=== PATIENT | male | born 1975 | race Caucasian/White ===

== ENCOUNTER 2020-05-31 07:41 | Outpatient (REF) | payer MEDICAID, SELFPAY | END 2020-05-31 07:42 | disposition home or self-care (01) | LOC: HO.LAB 07:41 | PROVIDERS: Visit Provider Internal Medicine | DX: Z20.828 Contact with and (suspected) exposure to other viral communicable diseases (principal) | CPT/HCPCS: C9803; U0003 ==

== ENCOUNTER 2020-06-10 17:44 | Outpatient (REF) | payer MEDICAID, SELFPAY | END 2020-06-10 17:45 | disposition home or self-care (01) | LOC: HO.LAB 17:44 | PROVIDERS: Visit Provider Internal Medicine | DX: Z20.828 Contact with and (suspected) exposure to other viral communicable diseases (principal) | CPT/HCPCS: C9803; U0003 ==

== ENCOUNTER 2020-07-05 08:21 | Outpatient (REF) | payer MEDICAID, SELFPAY | END 2020-07-05 08:22 | disposition home or self-care (01) | LOC: HO.LAB 08:21 | PROVIDERS: Visit Provider Internal Medicine | DX: Z20.828 Contact with and (suspected) exposure to other viral communicable diseases (principal) | CPT/HCPCS: C9803; U0003 ==

== ENCOUNTER 2020-08-22 17:07 | Outpatient (REF) | payer MEDICAID, SELFPAY | END 2020-08-22 17:08 | disposition home or self-care (01) | LOC: HO.LAB 17:07 | PROVIDERS: Visit Provider Internal Medicine | DX: Z20.822 Contact with and (suspected) exposure to COVID-19 (principal) | CPT/HCPCS: 36415; C9803; U0003; U0005 ==

== ENCOUNTER 2020-11-11 14:29 | Outpatient (REF) | payer MEDICAID, SELFPAY ==
[2020-11-11 14:55] LABS: COVID-19 Test Negative (Negative)
== END 2020-11-11 14:30 | disposition home or self-care (01) ==
LOC: HO.LAB 14:29
PROVIDERS: Visit Provider Internal Medicine
DX: Z20.822 Contact with and (suspected) exposure to COVID-19 (principal)
CPT/HCPCS: 36415; 87635; C9803

== ENCOUNTER 2020-11-14 07:46 | Outpatient (REF) | payer MEDICAID, SELFPAY | END 2020-11-14 07:47 | disposition home or self-care (01) | LOC: HO.LAB 07:46 | PROVIDERS: Visit Provider Internal Medicine | DX: Z20.822 Contact with and (suspected) exposure to COVID-19 (principal) | CPT/HCPCS: C9803; U0003; U0005 ==

== ENCOUNTER → 2021-08-12 14:38 | Outpatient (BNVA) | payer MEDICAID, SELFPAY | PROVIDERS: PCP Family Medicine; Visit Provider Urology | DX: N52.9 Male erectile dysfunction, unspecified (principal) | CPT/HCPCS: 99212 ==

== ENCOUNTER 2021-08-29 10:36 | Outpatient (REF) | payer MEDICAID, SELFPAY ==
[2021-08-29 11:26] LABS: Hematocrit 45.6 % (42.0-52.0); Hemoglobin 13.2 g/dl (14.0-18.0); Mean Corpuscular HGB Conc 28.9 g/dl (31.0-36.0); Mean Corpuscular Hemoglobin 21.3 pg (27.0-33.0); Mean Corpuscular Volume 73.4 fL (80.0-98.0); Platelet Count 246 X10*3/uL (160-400); Red Blood Count 6.21 X10*6/uL (4.60-5.80); Red Cell Distribution Width 15.7 % (11.0-16.0); White Blood Count 4.8 X10*3/uL (4.8-10.8)
[2021-08-29 11:38] LABS: Estimated Average Glucose 120 mg/dL; Hemoglobin A1c % 5.8 %
[2021-08-29 11:58] LABS: Alanine Aminotransferase 16 U/L (0-40); Albumin Level 4.3 g/dL (3.5-5.0); Alkaline Phosphatase 67 U/L (39-117); Anion Gap 9 (12-20); Aspartate Amino Transferase 21 U/L (5-37); Bilirubin Direct 0.4 mg/dL (0.0-0.5); Blood Urea Nitrogen 11 mg/dL (9-16); Calcium 9.6 mg/dL (8.4-10.2); Carbon Dioxide 29 mmol/L (22-29); Chloride 106 mmol/L (96-108); Cholesterol 145 mg/dL; Estimated Glomerular Filt Rate > 60; Glucose Fasting 102 mg/dL (60-99); HDL Cholesterol 31 mg/dL; LDL Cholesterol Calculated 101 mg/dl; Potassium 4.4 mmol/L (3.3-5.1); Sodium 140 mmol/L (135-145); Total Protein 7.5 g/dL (6.5-8.0); Triglycerides 66 mg/dL
[2021-09-03 12:51] LABS: Testosterone, Total 578 ng/dL (250-1100)
== END 2021-08-29 10:37 | disposition home or self-care (01) ==
LOC: HO.LAB 10:36
PROVIDERS: PCP Family Medicine; Visit Provider Urology
DX: E11.9 Type 2 diabetes mellitus without complications (principal); N52.9 Male erectile dysfunction, unspecified; E29.1 Testicular hypofunction
CPT/HCPCS: 36415; 80048; 80061; 80076; 83036; 84403; 85027

== ENCOUNTER → 2021-09-09 11:55 | Outpatient (BNVA) | payer MEDICAID, SELFPAY | PROVIDERS: PCP Family Medicine; Visit Provider Urology ==

== ENCOUNTER 2022-01-15 22:32 | Emergency (ER) | payer MEDICAID, SELFPAY ==
[2022-01-15 23:18] VITALS: BP 133/86; PULSE 67; RESP 20; TEMP 36.4; O2SAT 98; BMI 27.4
[2022-01-15 23:53] LABS: Strep A Nucleic Acid Negative (Negative)
[2022-01-16 00:06] LABS: COVID-19 Test Negative (Negative); IDNOW Serial# 16C4AD1C; Influenza A Negative (Negative); Influenza B2 Negative (Negative)
--- NOTE | 2022-01-16 00:25 | ED.URI ---
HPI - URI/Sore Throat General Chief Complaint: General Medical Stated Complaint: throat pain Time Seen by Provider: 01/16/22 00:24 Source: patient Mode of arrival: ambulatory Limitations: no limitations History of Present Illness HPI Narrative: Patient with slight sore throat with swelling of the right side of the neck for last 2 weeks no cough no fever no chills no shortness of breath no earaches Related Data Previous Rx's Medication Instructions Recorded tadalafil 5 mg tablet 5 mg PO DAILY 90 days #90 tabs 09/09/21 cephalexin 500 mg capsule 500 mg PO QID 10 days #40 caps 01/16/22 Allergies Allergy/AdvReac Type Severity Reaction Status Date / Time No Known Allergies Allergy Verified 09/09/21 11:56 Review of Systems Review of Systems: Yes all other systems are reviewed and are negative [facility] Past Medical History Medical History Abdominal distension, gaseous Abnormal CT of the abdomen Asthma Dyspepsia GERD (gastroesophageal reflux disease) History of diverticulitis Thalassemia Umbilical hernia Surgical History History of surgery Social History Social History Advance Directives: No Advance Directives Information Provided: Yes Physical Exam Vital Signs: Vital Signs: Last Vital Signs Temp 97.5 F 01/15/22 23:18 Pulse 74 01/16/22 00:41 Resp 16 01/16/22 00:41 BP 136/86 01/16/22 00:41 Pulse Ox 95 01/16/22 00:41 O2 Del Method 01/16/22 00:41 BMI result Body Mass Index 27.4 HEENT: Ears: hearing grossly normal bilaterally, external ears normal, TM's normal bilaterally and EAC's normal Mouth: Normal oral and palatal mucosa present Throat: Yes posterior oropharynx normal Neck: Neck: Yes lymphadenopathy (Anterior cervical submandibular lymph node) MDM - URI/Sore Throat Lab Data Labs: Lab Results 01/15/22 01/15/22 01/15/22 Range/Units 23:32 23:32 23:32 COVID-19 ([facility]) Negative (Negative) COVID-19 Clin Com See Note Influenza Type A ([facility]) Negative (Negative) Influenza Type B ([facility]) Negative (Negative) Influenza A & B Note See Note S. pyogenes GrpA [facility] Negative (Negative) Discharge Plan Discharge Clinical Impression: Folliculitis Patient Disposition: Home, Self-Care Instructions: Folliculitis (ED) Additional Instructions: Care as advised take antibiotic as prescribed Prescriptions: New cephalexin 500 mg capsule 500 mg PO QID 10 Days Qty: 40 0RF No Action tadalafil 5 mg tablet 5 mg PO DAILY 90 Days Qty: 90 1RF Interventions: ED Discharge Assessment Last Done: 01/16/22 00:45 Discharge Date/Time: 01/16/22 00:46
[2022-01-16] MEDS: cephALEXin 500 MG CAPSULE PO (00:40)
[2022-01-16 00:41] VITALS: BP 136/86; PULSE 74; RESP 16; O2SAT 95
== END 2022-01-16 00:46 | disposition home or self-care (01) ==
PROVIDERS: Emergency Provider Internal Medicine
DX: L73.9 Follicular disorder, unspecified (principal); J02.9 Acute pharyngitis, unspecified; Z20.822 Contact with and (suspected) exposure to COVID-19; R59.1 Generalized enlarged lymph nodes
CPT/HCPCS: 36415; 87502; 87635; 87651; 99282; 99283

== ENCOUNTER → 2022-02-23 16:01 | Outpatient (BNVA) | payer MEDICAID, SELFPAY | PROVIDERS: Referring Provider Family Medicine; Visit Provider Nurse Practitioner | DX: Z01.818 Encounter for other preprocedural examination (principal); K21.9 Gastro-esophageal reflux disease without esophagitis; R11.0 Nausea; Z79.899 Other long term (current) drug therapy | CPT/HCPCS: 99202; 99212 ==

== ENCOUNTER 2022-05-17 06:18 | Day surgery (SDC) | payer MEDICAID, SELFPAY ==
[2022-05-12 09:48] VITALS: BMI 27.4
--- NOTE | 2022-05-14 13:08 | MHC.SHP ---
Pre-Procedural Eval Section A Date of Service: 05/14/22 The patient is an INPATIENT: No Changes since office visit: No Cold of Flu in the past 2 weeks, No New Medical Problems, No Changes in Medication and No Patient answered all questions The History & Physical has been completed within 30 days and I have reviewed it.: Yes Section B Chief Complaint: Age-related nuclear cataract, right eye Allergies: Allergies Allergy/AdvReac Type Severity Reaction Status Date / Time No Known Allergies Allergy Verified 03/17/22 14:01 Plan Diagnosis/Plan: Unchanged I have reviewed the history and physical and performed a pertinent physical examination on my patient. No changes have occurred unless specified.
[2022-05-17 06:50] VITALS: BMI 28.3
[2022-05-17 06:58] VITALS: BP 123/73; PULSE 66; RESP 16; TEMP 36.1; O2SAT 95
[2022-05-17] MEDS: Tetracaine HCl/PF 0.5% Oph Sol 4 ML DROPS 1 DROP EYE-RIGHT (07:04)
[2022-05-17] MEDS: Cyclopentolate 1 % Ophth Sol 2 ML DRPBTL 1 DROP EYE-RIGHT ×3 (07:07→07:19)
[2022-05-17] MEDS: Tropicamide 1 % Ophth Sol 3 ML BTL 1 DROP EYE-RIGHT ×3 (07:08→07:21)
[2022-05-17] MEDS: Lactated Ringers 500 ML 50 ML IV (07:09)
[2022-05-17] MEDS: Ketorolac Tromethamine 0.5% Op 5 ML DROPS 1 DROP EYE-RIGHT ×3 (07:10→07:22)
[2022-05-17] MEDS: Phenylephrine HCL 2.5% Oph SoL 2 ML BOTTLE 1 DROP EYE-RIGHT ×3 (07:12→07:23)
--- NOTE | 2022-05-17 07:18 | P.CONAN_ITS ---
[facility] Active Problems Active Problems: All Active Problems (Updated 05/12/22 @ 09:44 by Sandee Yeager RN) Erectile dysfunction (Acute) Pre-op examination (Acute) Past Medical History Medical History (Updated 05/12/22 @ 09:44 by Sandee Yeager RN) Abdominal distension, gaseous Abnormal CT of the abdomen Acute renal failure Asthma Depression Dyspepsia GERD (gastroesophageal reflux disease) History of diverticulitis Thalassemia Umbilical hernia Family History Family history of problems with anesthesia: No Surgical History Surgical History (Updated 05/12/22 @ 09:49 by Sandee Yeager RN) H/O esophagogastroduodenoscopy H/O inguinal hernia repair S/P ORIF (open reduction internal fixation) fracture History of Problems with Anesthesia: No Social History Social History Patient Tobacco Use Status: Never used Tobacco Use of substances other than those prescribed or required for medical reasons: No Are you DNR?: No Advance Directives: No Advance Directives Information Provided: Yes Meds Allergies Allergy/AdvReac Type Severity Reaction Status Date / Time No Known Allergies Allergy Verified 03/17/22 14:01 Active Medications: Current Medications Povidone Iodine (Povidone Iodine 5 % Ophth Soln 30 Ml Bottle) 1 appl EYE-RIGHT PREOP PRN PRN Reason: Pre-Op Surgical Implant Prophy Home Medications Medication Instructions Recorded Confirmed Last Taken Type albuterol sulfate 90 mcg/actuation 2 puff PO Q4-6H PRN dyspnea 02/23/22 05/17/22 Unknown History aerosol inhaler (ProAir HFA) omeprazole 20 mg capsule,delayed 20 mg PO BID 02/23/22 05/17/22 Unknown History release Exam Exam Date and Time: May 17, 2022 0718 Height,Weight and Vital Signs: Height 5 ft 5 in Weight 77.111 kg Last Vital Signs Temp 97.0 F 05/17/22 06:58 Pulse 66 05/17/22 06:58 Resp 16 05/17/22 06:58 BP 123/73 05/17/22 06:58 Pulse Ox 95 05/17/22 06:58 O2 Del Method 05/17/22 06:58 Airway Mallampati Class: II TM Dist: >3cm Neck ROM: Full Heart: rrr Lungs: cta Assessment and Plan Assessment Anesthesia Assessment: Anesthesia Plan Discussed and Chart Reviewed Final Anesthetic Review Family History of Problems with Anesthesia: No History of Problems with Anesthesia: No NPO: Yes ASA Class: II Final Preanesthetic Review: No Changes in Pt Med Stat, Meds/Allgs Chart Reviewed and Consent Obtained/Reviewed Patient Risk: Intermediate Procedure Risk: Intermediate Anesthetic Plan Anesthetic Plan: MAC: Disposition: Standard PACU
--- NOTE | 2022-05-17 08:03 | HO.PNOPHT ---
Ophthalmology Procedure Procedure Date of Service: 05/17/22 Ophthalmology Viscoelastic: Jimi Juarezt Dual Pack Pro Ophthalmology Lenses: TECGIA [id number] (19) Procedure Notes: PREOPERATIVE DIAGNOSIS: Decreased visual acuity right eye secondary to cataract POSTOPERATIVE DIAGNOSIS: Same PROCEDURE: Right cataract extraction with intraocular lens insertion SURGEON: Altaf Santillan M.D. ANESTHESIA: Topical/MAC ESTIMATED BLOOD LOSS: None COMPLICATIONS: None After obtaining informed consent, the patient was brought to the operating room suite and placed in the supine position. After adequate sedation per anesthesia, topical drops of Tetracaine were given to the right eye. The eye was then prepped and draped in the usual sterile fashion. The operating room microscope was then positioned over the operative eye and a lid speculum placed. A paracentesis was created. Viscoelastic was then instilled into the anterior chamber. A three plane incision was then created temporally, utilizing a 2.85 mm keratome. Capsulotomy forceps were then utilized to create a circular tear capsulotomy. Hydrodissection and hydrodelineation were carried out until adequate mobilization of the nucleus occurred. Phacoemulsification was then utilized to remove the dense central nucleus followed by removal of the cortical material utilizing the automated aspiration irrigation unit. Viscoelastic was instilled into the posterior capsular bag followed by placement of a posterior chamber intraocular lens without difficulty. The residual Viscoelastic was then removed utilizing the automated IA machine. The wound was checked and found to be watertight. The patient tolerated the procedure well and the lid speculum was removed. Intracameral injection of Vigamox 0.1 mL followed by a subtenon injection of Kenalog-40 0.2 mL were administered. The patient will be seen in the a.m.
[2022-05-17 08:34] VITALS: BP 111/74; PULSE 62; RESP 16; TEMP 36.1; O2SAT 94
== END 2022-05-17 08:42 | disposition home or self-care (01) ==
PROVIDERS: PCP Family Medicine; Visit Provider Ophthalmology
PROC: (CPT 66985; principal; 2022-05-17 08:20)
DX: H25.041 Posterior subcapsular polar age-related cataract, right eye (principal); H54.7 Unspecified visual loss; H35.09 Other intraretinal microvascular abnormalities; H17.89 Other corneal scars and opacities; R03.0 Elevated blood-pressure reading, without diagnosis of hypertension; J45.20 Mild intermittent asthma, uncomplicated; D56.9 Thalassemia, unspecified; K21.9 Gastro-esophageal reflux disease without esophagitis; Z79.899 Other long term (current) drug therapy
CPT/HCPCS: 66984; J2250; J3010; J3300; V2632

== ENCOUNTER 2022-08-10 06:07 | Day surgery (SDC) | payer MEDICAID, SELFPAY ==
[2022-08-04 15:31] VITALS: BMI 28.3
[2022-08-10 06:42] VITALS: BP 127/77; PULSE 56; RESP 16; TEMP 36; O2SAT 96; BMI 28.3
--- NOTE | 2022-08-10 06:46 | HO.ANESPROP2 ---
HPI - Anesthesia Eval Consult details Narrative: 46 M for colonoscopy [facility] Active Problems Active Problems: All Active Problems (Updated 05/12/22 @ 09:44 by Sandee Yeager RN) Erectile dysfunction (Acute) Pre-op examination (Acute) Past Medical History Medical History (Updated 05/12/22 @ 09:44 by Sandee Yeager RN) Abdominal distension, gaseous Abnormal CT of the abdomen Acute renal failure Asthma Depression Dyspepsia GERD (gastroesophageal reflux disease) History of diverticulitis Thalassemia Umbilical hernia Functional capacity: independent ambulation Family History Family history of problems with anesthesia: No Surgical History Surgical History (Updated 05/12/22 @ 09:49 by Sandee Yeager RN) H/O esophagogastroduodenoscopy H/O inguinal hernia repair S/P ORIF (open reduction internal fixation) fracture History of Problems with Anesthesia: No Social History Social History Are you a primary care professionals to a significant other at home: No Do you presently have visiting nurse or other home services: No Patient Tobacco Use Status: Never used Tobacco Meds Allergies Allergy/AdvReac Type Severity Reaction Status Date / Time No Known Allergies Allergy Verified 08/04/22 15:30 Home Medications Medication Instructions Recorded Confirmed Last Taken Type albuterol sulfate 90 mcg/actuation 2 puff PO Q4-6H PRN dyspnea 02/23/22 08/04/22 Unknown History aerosol inhaler (ProAir HFA) omeprazole 20 mg capsule,delayed 20 mg PO BID 02/23/22 08/04/22 Unknown History release Exam Exam Date and Time: August 10, 2022 0646 Height,Weight and Vital Signs: Height 5 ft 5 in Weight 77.111 kg Last Vital Signs Temp 96.8 F 08/10/22 06:42 Pulse 56 08/10/22 06:42 Resp 16 08/10/22 06:42 BP 127/77 08/10/22 06:42 Pulse Ox 96 08/10/22 06:42 O2 Del Method 08/10/22 06:42 Airway Mallampati Class: III TM Dist: >3cm Neck ROM: Full Loose/Missing/Broken Teeth: Yes (Crowns ) Heart: S1,S2 Lungs: b/l breath sounds Assessment and Plan Assessment Anesthesia Assessment: Anesthesia Plan Discussed and Chart Reviewed Final Anesthetic Review Family History of Problems with Anesthesia: No History of Problems with Anesthesia: No NPO: Yes ASA Class: II Final Preanesthetic Review: Meds/Allgs Chart Reviewed, Consent Obtained/Reviewed and Anes Risks/Benef Reviewed Patient Risk: Intermediate Procedure Risk: Intermediate Anesthetic Plan Anesthetic Plan: MAC: Disposition: Standard PACU
--- NOTE | 2022-08-10 07:30 | MHC.SHP ---
Pre-Procedural Eval Section A Date of Service: 08/10/22 The patient is an INPATIENT: No The History & Physical has been completed within 30 days and I have reviewed it.: No Section B Chief Complaint: Colon cancer screening Details of Present Illness: COLON CANCER SCREENING Relevant Family History (Specify if Yes): No Relevant Social History: None Present Medications: see Short Stay Collaborative assessment Medical History: Significant History (Abdominal distension, gaseous Abnormal CT of the abdomen Acute renal failure Asthma Depression Dyspepsia GERD (gastroesophageal reflux disease) History of diverticulitis Thalassemia Umbilical hernia) History of Previous Operations: Relevant previous surgery/procedure and date(s) (H/O esophagogastroduodenoscopy H/O inguinal hernia repair S/P ORIF (open reduction internal fixation) fracture) Allergies: Allergies Allergy/AdvReac Type Severity Reaction Status Date / Time No Known Allergies Allergy Verified 08/04/22 15:30 Review of Systems Sugical H&P ROS: Negative: Constitution, Cardiovascular, Respiratory and Gastrointestinal Exam Surgical H&P Exam: Normal: Heart, Normal: Lungs, Normal: Extremities and Normal: Abdomen Plan Diagnosis/Plan: Unchanged I have reviewed the history and physical and performed a pertinent physical examination on my patient. No changes have occurred unless specified. Time Spent With Patient Time: Total time managing care of this patient today ____ minutes.
--- NOTE | 2022-08-10 08:06 | P.BOP_ITS ---
Brief Operative Note Date of Service: 08/10/22 Pre-op diagnosis: Colon cancer screening Post-op diagnosis: other (Diverticulosis, hemorrhoids) Procedure: COLONOSCOPY TILL CECUM Surgeon: Jules Arias MD Anesthesia: MAC Was an Health Science Specialist used for this Procedure?: Yes Health Science Specialist: Yue Wilks Estimated blood loss (mL): 0 Pathology: none sent Condition: stable Disposition: PACU
--- NOTE | 2022-08-10 08:07 | W.PM.OPN ---
Operative Note Operative Note Date of Service: 08/10/22 Narrative: Pre-op diagnosis: Colon cancer screening Post-op diagnosis:?other (Diverticulosis, hemorrhoids) Surgeon: Jules Arias MD Anesthesia:?MAC COLONOSCOPY TILL CECUM Consent: Indications for the procedure and potential complications of bleeding, perforation, reaction to medications and missed diagnosis were discussed with the patient and informed consent was obtained. Instrument: Olympus PCF H 190 L variable stiffness pediatric colonoscope Monitoring: Vital signs and clinical assessment, intermittent blood pressure monitoring, continuous EKG monitoring, Pulse oximetry and Carbon Dioxide monitoring were done throughout the procedure. Colon withdrawl time was 10 minutes. Procedure: The patient was placed in the left lateral decubitis position and pre-procedure medications were administered. After a digital rectal examination of the ano-rectum, the video colonoscope was inserted into the rectum and advanced through the colon to the cecum. The colonoscope was slowly withdrawn in a retrograde panoramic fashion and the colon mucosa was carefully examined including a retroflexed view of the rectum. Findings and interventions are described below. Procedure Difficulty: Without difficulty Findings: Terminal Ileum: Not evaluated Cecum: Normal Ascending Colon: Normal Transverse Colon: Normal Descending Colon: Normal Sigmoid Colon: Mild diverticulosis Rectum: Normal Ano-rectum: Small internal hemorrhoids Colon preparation: Good Impression and Post Procedure Diagnosis: Colonoscopy Findings: No polyps were detected Mild diverticulosis seen in the sigmoid colon Small hemorrhoids on retroflexed exam. Plan: Patient has an appointment on 08/24/22 in the GI Clinic with Silvia Overton NP . Repeat Colonoscopy in 10 years. Above findings were reviewed with the patient and diverticulosis handout was given in the discharge area
[2022-08-10 08:08] VITALS: BP 103/50; PULSE 59; RESP 16; TEMP 37.2; O2SAT 98
[2022-08-10 08:23] VITALS: BP 104/56; PULSE 53; RESP 16; O2SAT 98
[2022-08-10 08:38] VITALS: BP 118/74; PULSE 74; RESP 16; TEMP 37.2; O2SAT 98
== END 2022-08-10 09:59 | disposition home or self-care (01) ==
PROVIDERS: PCP Family Medicine; Visit Provider Internal Medicine Gastroenterology
PROC: 0DJD8ZZ Inspection of Lower Intestinal Tract, Via Natural or Artificial Opening Endoscopic (ICD-10-PCS; CPT 45378; principal; 2022-08-10 07:40)
DX: Z12.11 Encounter for screening for malignant neoplasm of colon (principal); K57.30 Diverticulosis of large intestine without perforation or abscess without bleeding; K64.8 Other hemorrhoids; K21.9 Gastro-esophageal reflux disease without esophagitis; J45.909 Unspecified asthma, uncomplicated; D56.9 Thalassemia, unspecified; R73.03 Prediabetes; F32.A Depression, unspecified; Z86.19 Personal history of other infectious and parasitic diseases; Z79.899 Other long term (current) drug therapy
CPT/HCPCS: 45378

== ENCOUNTER → 2022-08-24 15:28 | Outpatient (BNVA) | payer MEDICAID, SELFPAY | PROVIDERS: PCP Family Medicine; Visit Provider Nurse Practitioner | DX: K57.30 Diverticulosis of large intestine without perforation or abscess without bleeding (principal); K64.8 Other hemorrhoids; Z98.890 Other specified postprocedural states | CPT/HCPCS: 99212 ==

== ENCOUNTER 2022-10-13 10:00 | Outpatient (REF) | payer MEDICAID, SELFPAY | END 2022-10-13 10:01 | disposition home or self-care (01) | LOC: HO.LNP 10:00 | PROVIDERS: PCP Family Medicine; Visit Provider Surgery | DX: D23.5 Other benign neoplasm of skin of trunk (principal) | CPT/HCPCS: 11403; 88305; 99202 ==

== ENCOUNTER → 2022-10-20 10:25 | Outpatient (BNVA) | payer MEDICAID, SELFPAY | PROVIDERS: PCP Family Medicine; Visit Provider Surgery ==

== ENCOUNTER 2022-12-07 09:53 | Emergency (ER) | payer MEDICAID, SELFPAY ==
--- NOTE | ~2022-12-07 | XR_ITS ---
EXAMINATION: XR ELBOW, RIGHT CLINICAL INFORMATION: Pain COMPARISON: None available. TECHNIQUE: AP, lateral, and oblique views of the right elbow. FINDINGS: The bones and soft tissues are normal. No fracture or joint effusion. Alignment is anatomic. Joint spaces are maintained. XR/XR elbow RT 2V IMPRESSION: Normal right elbow.
[2022-12-07 10:05] VITALS: BP 143/77; PULSE 84; RESP 14; TEMP 36.6; O2SAT 96; BMI 22.5
--- NOTE | 2022-12-07 10:56 | ED.EXTPRO ---
HPI - Extremity Problem General Chief complaint: Extremity Injury, Upper Stated complaint: R arm pain Time Seen by Provider: 12/07/22 10:55 History of Present Illness HPI Narrative: patient complains of right elbow pain which began 5 days ago without injury, he has no repetitive activities, there is no overuse from work or sports There is no numbness weakness or tingling he denies any redness or swelling to the joint, there are no other joint swollen or painful Related Data Home Medications Medication Instructions Recorded Confirmed albuterol sulfate 90 mcg/actuation 2 puff PO Q4-6H PRN dyspnea 02/23/22 08/04/22 aerosol inhaler (ProAir HFA) omeprazole 20 mg capsule,delayed 20 mg PO BID 02/23/22 08/04/22 release Previous Rx's Medication Instructions Recorded naproxen 500 mg tablet (Naprosyn) 500 mg PO BID PRN pain #20 tabs 12/07/22 Allergies Allergy/AdvReac Type Severity Reaction Status Date / Time No Known Allergies Allergy Verified 10/20/22 10:31 [facility] Past Medical History Source: nursing notes reviewed Medical History Abdominal distension, gaseous Abnormal CT of the abdomen Acute renal failure Asthma Depression Dyspepsia GERD (gastroesophageal reflux disease) History of diverticulitis Thalassemia Umbilical hernia Surgical History H/O esophagogastroduodenoscopy H/O inguinal hernia repair S/P ORIF (open reduction internal fixation) fracture Social History Social History Are you a primary long term care administrator to a significant other at home: No Do you presently have visiting nurse or other home services: No Patient Tobacco Use Status: Never used Tobacco Advance Directives: No Advance Directives Information Provided: Yes Physical Exam Vital Signs: Vital Signs: Last Vital Signs Temp 97.8 F 12/07/22 10:05 Pulse 84 12/07/22 10:05 Resp 14 12/07/22 10:05 BP 143/77 H 12/07/22 10:05 Pulse Ox 96 12/07/22 10:05 BMI result Body Mass Index 22.5 general appearance comfortable no distress Head is normocephalic atraumatic Neck is supple Respiratory no distress Extremities full range of motion x4 including right elbow, the right elbow had some lateral tenderness but was otherwise completely normal in appearance there is no redness no swelling, there is full range of motion but there is some discomfort when he extends it fully but is easily able to extend it fully, neurovascular intact distal, no rashes no wounds rash Other extremities normal Course Course Course Narrative: x-ray of right elbow was normal Exam of the right elbow was normal except for lateral tenderness with no redness or swelling, patient likely has a tendinitis and is treated with anti-inflammatory Discharge Plan Discharge Clinical Impression: Right elbow tendinitis Patient Disposition: Home, Self-Care Additional Instructions: you likely have tendinitis which is an inflammation of tendons in the elbow We are treating with anti-inflammatory, if does not get better follow with orthopedist for further evaluation and possible cortisone injection Return any time any concerns Prescriptions: New naproxen [Naprosyn] 500 mg tablet 500 mg PO BID PRN (Reason: pain) Qty: 20 0RF No Action albuterol sulfate [ProAir HFA] 90 mcg/actuation HFA aerosol inhaler 2 puff PO Q4-6H PRN (Reason: dyspnea) omeprazole 20 mg capsule,delayed release(DR/EC) 20 mg PO BID Referrals: Antoine Pulido MD [Physician] - ( right elbow tendinitis)
== END 2022-12-07 11:20 | disposition home or self-care (01) ==
PROVIDERS: Emergency Provider Emergency Medicine Emergency Medical Services; PCP Family Medicine
DX: M79.601 Pain in right arm (principal); M77.8 Other enthesopathies, not elsewhere classified
CPT/HCPCS: 73070; 99283

== ENCOUNTER → 2022-12-16 10:31 | Outpatient (BNVA) | payer MEDICAID, SELFPAY | PROVIDERS: PCP Family Medicine; Visit Provider Nurse Practitioner | DX: Z01.818 Encounter for other preprocedural examination (principal); K22.10 Ulcer of esophagus without bleeding; R13.10 Dysphagia, unspecified | CPT/HCPCS: 99212 ==

== ENCOUNTER 2022-12-17 09:36 | Outpatient (REF) | payer MEDICAID, SELFPAY ==
[2022-12-17 09:54] LABS: MANUAL DIFF FLAG NO
[2022-12-17 10:58] LABS: Basophils Absolute Auto 0.1 X10*3/uL (0.0-0.2); Basophils Percent Auto 1.2 % (0-2); Eosinophils Absolute Auto 0.1 X10*3/uL (0.0-0.4); Eosinophils Percent Auto 1.6 % (0-4); Hematocrit 47.7 % (42.0-52.0); Lymphocytes Percent Auto 40.3 % (20-40); Mean Corpuscular HGB Conc 29.4 g/dl (31.0-36.0); Mean Corpuscular Hemoglobin 21.9 pg (27.0-33.0); Mean Corpuscular Volume 74.5 fL (80.0-98.0); Mean Platelet Volume 10.5 fL (9.4-12.4); Monocytes Absolute Auto 0.5 X10*3/uL (0.1-1.2); Monocytes Percent Auto 10.4 % (2-11); Neutrophils Absolute Auto 2.3 x10*3/uL (2.0-8.3); Neutrophils Percent Auto 46.5 % (45-73); Platelet Count 241 X10*3/uL (160-400); Red Cell Distribution Width 15.3 % (11.0-16.0); White Blood Count 4.9 X10*3/uL (4.8-10.8)
[2022-12-17 11:49] LABS: Alanine Aminotransferase 34 U/L (0-40); Albumin Level 4.4 g/dL (3.5-5.0); Alkaline Phosphatase 59 U/L (39-117); Anion Gap 12 (12-20); Aspartate Amino Transferase 30 U/L (5-37); Bilirubin Total 1.3 mg/dL (0.0-1.0); Blood Urea Nitrogen 12 mg/dL (9-16); Calcium 9.5 mg/dL (8.4-10.2); Carbon Dioxide 27 mmol/L (22-29); Chloride 105 mmol/L (96-108); Estimated Glomerular Filt Rate > 60; Glucose Random 101 mg/dL (60-115); Potassium 4.1 mmol/L (3.3-5.1); Sodium 140 mmol/L (135-145); Total Protein 7.7 g/dL (6.5-8.0)
== END 2022-12-17 09:37 | disposition home or self-care (01) ==
LOC: HO.LAB 09:36
PROVIDERS: PCP Family Medicine; Visit Provider Nurse Practitioner
DX: Z01.818 Encounter for other preprocedural examination (principal); K22.10 Ulcer of esophagus without bleeding; R13.10 Dysphagia, unspecified
CPT/HCPCS: 36415; 80053; 85025; 87338

== ENCOUNTER 2023-01-03 08:28 | Outpatient (REF) | payer MEDICAID, SELFPAY ==
--- NOTE | ~2023-01-03 | US_ITS ---
EXAMINATION: US ABDOMEN COMPLETE CLINICAL INFORMATION: Ulcer of esophagus without bleeding. COMPARISON: X-ray abdomen [facility] 04/18/2019. CT abdomen and pelvis 10/20/2017. TECHNIQUE: Real-time imaging of the abdominal viscera. FINDINGS: PANCREAS: Normal. ABDOMINAL AORTA: The proximal, mid, and distal segments are normal in caliber. INFERIOR VENA CAVA: Visualized portions are normal. LIVER: The liver is normal in size. The liver contour is normal. There is diffuse increased liver parenchymal echogenicity, consistent with hepatic steatosis. Multiple areas of focal fatty sparing are present. No focal hepatic lesion. There is no intrahepatic biliary duct dilatation seen. GALLBLADDER: Normal. The gallbladder is physiologically distended without evidence of stones, sludge, polyps, wall thickening or pericholecystic fluid. COMMON BILE DUCT: Normal in caliber measuring 0.2 cm in diameter. RIGHT KIDNEY: Normal. No hydronephrosis. No renal calculi or focal parenchymal lesions. The kidney measures 10.8 cm in maximum dimension. LEFT KIDNEY: Normal. No hydronephrosis. No renal calculi or focal parenchymal lesions. The kidney measures 9.9 cm in maximum dimension. SPLEEN: Normal. The spleen measures 9.5 cm in maximum dimension. FREE FLUID: None. US/US abdomen complete IMPRESSION: Hepatic steatosis.
== END 2023-01-03 08:29 | disposition home or self-care (01) ==
LOC: HO.US 08:28
PROVIDERS: PCP Family Medicine; Visit Provider Nurse Practitioner
DX: Z01.818 Encounter for other preprocedural examination (principal); R13.10 Dysphagia, unspecified; K22.10 Ulcer of esophagus without bleeding
CPT/HCPCS: 76700

== ENCOUNTER → 2023-01-06 10:43 | Outpatient (BNVA) | payer MEDICAID, SELFPAY | PROVIDERS: PCP Family Medicine; Visit Provider Nurse Practitioner | DX: K22.10 Ulcer of esophagus without bleeding (principal); R13.10 Dysphagia, unspecified; K59.00 Constipation, unspecified | CPT/HCPCS: 99212 ==

== ENCOUNTER 2023-02-01 12:14 | Day surgery (SDC) | payer MEDICAID, SELFPAY ==
--- NOTE | 2023-01-31 12:12 | HO.ANESPROP2 ---
Documented by User: Shira Burgos NP 01/31/23 12:18 HPI - Anesthesia Eval Consult details Narrative: 47yo M for Upper Endoscopy [facility] Active Problems Active Problems: All Active Problems (Updated 01/06/23 @ 11:15 by DELORES Lewis) Constipation (Acute) Dysphagia (Acute) Erosive esophagitis (Acute) Dermatofibroma of back (Acute) H/O colonoscopy (Acute) Erectile dysfunction (Acute) Pre-op examination (Acute) Past Medical History Medical History Abdominal distension, gaseous Abnormal CT of the abdomen Acute renal failure Asthma Depression Dyspepsia GERD (gastroesophageal reflux disease) History of diverticulitis Thalassemia Umbilical hernia Family History Family history of problems with anesthesia: No Surgical History Surgical History H/O esophagogastroduodenoscopy H/O inguinal hernia repair S/P ORIF (open reduction internal fixation) fracture History of Problems with Anesthesia: No Social History Social History Are you a primary daycare worker to a significant other at home: No Do you presently have visiting nurse or other home services: No Alcohol intake: never Patient Tobacco Use Status: Never used Tobacco Second Hand Smoke Exposure: No Meds Allergies Allergy/AdvReac Type Severity Reaction Status Date / Time No Known Allergies Allergy Verified 10/20/22 10:31 Home Medications Medication Instructions Recorded Confirmed Last Taken Type albuterol sulfate 90 mcg/actuation 2 puff PO Q4-6H PRN dyspnea 02/23/22 02/01/23 Unknown History aerosol inhaler (ProAir HFA) Exam Exam Date and Time: January 31, 2023 1212 Pertinent Lab Results Pertinent Lab Results: Laboratory Tests 12/17/22 12/17/22 09:52 09:52 WBC 4.9 Hgb 14.0 Hct 47.7 Plt Count 241 Sodium 140 Potassium 4.1 Chloride 105 Carbon Dioxide 27 BUN 12 Creatinine 1.05 Assessment and Plan Assessment Anesthesia Assessment: Chart Reviewed Final Anesthetic Review Family History of Problems with Anesthesia: No History of Problems with Anesthesia: No Documented by User: Sarah Dsouza MD 02/01/23 16:11 [facility] Past Medical History Medical History Abdominal distension, gaseous Abnormal CT of the abdomen Acute renal failure Asthma Depression Dyspepsia GERD (gastroesophageal reflux disease) History of diverticulitis Thalassemia Umbilical hernia Surgical History Surgical History H/O esophagogastroduodenoscopy H/O inguinal hernia repair S/P ORIF (open reduction internal fixation) fracture Social History Social History Are you a primary daycare worker to a significant other at home: No Do you presently have visiting nurse or other home services: No Alcohol intake: never Patient Tobacco Use Status: Never used Tobacco Second Hand Smoke Exposure: No Meds Allergies Allergy/AdvReac Type Severity Reaction Status Date / Time No Known Allergies Allergy Verified 10/20/22 10:31 Home Medications Medication Instructions Recorded Confirmed Last Taken Type albuterol sulfate 90 mcg/actuation 2 puff PO Q4-6H PRN dyspnea 02/23/22 02/01/23 Unknown History aerosol inhaler (ProAir HFA) Exam Height,Weight and Vital Signs: Height 5 ft 5 in Weight 80.739 kg Vital Signs Temp Pulse Resp BP Pulse Ox O2 Del Method 02/01/23 13:32 98.5 F 65 16 118/73 96 Room Air Airway Mallampati Class: II TM Dist: >3cm Neck ROM: Full Loose/Missing/Broken Teeth: No Heart: RRR Lungs: CTAB Assessment and Plan Assessment Anesthesia Assessment: Anesthesia Plan Discussed Final Anesthetic Review NPO: Yes ASA Class: III Final Preanesthetic Review: No Changes in Pt Med Stat, Meds/Allgs Chart Reviewed, Consent Obtained/Reviewed and Anes Risks/Benef Reviewed Patient Risk: Intermediate Procedure Risk: Low Assessment/Block/Sedation in SS: Assess/Block/Sedation-SS Anesthetic Plan Anesthetic Plan: MAC: Disposition: Standard PACU
[2023-02-01 13:15] VITALS: BMI 29.6
[2023-02-01 13:32] VITALS: BP 118/73; PULSE 65; RESP 16; TEMP 36.9; O2SAT 96
[2023-02-01] MEDS: Lactated Ringers 1,000 ML 100 ML IVCONT (13:33)
--- NOTE | 2023-02-01 15:36 | MHC.SHP ---
Pre-Procedural Eval Section A Date of Service: 02/01/23 The patient is an INPATIENT: No Changes since office visit: Yes Patient answered all questions; No Cold of Flu in the past 2 weeks, No New Medical Problems and No Changes in Medication The History & Physical has been completed within 30 days and I have reviewed it.: Yes Section B Chief Complaint: Ulcer of esophagus without bleeding,dysphagia, Allergies: Allergies Allergy/AdvReac Type Severity Reaction Status Date / Time No Known Allergies Allergy Verified 10/20/22 10:31 Plan I have reviewed the history and physical and performed a pertinent physical examination on my patient. No changes have occurred unless specified. Time Spent With Patient Time: Total time managing care of this patient today ____ minutes.
--- NOTE | 2023-02-01 15:36 | W.PM.OPN ---
Operative Note Operative Note Date of Service: 02/01/23 Narrative: FLEXIBLE TRANSORAL UPPER GASTROINTESTINAL ENDOSCOPY WITH BIOPSIES Pre-op diagnosis: GERD, nausea, epigastric pain Post-op diagnosis: GERD, hiatal hernia, gastritis Endoscopist:? Jules Arias MD Anesthesia:?MAC Consent: Indications for the procedure and potential complications of bleeding, perforation, reaction to medications and missed diagnosis were discussed with the patient and informed consent was obtained. Instrument: Olympus GIF H 190 mid size upper endoscope Monitoring: Vital signs and clinical assessment, continuous EKG monitoring, Pulse oximetry, Carbon Dioxide monitoring and blood pressure monitoring were done throughout the procedure. Procedure: The patient was placed in the left lateral decubitis position and pre-procedure medications were administered and a bite block was placed. The endoscope was inserted into the mouth and advanced under direct vision to the third part of duodenum. A careful inspection was made as the upper endoscope was withdrawn including a retroflexed examination of the proximal stomach; Findings and interventions are described below. Findings: Larynx: Normal Esophagus: GE junction at 36 cms, small hiatal hernia 36 to 38 cms. Grade 4 esophagitis 32 to 36 cms with edema, erythema and ulcers covered with whote exudate with circunferential involvement of the esophagus. Stomach: Prominent gastric folds in the gastric body - biopsied. Mild gastric erythema. Biopsies were obtained. Grade 3 flap valve on retroflexed examination of the cardia. Duodenum: Normal bulb and descending duodenum. Biopsies were obtained from 3rd part of the duodenum to check for celiac sprue Intervention: Biopsies as noted above Impression and Post Procedure Diagnosis: Endoscopy Findings: ESOPHAGUS: Small hiatal hernia with erosive esophagitis (LA grade D) STOMACH: Gastritis, prominent gastric folds DUODENUM: Normal - biopsied to check for celiac sprue and for fu of past duodenal biopsies Plan: Await pathology results Repeat EGD in 3-4 months to confirm esophagitis has healed (after ensuring pt is compliant with pantoprazole BID) Patient has an appointment on 02/17/23 in the GI Clinic with Silvia Overton NP. Above findings were reviewed with the patient and GERD and Hiatal hernia handouts were given in the discharge area
[2023-02-01 16:07] VITALS: BP 102/54; PULSE 63; RESP 15; TEMP 36.4; O2SAT 98
[2023-02-01 16:23] VITALS: BP 118/67; PULSE 61; RESP 18; TEMP 36.6; O2SAT 96
== END 2023-02-01 16:49 | disposition home or self-care (01) ==
PROVIDERS: PCP Family Medicine; Visit Provider Internal Medicine Gastroenterology
PROC: 0DJ08ZZ Inspection of Upper Intestinal Tract, Via Natural or Artificial Opening Endoscopic (ICD-10-PCS; CPT 43235; principal; 2023-02-01 14:30)
DX: K21.9 Gastro-esophageal reflux disease without esophagitis (principal); K29.70 Gastritis, unspecified, without bleeding; K44.9 Diaphragmatic hernia without obstruction or gangrene; K22.10 Ulcer of esophagus without bleeding; R13.10 Dysphagia, unspecified; K59.00 Constipation, unspecified; Z79.899 Other long term (current) drug therapy
CPT/HCPCS: 43239; 88305; 88342

== ENCOUNTER → 2023-02-01 12:14 | Outpatient (BNV) | payer MEDICAID, SELFPAY | PROVIDERS: PCP Family Medicine; Visit Provider Internal Medicine Gastroenterology | DX: K21.9 Gastro-esophageal reflux disease without esophagitis (principal) | CPT/HCPCS: 43239 ==

== ENCOUNTER 2023-02-17 10:16 | Outpatient (AMB) | payer MEDICAID, SELFPAY ==
--- NOTE | 2023-02-17 10:21 | MHC.OFFVIS ---
Intake Vital Signs 02/17/23 10:28 Height 5 ft 5 in Weight 175 lb 0.752 oz BMI 29.1 BP 120/58 L Blood Pressure Location Lt brachial Position Sitting Pulse 69 Intake Visit Reasons: Follow up EGD Intake Note: Patient presents to in office visit today in EGD follow up. Patient underwent EGD on 02/01/[address] Arias. CC: Patient reports he continues to have abdominal pain. Denies having any GI symptoms today. Tie In Hand Required: No Accompanied by: Daughter Allergies No Known Allergies Allergy (Verified 02/17/23 10:34) HPI Follow up EGD HPI Details Assessment & Plan (1) Erosive esophagitis: ?Code(s): K22.10 - Ulcer of esophagus without bleeding ?Plan: Faroese # andrea, LIve He is doing better with with the pantoprazole bid, but the problem is not completely resolved. However, the nausea is better and the nocturnal acid brash is also improved.? At this point I think we just need more time and will also await the endoscopy results.? He is happy that release making some progress. The prune juice is not working for [facility], has used MOM in past, will start senna as he prefers pill.? Likely restoring better bowel motility will also help improve the acid reflux. ROV 6 week.s (2) Dysphagia: ?Code(s): R13.10 - Dysphagia, unspecified (3) Constipation: ?Code(s): K59.00 - Constipation, unspecified ? ? ? Medications: New sennosides (Senna Laxative) 17.2 mg (2 x 8.6 m g) PO BEDTIME 60? EGD 02/02/23 Findings: Larynx:? Normal Esophagus: GE junction at 36 cms, small hiatal hernia 36 to 38 cms. Grade 4 esophagitis 32 to 36 cms with edema, erythema and ulcers covered with whote exudate with circunferential involvement of the esophagus. Stomach: Prominent gastric folds in the gastric body - biopsied. Mild gastric erythema. Biopsies were obtained. Grade 3 flap valve on retroflexed examination of the cardia. Duodenum: Normal bulb and descending duodenum. Biopsies were obtained from 3rd part of the duodenum to check for celiac sprue Intervention: Biopsies as noted above Impression and Post Procedure Diagnosis: Endoscopy Findings: ESOPHAGUS: Small hiatal hernia with erosive esophagitis (LA grade D) STOMACH: Gastritis, prominent gastric folds DUODENUM: Normal - biopsied to check for celiac sprue and for fu of past duodenal biopsies Plan: Await pathology results Repeat EGD in 3-4 months to confirm esophagitis has healed (after ensuring pt is compliant with pantoprazole BID) Patient has an appointment on 02/17/23 in the GI Clinic with? Silvia Overton NP. BIOPSY Received: 02/02/23 Diagnosis A.? Small bowel, biopsy:? Duodenal/small bowel mucosa with preserved villi and no specific change; no evidence of celiac disease. B.? Gastric antrum, biopsy:? Gastric antral mucosa with congestion, mild reactive changes, and minimal chronic inactive gastritis; negative for H pylori, intestinal metaplasia and dysplasia. C.? Gastric folds, biopsy:? Gastric body mucosa with congestion and minimal chronic inactive gastritis; negative for H pylori, intestinal metaplasia and dysplasia.? TODAY'S VISIT Faroese #declines He is here today with a young female child assume to be his daughter. She shows me all of the lips stick in the contents of her little pocket book! His nausea has continued to improved since he started the pantoprazole but has not yet completely resolved. Since he still had quite a bit of erosive gastritis but biopsies seem to be negative for active inflammation I think he is in a process of healing adult take little more time. He is agreeable to waiting this out and continuing on the medication. The endoscopy this wants to evaluate him again in 3 or 4 months so I sent a note to the schedulers to get this done. He is aware and agreeable to the repeat EGD. He received the senna any feels like this is working well to control his constipation. I will see him at this point after the endoscopy. FORMERLY [facility], [facility] Medical History Abdominal distension, gaseous Abnormal CT of the abdomen Acute renal failure Asthma Depression Dyspepsia GERD (gastroesophageal reflux disease) History of diverticulitis Thalassemia Umbilical hernia Surgical History H/O esophagogastroduodenoscopy H/O inguinal hernia repair S/P ORIF (open reduction internal fixation) fracture Social History Are you a primary personal care assistant to a significant other at home: No Do you presently have visiting nurse or other home services: No Alcohol intake: never Patient Tobacco Use Status: Never used Tobacco Second Hand Smoke Exposure: No Review of Systems Const Denies fatigue, Denies fever(s), Denies night sweats, Denies poor appetite and Denies weight loss ENT Reports Normal hearing present, Denies dental pain, Denies dysphagia, Denies hearing loss, Denies mouth pain, Denies odynophagia, Denies throat swelling, Denies tongue swelling and Reports other (Dentition adequate) Card Reports no additional complaints Resp Reports no additional complaints GI Reports abdominal pain, Denies melena, Denies bloating, Denies hematochezia, Reports constipation, Denies GI cramping, Denies dysphagia, Denies excessive flatus, Denies early satiety, Denies heartburn, Denies diarrhea, Reports nausea, Denies odynophagia, Denies vomiting and Denies hematemesis Skin/Breast Denies pruritus, Denies lesions, Denies rash and Denies jaundice Neuro Reports Normal hearing present and Denies Abnormal speech present Endo Denies fatigue Aller/Immun Denies throat swelling and Denies tongue swelling Physical Exam Vital Signs: Last Vital Signs Pulse 69 02/17/23 10:28 BP 120/58 L 02/17/23 10:28 BMI result Body Mass Index 29.1 Const General: cooperative, no acute distress, well developed and well groomed Nutritional Appearance: average body habitus and well nourished Orientation/consciousness: oriented to person, oriented to place and oriented to time Limitations: language barrier HEENT Head: Yes normocephalic and Yes atraumatic Eyes General: appearance normal, both eyes and all related structures Pupils: Equal, round and reactive pupils present Neck Neck: Yes normal visual inspection and Yes no lymphadenopathy Thyroid: Thyroid normal Resp Effort & Inspection: normal respiratory effort and able to speak in complete sentences Auscultation: clear to auscultation bilaterally Cardio Rate: regular rate Rhythm: regular rhythm Heart sounds: Normal, physiologic split S2 sound present Peripheral pulses: radial pulses present and posterior tibial pulses present GI Inspection: No distended and No Abdominal panniculus present Palpation (GI): Soft to palpation, nontender, no guarding, not rigid and No hepatosplenomegaly present Percussion: Yes normal to percussion Auscultation: normal bowel sounds Rectal Exam - Male: Yes deferred Skin General skin exam: no rashes or lesions noted, turgor normal, skin not dry, no jaundice, No spider nevi and no striae Rashes: no rashes Nails: normal Neuro General: oriented to person, oriented to place and oriented to time Cranial nerves: Yes Equal, round and reactive pupils present and Yes Normal hearing present Speech: No Abnormal speech present Extrem General: Yes normal to inspection, No clubbing, No cyanosis and No edema Psych Appearance: grossly normal and well kempt Mental Status: mental status grossly normal Speech and movement: Normal speech and movement present Affect: normal affect Attitude: cooperative Thought process: Normal thought process present and not confabulating Thought content: Normal thought content present Insight: Limited insight present (Psych) Judgement: Limited judgement present (Psych) Results Reviewed Results Reviewed: EGD 02/02/23 Findings: Larynx:? Normal Esophagus: GE junction at 36 cms, small hiatal hernia 36 to 38 cms. Grade 4 esophagitis 32 to 36 cms with edema, erythema and ulcers covered with whote exudate with circunferential involvement of the esophagus. Stomach: Prominent gastric folds in the gastric body - biopsied. Mild gastric erythema. Biopsies were obtained. Grade 3 flap valve on retroflexed examination of the cardia. Duodenum: Normal bulb and descending duodenum. Biopsies were obtained from 3rd part of the duodenum to check for celiac sprue Intervention: Biopsies as noted above Impression and Post Procedure Diagnosis: Endoscopy Findings: ESOPHAGUS: Small hiatal hernia with erosive esophagitis (LA grade D) STOMACH: Gastritis, prominent gastric folds DUODENUM: Normal - biopsied to check for celiac sprue and for fu of past duodenal biopsies Plan: Await pathology results Repeat EGD in 3-4 months to confirm esophagitis has healed (after ensuring pt is compliant with pantoprazole BID) Patient has an appointment on 02/17/23 in the GI Clinic with? Silvia Overton NP. BIOPSY Received: 02/02/23 Diagnosis A.? Small bowel, biopsy:? Duodenal/small bowel mucosa with preserved villi and no specific change; no evidence of celiac disease. B.? Gastric antrum, biopsy:? Gastric antral mucosa with congestion, mild reactive changes, and minimal chronic inactive gastritis; negative for H pylori, intestinal metaplasia and dysplasia. C.? Gastric folds, biopsy:? Gastric body mucosa with congestion and minimal chronic inactive gastritis; negative for H pylori, intestinal metaplasia and dysplasia. Assessment & Plan Assessment & Plan (1) Erosive esophagitis: Code(s): K22.10 - Ulcer of esophagus without bleeding Plan: Faroese #declines He is here today with a young female child assume to be his daughter. She shows me all of the lips stick in the contents of her little pocket book! His nausea has continued to improved since he started the pantoprazole but has not yet completely resolved. Since he still had quite a bit of erosive gastritis but biopsies seem to be negative for active inflammation I think he is in a process of healing adult take little more time. He is agreeable to waiting this out and continuing on the medication. The endoscopy this wants to evaluate him again in 3 or 4 months so I sent a note to the schedulers to get this done. He is aware and agreeable to the repeat EGD. He received the senna any feels like this is working well to control his constipation. I will see him at this point after the endoscopy. (2) Constipation: Code(s): K59.00 - Constipation, unspecified (3) Dysphagia: Code(s): R13.10 - Dysphagia, unspecified Coding Level of Care Code Est Pt Level 4 (15976) Diagnoses Erosive esophagitis K22.10 Constipation K59.00 Dysphagia R13.10
[2023-02-17 10:28] VITALS: BP 120/58; PULSE 69; BMI 29.1
== END 2023-02-17 11:50 | disposition home or self-care (01) ==
PROVIDERS: PCP Family Medicine; Visit Provider Nurse Practitioner
DX: K22.10 Ulcer of esophagus without bleeding (principal); K59.00 Constipation, unspecified; R13.10 Dysphagia, unspecified
CPT/HCPCS: 99214

== ENCOUNTER → 2023-02-17 10:16 | Outpatient (BNVA) | payer MEDICAID, SELFPAY | PROVIDERS: PCP Family Medicine; Visit Provider Nurse Practitioner | DX: K22.10 Ulcer of esophagus without bleeding (principal); K59.00 Constipation, unspecified; R13.10 Dysphagia, unspecified | CPT/HCPCS: 99214 ==

== ENCOUNTER 2023-05-06 11:24 | Outpatient (REF) | payer MEDICAID, SELFPAY ==
[2023-05-06 12:46] LABS: Alanine Aminotransferase 27 U/L (0-40); Albumin Level 4.1 g/dL (3.5-5.0); Alkaline Phosphatase 63 U/L (39-117); Anion Gap 12 (12-20); Aspartate Amino Transferase 23 U/L (5-37); Bilirubin Total 0.9 mg/dL (0.0-1.0); Blood Urea Nitrogen 12 mg/dL (9-16); Calcium 9.8 mg/dL (8.4-10.2); Carbon Dioxide 27 mmol/L (22-29); Chloride 104 mmol/L (96-108); Estimated Glomerular Filt Rate > 60; Glucose Random 95 mg/dL (60-115); Potassium 3.8 mmol/L (3.3-5.1); Sodium 139 mmol/L (135-145); Total Protein 7.4 g/dL (6.5-8.0)
[2023-05-06 12:48] LABS: Cholesterol 150 mg/dL (<200); HDL Cholesterol 30 mg/dL (>40); LDL Cholesterol Calculated 99 mg/dL (<100); Triglycerides 108 mg/dL (<150)
[2023-05-06 13:48] LABS: Reflex LDLD? No
== END 2023-05-06 11:25 | disposition home or self-care (01) ==
LOC: HO.LAB 11:24
PROVIDERS: PCP Family Medicine; Visit Provider Family Medicine
DX: R73.03 Prediabetes (principal); R03.0 Elevated blood-pressure reading, without diagnosis of hypertension
CPT/HCPCS: 36415; 80053; 80061

== ENCOUNTER 2023-05-20 09:24 | Day surgery (SDC) | payer MEDICAID, SELFPAY ==
[2023-05-18 14:16] VITALS: BMI 29.1
--- NOTE | 2023-05-19 11:56 | HO.ANESPROP2 ---
Documented by User: Shira Burgos NP 05/19/23 11:58 HPI - Anesthesia Eval Consult details Narrative: 47yo M for Upper Endoscopy s/p same 01/2023 with T[facility]A PMFSH Active Problems Active Problems: All Active Problems (Updated 01/06/23 @ 11:15 by DELORES Lewis) Constipation (Acute) Dysphagia (Acute) Erosive esophagitis (Acute) Dermatofibroma of back (Acute) H/O colonoscopy (Acute) Pre-op examination (Acute) Erectile dysfunction (Acute) Past Medical History Medical History Acute renal failure Depression Thalassemia Asthma Umbilical hernia History of diverticulitis Dyspepsia Abdominal distension, gaseous GERD (gastroesophageal reflux disease) Abnormal CT of the abdomen Family History Family history of problems with anesthesia: No Surgical History Surgical History Hx of colonoscopy H/O inguinal hernia repair S/P ORIF (open reduction internal fixation) fracture H/O esophagogastroduodenoscopy History of Problems with Anesthesia: No Social History Social History Are you a primary transition of care specialist to a significant other at home: No Do you presently have visiting nurse or other home services: No Alcohol intake: never Patient Tobacco Use Status: Never used Tobacco Second Hand Smoke Exposure: No Use of substances other than those prescribed or required for medical reasons: No Are you DNR?: No Advance Directives: No Advance Directives Information Provided: Yes Meds Allergies Allergy/AdvReac Type Severity Reaction Status Date / Time No Known Allergies Allergy Verified 02/17/23 10:34 Home Medications Medication Instructions Recorded Confirmed Last Taken Type albuterol sulfate 90 mcg/actuation 2 puff PO Q4-6H PRN dyspnea 02/23/22 02/01/23 Unknown History aerosol inhaler (ProAir HFA) Exam Exam Date and Time: May 19, 2023 1156 Height,Weight and Vital Signs: Height 5 ft 5 in Weight 79.379 kg Pertinent Lab Results Pertinent Lab Results: Laboratory Tests 12/17/22 05/06/23 09:52 11:37 WBC 4.9 Hgb 14.0 Hct 47.7 Plt Count 241 Sodium 139 Potassium 3.8 Chloride 104 Carbon Dioxide 27 BUN 12 Creatinine 0.94 Assessment and Plan Assessment Anesthesia Assessment: Chart Reviewed Final Anesthetic Review Family History of Problems with Anesthesia: No History of Problems with Anesthesia: No Documented by User: Vicki Kim MD 05/20/23 11:41 PMF Past Medical History Medical History Acute renal failure Depression Thalassemia Asthma Umbilical hernia History of diverticulitis Dyspepsia Abdominal distension, gaseous GERD (gastroesophageal reflux disease) Abnormal CT of the abdomen Surgical History Surgical History Hx of colonoscopy H/O inguinal hernia repair S/P ORIF (open reduction internal fixation) fracture H/O esophagogastroduodenoscopy Social History Social History Are you a primary transition of care specialist to a significant other at home: No Do you presently have visiting nurse or other home services: No Alcohol intake: never Patient Tobacco Use Status: Never used Tobacco Second Hand Smoke Exposure: No Use of substances other than those prescribed or required for medical reasons: No Are you DNR?: No Advance Directives: No Advance Directives Information Provided: Yes Meds Allergies Allergy/AdvReac Type Severity Reaction Status Date / Time No Known Allergies Allergy Verified 02/17/23 10:34 Home Medications Medication Instructions Recorded Confirmed Last Taken Type albuterol sulfate 90 mcg/actuation 2 puff PO Q4-6H PRN dyspnea 02/23/22 02/01/23 Unknown History aerosol inhaler (ProAir HFA) Exam Airway Mallampati Class: II TM Dist: >3cm Neck ROM: Full Loose/Missing/Broken Teeth: No Heart: RRR Lungs: CTA Assessment and Plan Assessment Anesthesia Assessment: Anesthesia Plan Discussed Final Anesthetic Review NPO: Yes ASA Class: II Final Preanesthetic Review: Meds/Allgs Chart Reviewed, Consent Obtained/Reviewed and Anes Risks/Benef Reviewed Patient Risk: Low Procedure Risk: Intermediate Anesthetic Plan Anesthetic Plan: MAC: Disposition: Standard PACU
[2023-05-20 11:16] VITALS: BP 127/87; PULSE 71; RESP 16; TEMP 36.4; O2SAT 99
[2023-05-20] MEDS: Lactated Ringers 1,000 ML 100 ML IVCONT (11:26)
--- NOTE | 2023-05-20 12:10 | MHC.SHP ---
Pre-Procedural Eval Section A Date of Service: 05/20/23 The patient is an INPATIENT: No The History & Physical has been completed within 30 days and I have reviewed it.: No Section B Chief Complaint: fu of erosive esophagitis Relevant Family History (Specify if Yes): No Relevant Social History: None Present Medications: see Short Stay Collaborative assessment Medical History: Significant History (Abnormal CT of the abdomen Acute renal failure Asthma Depression Dyspepsia GERD (gastroesophageal reflux disease) History of diverticulitis Thalassemia Umbilical hernia) History of Previous Operations: Relevant previous surgery/procedure and date(s) (H/O esophagogastroduodenoscopy H/O inguinal hernia repair S/P ORIF (open reduction internal fixation) fracture) Allergies: Allergies Allergy/AdvReac Type Severity Reaction Status Date / Time No Known Allergies Allergy Verified 02/17/23 10:34 Review of Systems Sugical H&P ROS: Negative: Constitution, Cardiovascular, Respiratory and Gastrointestinal Exam Surgical H&P Exam: Normal: Heart, Normal: Lungs, Normal: Extremities and Normal: Abdomen Plan Diagnosis/Plan: Unchanged I have reviewed the history and physical and performed a pertinent physical examination on my patient. No changes have occurred unless specified. Time Spent With Patient Time: Total time managing care of this patient today ____ minutes.
--- NOTE | 2023-05-20 13:14 | W.PM.OPN ---
Operative Note Operative Note Date of Service: 05/20/23 Narrative: FLEXIBLE TRANSORAL UPPER GASTROINTESTINAL ENDOSCOPY WITH BIOPSIES Pre-op diagnosis: FU of erosive esophagitis Post-op diagnosis: erosive esophagitis, hiatal hernia, gastritis, small duodenal ulcer Endoscopist:? Jules Arias MD Anesthesia:?MAC Consent: Indications for the procedure and potential complications of bleeding, perforation, reaction to medications and missed diagnosis were discussed with the patient and informed consent was obtained. Instrument: Olympus GIF H 190 mid size upper endoscope Monitoring: Vital signs and clinical assessment, continuous EKG monitoring, Pulse oximetry, Carbon Dioxide monitoring and blood pressure monitoring were done throughout the procedure. Procedure: The patient was placed in the left lateral decubitis position and pre-procedure medications were administered and a bite block was placed. The endoscope was inserted into the mouth and advanced under direct vision to the third part of duodenum. A careful inspection was made as the upper endoscope was withdrawn including a retroflexed examination of the proximal stomach; Findings and interventions are described below. Findings: Larynx: Normal Esophagus: GE junction at 36 cms, small hiatal hernia 36 to 38 cms. LA Grade C esophagitis 32 to 36 cms with edema, erythema and ulcers covered with circumferential involvement of the esophagus (improved from LA Grade D on last EGD). Edematous folds at GE junction - biopsied. Stomach: Mild gastric erythema. Biopsies were obtained. Grade 3 flap valve on retroflexed examination of the cardia. Duodenum: A 5-6 mm ulcer in the bulb - biopsied and normal descending duodenum. Intervention: Biopsies as noted above Impression and Post Procedure Diagnosis: Endoscopy Findings: ESOPHAGUS: small hiatal hernia 36 to 38 cms. LA Grade C esophagitis 32 to 36 cms with edema, erythema and ulcers covered with circunferential involvement of the esophagus (improved from LA Grade D on last EGD). Edematous folds at GE junction - biopsied. STOMACH: Gastritis DUODENUM: A 5-6 mm ulcer in the bulb - biopsied Plan: Await pathology results Patient to schedule a FU appointment in the GI Clinic with Silvia Overton NP to discuss biopsy results. Above findings were reviewed with the patient and GERD and PUD handouts were given in the discharge area Patient has persistent esophagitis, need to ensure he takes his PPI twice daily and avoids NSAIDS if possible. Repeat EGD in 6 months - if no improvement, he may need Lap fundoplication. BIOPSIES SHOWED: A. Duodenum, ulcer, biopsy: Active peptic/non-specific duodenitis with erosion. B. Gastric antrum, biopsy: Gastric antral mucosa with mild reactive changes, ectatic vessels, and minimal chronic inactive gastritis; negative for H pylori, intestinal metaplasia and dysplasia. C. Esophagus, distal, biopsy: Squamous mucosa with spongiosis and intraepithelial neutrophils and eosinophils (up to 4 per high-power field) consistent with esophagitis and columnar mucosa with hyperplasia and moderate chronic active inflammation; negative for intestinal metaplasia and dysplasia.
[2023-05-20 13:15] VITALS: BP 102/57; PULSE 72; RESP 16; TEMP 36.1; O2SAT 93
[2023-05-20 13:30] VITALS: BP 118/73; PULSE 61; RESP 14; O2SAT 96
[2023-05-20 13:45] VITALS: BP 120/89; PULSE 69; RESP 16; TEMP 36.2; O2SAT 98
== END 2023-05-20 14:11 | disposition home or self-care (01) ==
PROVIDERS: PCP Family Medicine; Visit Provider Internal Medicine Gastroenterology
PROC: 0DJ08ZZ Inspection of Upper Intestinal Tract, Via Natural or Artificial Opening Endoscopic (ICD-10-PCS; CPT 43235; principal; 2023-05-20 11:40)
DX: K22.10 Ulcer of esophagus without bleeding (principal); R13.10 Dysphagia, unspecified; K26.9 Duodenal ulcer, unspecified as acute or chronic, without hemorrhage or perforation; K29.50 Unspecified chronic gastritis without bleeding; K44.9 Diaphragmatic hernia without obstruction or gangrene; K21.9 Gastro-esophageal reflux disease without esophagitis; K42.9 Umbilical hernia without obstruction or gangrene; Z87.19 Personal history of other diseases of the digestive system; D56.9 Thalassemia, unspecified; J45.909 Unspecified asthma, uncomplicated; F32.A Depression, unspecified; Z79.899 Other long term (current) drug therapy
CPT/HCPCS: 43239; 88305; 88342

== ENCOUNTER → 2023-05-20 09:24 | Outpatient (BNV) | payer MEDICAID, SELFPAY | PROVIDERS: PCP Family Medicine; Visit Provider Internal Medicine Gastroenterology | DX: K20.90 Esophagitis, unspecified without bleeding (principal); K29.70 Gastritis, unspecified, without bleeding; K26.9 Duodenal ulcer, unspecified as acute or chronic, without hemorrhage or perforation | CPT/HCPCS: 99499 ==

== ENCOUNTER 2023-08-16 21:03 | Emergency (ER) | payer MEDICAID, SELFPAY ==
--- NOTE | 2023-08-16 | ECG_ITS ---
Test Reason : COUGH/CP Blood Pressure : / mmHG Vent. Rate : 072 BPM Atrial Rate : 072 BPM P-R Int : 144 ms QRS Dur : 090 ms QT Int : 386 ms P-R-T Axes : 044 022 037 degrees QTc Int : 422 ms Normal sinus rhythm Normal ECG When compared with ECG of 25-AUG-2019 21:34, No significant change was found Referred By: Generic ED Physician Electronically Signed By:MADHAV PAEZ MD
--- NOTE | ~2023-08-16 | XR_ITS ---
EXAMINATION: XR CHEST CLINICAL INFORMATION: Shortness of breath. COMPARISON: Prior chest radiographs, most recently 08/25/2019. TECHNIQUE: Frontal view of the chest was obtained. FINDINGS: No significant abnormality is noted involving the heart, lungs, mediastinum, bony thorax or soft tissues. XR/XR chest 1V IMPRESSION: Unremarkable examination.
[2023-08-16 21:07] VITALS: BP 135/92; PULSE 80; RESP 19; TEMP 36.8; O2SAT 97; BMI 29.7
--- NOTE | 2023-08-16 21:22 | MHC.EDTECH ---
Patient brought into triage area,EKG taken per order and signed by provider,covid,and flu swabs obtained and sent to lab.
[2023-08-16 21:46] LABS: IDNOW Serial# 6674DD1D
[2023-08-16 21:47] LABS: COVID-19 Test Negative (Negative)
[2023-08-16 21:58] LABS: IDNOW Serial# 58CA691E; Influenza A Negative (Negative); Influenza B2 Negative (Negative)
--- NOTE | 2023-08-16 22:22 | ED_ITS ---
HPI - URI/Sore Throat General Chief Complaint: Upper Respiratory Symptoms Stated Complaint: Cough Time Seen by Provider: 08/16/23 22:22 Source: patient and old records reviewed Mode of arrival: ambulatory Limitations: no limitations History of Present Illness HPI Narrative: 47 yo male with PMH of GERD, dysphagia, asthma, erosive esophagitis here with c/o cough for 4 days, hoarse voice not feeling better and his chest hurts when he coughs no travel no sick contacts not a smoker uses his rescue inhaler PRN MD elicited complaint: cough and sore throat Pertinent past history: asthma Onset (ago): day(s) (4) Consistency: intermittent Severity: moderate Description of mucous: clear Able to tolerate fluids by mouth: Yes Exacerbating factors: swallowing and other (coughing) Relieving factors: nothing Associated symptoms: voice changes, sore throat and cough Treatments prior to arrival: cold medicine Related Data Home Medications Medication Instructions Recorded Confirmed albuterol sulfate 90 mcg/actuation 2 puff PO Q4-6H PRN dyspnea 02/23/22 02/01/23 aerosol inhaler (ProAir HFA) Previous Rx's Medication Instructions Recorded naproxen 500 mg tablet (Naprosyn) 500 mg PO BID PRN pain #20 tabs 12/07/22 pantoprazole 40 mg tablet,delayed 40 mg PO BID 30 days #60 tabs 12/16/22 release (Protonix) sennosides 8.6 mg tablet (Senna 17.2 mg (2 x 8.6 mg) PO BEDTIME 01/06/23 Laxative) #60 tabs amoxicillin 875 mg-potassium 1 tab PO BID #13 tabs 08/16/23 clavulanate 125 mg tablet prednisone 20 mg tablet 40 mg (2 x 20 mg) PO DAILY 4 days 08/16/23 #8 tabs Allergies Allergy/AdvReac Type Severity Reaction Status Date / Time No Known Allergies Allergy Verified 02/17/23 10:34 Review of Systems Review of Systems: Constitutional : No Fever, No Chills ENT/Mouth : pos Hoarseness, No sore throat, No Rhinorrhea Eyes: No Redness, No Discharge, No Vision Changes Cardiovascular : No Chest Pain, positive SOB, positive Dyspnea on Exertion, No Edema Respiratory : positive Cough, No Sputum, positive Wheezing, Gastrointestinal : No Nausea, No Vomiting, No Diarrhea, No abdominal Pain Genitourinary : No Dysuria, No Hematuria Musculoskeletal : No joint pain, No Myalgias Skin : No rash Neuro : No Weakness, No Numbness, No Headache Psych : No anxiety, depression All other systems reviewed and are negative [facility] Past Medical History Attestation statement: The following information was validated with the patient. Source: old records reviewed Medical History Acute renal failure Depression Thalassemia Asthma Umbilical hernia History of diverticulitis Dyspepsia Abdominal distension, gaseous GERD (gastroesophageal reflux disease) Abnormal CT of the abdomen Surgical History Hx of colonoscopy H/O inguinal hernia repair S/P ORIF (open reduction internal fixation) fracture H/O esophagogastroduodenoscopy Social History Social History Are you a primary health care technician to a significant other at home: No Do you presently have visiting nurse or other home services: No Alcohol intake: never Patient Tobacco Use Status: Never used Tobacco Second Hand Smoke Exposure: No Advance Directives: No Advance Directives Information Provided: No Physical Exam Vital Signs: Vital Signs: Last Vital Signs Temp 98.3 F 08/16/23 21:07 Pulse 80 08/16/23 21:07 Resp 19 08/16/23 21:07 BP 135/92 H 08/16/23 21:07 Pulse Ox 97 08/16/23 21:07 O2 Del Method Room Air 08/16/23 21:07 BMI result Body Mass Index 29.7 Appearance: Alert. Oriented X3. No acute distress. Eyes: Pupils equal, round and reactive to light. ENT: Pharynx normal. no exudates, mild erythema, uvula midline Neck: Normal inspection. Neck supple. CVS: Normal heart rate and rhythm. Pulses normal. Respiratory: No respiratory distress. Breath sounds normal. no wheezes Abdomen: Soft and nontender. Skin: Skin warm and dry. Normal skin color. Normal skin turgor. Extremities: No lower extremity edema. No calf ttp Neuro: Oriented X 3. No motor deficit. No sensory deficit. Medical Decision Making Medical Decision Making MDM Narrative: 47 yo male with PMH of GERD, dysphagia, asthma, erosive esophagitis here with c/o URI symptoms and cough with chest pain that is reproduceable for 4 days at this time PERC negative it is atypical for ACS it is URI related - EKG nonischemic will obtain viral panel and CXR - likely bronchitis will send home with augmentin and prednisone encourage him to use his PPI while on prednisone. No hypoxia Differential Diagnosis Differential Diagnoses: The differential diagnosis associated with the presentation includes bronchitis, viral syndrome, pneumonia Admission/Observation Consideration of admission/observation: Escalation of care including admission/observation considered no hypoxia stable for DC Lab Data MDM Lab Attestation statement: I reviewed the patient's lab results. Labs: Lab Results 08/16/23 08/16/23 Range/Units 21:21 21:23 COVID-19 ([facility]) Negative (Negative) COVID-19 Clin Com See Note Influenza Type A ([facility]) Negative (Negative) Influenza Type B ([facility]) Negative (Negative) Influenza A & B Note See Note Independent Interpretation I performed an independent interpretation of an: EKG and Plain X-Ray (normal ) Interpretation: Rate: 72 Rhythm: NSR [place]: normal Normal P waves. Normal CHARO. Normal QRS complex. ST T wave : normal no ORQUIDEA qTC: 422 prior studies: no acute ischemia The study has been interpreted contemporaneously by me. . Radiology Impression Discussion of test interpretation with radiology: I have reviewed the radiologist's reading. External Record Review External record reviewed: Office record Prescription Management I considered prescription management with: Antibiotic and Other Discharge Plan Discharge Clinical Impression: Bronchitis Patient Disposition: Home, Self-Care Instructions: Acute Bronchitis (ED) Additional Instructions: normal EKG, chest xray and negative swabs. please take your GERD medications while on steroids and antibiotics. continue to use robitussin and your inhalers. return for worsening symptoms, pain, fevers, difficulty breathing or any other concerns. On amoxicillin-clavulanate, softer bowel movements are to be expected. Call your provider if you move your bowels more than 4 times a day, your bowel movements are almost all liquid, or you get a rash.? Prescriptions: New prednisone 20 mg tablet 40 mg PO DAILY 4 Days Qty: 8 0RF amoxicillin-pot clavulanate 875-125 mg tablet 1 tab PO BID Qty: 13 0RF No Action naproxen [Naprosyn] 500 mg tablet 500 mg PO BID PRN (Reason: pain) Qty: 20 0RF albuterol sulfate [ProAir HFA] 90 mcg/actuation HFA aerosol inhaler 2 puff PO Q4-6H PRN (Reason: dyspnea) pantoprazole [Protonix] 40 mg tablet,delayed release (DR/EC) 40 mg PO BID 30 Days Qty: 60 3RF sennosides [Senna Laxative] 8.6 mg tablet 17.2 mg PO BEDTIME Qty: 60 6RF Stand Alone Forms: Work/School Release
[2023-08-16] MEDS: Amoxicillin/Potassium Clav 875 MG TABLET PO (22:59)
[2023-08-16] MEDS: predniSONE 20 MG TABLET 40 MG PO (23:00)
== END 2023-08-16 23:06 | disposition home or self-care (01) ==
PROVIDERS: Emergency Provider Emergency Medicine; PCP Family Medicine
DX: J40 Bronchitis, not specified as acute or chronic (principal); R07.89 Other chest pain; R13.10 Dysphagia, unspecified; R05.9 Cough, unspecified; Z11.52 Encounter for screening for COVID-19
CPT/HCPCS: 71045; 87502; 87635; 93005; 99283

== ENCOUNTER → 2023-08-16 21:18 | Outpatient (BNV) | payer MEDICAID, SELFPAY | PROVIDERS: Emergency Provider Emergency Medicine; PCP Family Medicine; Visit Provider Internal Medicine Cardiovascular Disease | DX: R07.9 Chest pain, unspecified (principal) | CPT/HCPCS: 93010 ==

== ENCOUNTER 2023-11-07 11:37 | Outpatient (REF) | payer MEDICAID, SELFPAY ==
[2023-11-07 14:03] LABS: Estimated Average Glucose 128 mg/dL; Hemoglobin A1c % 6.1 % (<6.0)
[2023-11-07 14:29] LABS: Alanine Aminotransferase 41 U/L (0-40); Albumin Level 4.1 g/dL (3.5-5.0); Alkaline Phosphatase 65 U/L (39-117); Anion Gap 11 (12-20); Aspartate Amino Transferase 32 U/L (5-37); Bilirubin Total 0.7 mg/dL (0.0-1.0); Blood Urea Nitrogen 8 mg/dL (9-16); Calcium 9.6 mg/dL (8.4-10.2); Carbon Dioxide 27 mmol/L (22-29); Chloride 107 mmol/L (96-108); Cholesterol 173 mg/dL (<200); Estimated Glomerular Filt Rate > 60; Glucose Random 104 mg/dL (60-115); HDL Cholesterol 35 mg/dL (>40); LDL Cholesterol Calculated 113 mg/dL (<100); Potassium 3.9 mmol/L (3.3-5.1); Sodium 141 mmol/L (135-145); Total Protein 7.6 g/dL (6.5-8.0); Triglycerides 128 mg/dL (<150)
[2023-11-07 14:32] LABS: TSH reflex Free T4 0.56 uIU/mL (0.32-4.0)
[2023-11-07 14:42] LABS: Reflex LDLD? No
== END 2023-11-07 11:38 | disposition home or self-care (01) ==
LOC: HO.HHCL 11:37
PROVIDERS: Visit Provider Family Medicine
DX: R73.03 Prediabetes (principal); R03.0 Elevated blood-pressure reading, without diagnosis of hypertension
CPT/HCPCS: 36415; 80053; 80061; 83036; 84443

== ENCOUNTER 2023-11-15 08:28 | Outpatient (REF) | payer MEDICAID, SELFPAY ==
--- NOTE | ~2023-11-15 | US_ITS ---
EXAMINATION: US ABDOMEN COMPLETE CLINICAL INFORMATION: Transaminitis. Abdominal discomfort. COMPARISON: Ultrasound abdomen complete 01/03/2023. CT abdomen and pelvis 10/20/2017. TECHNIQUE: Real-time imaging of the abdominal viscera. FINDINGS: PANCREAS: Obscured by bowel gas. ABDOMINAL AORTA: Visualized portions are normal in caliber. INFERIOR VENA CAVA: Visualized portions are normal. LIVER: The liver is normal in size. The liver contour is normal. There is diffuse increased liver parenchymal echogenicity, consistent with hepatic steatosis. No focal hepatic lesion. There is no intrahepatic biliary duct dilatation seen. GALLBLADDER: Normal. The gallbladder is physiologically distended without evidence of stones, sludge, polyps, wall thickening or pericholecystic fluid. COMMON BILE DUCT: Normal in caliber measuring 0.3 cm in diameter. RIGHT KIDNEY: No hydronephrosis or focal parenchymal lesions. The kidney measures 10.4 cm in maximum dimension. Possible 4 mm nonobstructing calculus in the mid kidney. LEFT KIDNEY: Normal. No hydronephrosis. No renal calculi or focal parenchymal lesions. The kidney measures 10.8 cm in maximum dimension. SPLEEN: Normal. The spleen measures 11.0 cm in maximum dimension. FREE FLUID: None. US/US abdomen complete IMPRESSION: Hepatic steatosis. Possible 4 mm nonobstructing calculus in the mid right kidney which is new compared to prior ultrasound and CT. This could potentially be artifact. There is no hydronephrosis.
== END 2023-11-15 08:29 | disposition home or self-care (01) ==
LOC: HO.US 08:28
PROVIDERS: PCP Family Medicine; Visit Provider Family Medicine
DX: R13.10 Dysphagia, unspecified (principal); R74.01 Elevation of levels of liver transaminase levels
CPT/HCPCS: 76700

== ENCOUNTER 2024-02-22 07:45 | Day surgery (SDC) | payer MEDICAID, SELFPAY ==
--- NOTE | 2024-02-21 09:04 | P.CONAN_ITS ---
Documented by User: Shira Burgos NP 02/21/24 09:04 HPI - Anesthesia Eval Consult details Narrative: 48yo M for Upper Endoscopy PMFSH Active Problems Active Problems: All Active Problems Constipation (Acute) Dysphagia (Acute) Erosive esophagitis (Acute) Dermatofibroma of back (Acute) H/O colonoscopy (Acute) Pre-op examination (Acute) Erectile dysfunction (Acute) Past Medical History Medical History Acute renal failure Depression Thalassemia Asthma Umbilical hernia History of diverticulitis Dyspepsia Abdominal distension, gaseous GERD (gastroesophageal reflux disease) Abnormal CT of the abdomen Family History Family history of problems with anesthesia: No Surgical History Surgical History Hx of colonoscopy H/O inguinal hernia repair S/P ORIF (open reduction internal fixation) fracture H/O esophagogastroduodenoscopy History of Problems with Anesthesia: No Social History Social History Are you a primary career portals teacher to a significant other at home: No Do you presently have visiting nurse or other home services: No Alcohol intake: never Patient Tobacco Use Status: Never used Tobacco Second Hand Smoke Exposure: No Use of substances other than those prescribed or required for medical reasons: No Are you DNR?: No Advance Directives: No Advance Directives Information Provided: Yes Meds Allergies Allergy/AdvReac Type Severity Reaction Status Date / Time No Known Allergies Allergy Verified 02/17/23 10:34 Home Medications ?Medication ?Instructions ?Recorded ?Confirmed ?Last Taken ?Type albuterol sulfate 90 mcg/actuation 2 puff PO Q4-6H PRN dyspnea 02/23/22 02/01/23 Unknown History aerosol inhaler (ProAir HFA) Exam Pertinent Lab Results Pertinent Lab Results: Laboratory Tests 12/17/22 11/07/23 09:52 11:39 WBC 4.9 Hgb 14.0 Hct 47.7 Plt Count 241 Sodium 141 Potassium 3.9 Chloride 107 Carbon Dioxide 27 BUN 8 L Creatinine 1.07 Narrative Narrative: EKG 07/2023 Vent. Rate : 072 BPM Atrial Rate : 072 BPM P-R Int : 144 ms QRS Dur : 090 ms QT Int : 386 ms P-R-T Axes : 044 022 037 degrees QTc Int : 422 ms Normal sinus rhythm Normal ECG When compared with ECG of 25-AUG-2019 21:34, No significant change was found Assessment and Plan Assessment Anesthesia Assessment: Chart Reviewed Final Anesthetic Review Family History of Problems with Anesthesia: No History of Problems with Anesthesia: No Documented by User: Sarah Dsouza MD 02/22/24 10:37 [facility] Active Problems Active Problems: All Active Problems Constipation (Acute) Dysphagia (Acute) Erosive esophagitis (Acute) Dermatofibroma of back (Acute) H/O colonoscopy (Acute) Pre-op examination (Acute) Erectile dysfunction (Acute) Asthma- rarely needs inhaler Past Medical History Medical History Acute renal failure Depression Thalassemia Asthma Umbilical hernia History of diverticulitis Dyspepsia Abdominal distension, gaseous GERD (gastroesophageal reflux disease) Abnormal CT of the abdomen Family History Family history of problems with anesthesia: No Surgical History Surgical History Hx of colonoscopy H/O inguinal hernia repair S/P ORIF (open reduction internal fixation) fracture H/O esophagogastroduodenoscopy History of Problems with Anesthesia: No Social History Social History Are you a primary career portals teacher to a significant other at home: No Do you presently have visiting nurse or other home services: No Alcohol intake: never Patient Tobacco Use Status: Never used Tobacco Second Hand Smoke Exposure: No Use of substances other than those prescribed or required for medical reasons: No Are you DNR?: No Advance Directives: No Advance Directives Information Provided: Yes Meds Allergies Allergy/AdvReac Type Severity Reaction Status Date / Time No Known Allergies Allergy Verified 02/17/23 10:34 Home Medications ?Medication ?Instructions ?Recorded ?Confirmed ?Last Taken ?Type albuterol sulfate 90 mcg/actuation 2 puff PO Q4-6H PRN dyspnea 02/23/22 02/01/23 Unknown History aerosol inhaler (ProAir HFA) Exam Height,Weight and Vital Signs: Height 5 ft 5 in Weight 79.492 kg Vital Signs Temp Pulse Resp BP Pulse Ox O2 Del Method 02/22/24 09:33 96.3 F L 54 16 121/76 99 Room Air Airway Mallampati Class: II TM Dist: >3cm Neck ROM: Full Loose/Missing/Broken Teeth: No (Denies broken, loose, missing teeth) Heart: RRR Lungs: CTAB Assessment and Plan Assessment Anesthesia Assessment: Anesthesia Plan Discussed and Chart Reviewed Final Anesthetic Review Family History of Problems with Anesthesia: No History of Problems with Anesthesia: No NPO: Yes ASA Class: II Final Preanesthetic Review: No Changes in Pt Med Stat, Meds/Allgs Chart Reviewed, Consent Obtained/Reviewed and Anes Risks/Benef Reviewed Patient Risk: Low Procedure Risk: Low Assessment/Block/Sedation in SS: Assess/Block/Sedation-SS Anesthetic Plan Anesthetic Plan: TIVA Disposition: Standard PACU
[2024-02-22 09:05] VITALS: BMI 29.2
[2024-02-22 09:16] VITALS: BMI 29.2
[2024-02-22 09:33] VITALS: BP 121/76; PULSE 54; RESP 16; TEMP 35.7; O2SAT 99
[2024-02-22] MEDS: Lactated Ringers 1,000 ML 100 ML IVCONT (09:43)
--- NOTE | 2024-02-22 09:56 | MHC.SHP ---
Pre-Procedural Eval Section A - 24 Hr Update-Section A only Date of Service: 02/22/24 The patient is an INPATIENT: No The patient has been examined within 24 hours of the surgical procedure. The History & Physical has been completed within 30 days and I have reviewed it.: No Section B - Complete if H&P > 30 days Chief Complaint: Ulcer of esophagus without bleeding Relevant Family History (Specify if Yes): No Relevant Social History: None Present Medications: see Short Stay Collaborative assessment Medical History: Significant History (Abnormal CT of the abdomen Acute renal failure Asthma Depression Dyspepsia GERD (gastroesophageal reflux disease) History of diverticulitis Thalassemia Umbilical hernia) History of Previous Operations: Relevant previous surgery/procedure and date(s) (H/O esophagogastroduodenoscopy H/O inguinal hernia repair S/P ORIF (open reduction internal fixation) fracture) Allergies: Allergies Allergy/AdvReac Type Severity Reaction Status Date / Time No Known Allergies Allergy Verified 02/17/23 10:34 Review of Systems Sugical H&P ROS: Negative: Constitution, Cardiovascular, Respiratory and Gastrointestinal Exam Surgical H&P Exam: Normal: Heart, Normal: Lungs, Normal: Extremities and Normal: Abdomen Plan Diagnosis/Plan: Unchanged I have reviewed the history and physical and performed a pertinent physical examination on my patient. No changes have occurred unless specified. Time Spent With Patient Time: Total time managing care of this patient today ____ minutes.
--- NOTE | 2024-02-22 11:32 | W.PM.OPN ---
Operative Note Operative Note Date of Service: 02/22/24 Narrative: FLEXIBLE TRANSORAL UPPER GASTROINTESTINAL ENDOSCOPY WITH BIOPSIES Pre-op diagnosis: GERD, follow-up of erosive esophagitis Post-op diagnosis: GERD, hiatal hernia, erosive esophagitis Endoscopist:? Jules Arias MD Anesthesia:?MAC UPPER ENDOSCOPY Consent: Indications for the procedure and potential complications of bleeding, perforation, reaction to medications and missed diagnosis were discussed with the patient and informed consent was obtained. Instrument: Olympus GIF H 190 mid size upper endoscope Monitoring: Vital signs and clinical assessment, continuous EKG monitoring, Pulse oximetry, Carbon Dioxide monitoring and blood pressure monitoring were done throughout the procedure. Procedure: The patient was placed in the left lateral decubitis position and pre-procedure medications were administered and a bite block was placed. The endoscope was inserted into the mouth and advanced under direct vision to the third part of duodenum. A careful inspection was made as the upper endoscope was withdrawn including a retroflexed examination of the proximal stomach; Findings and interventions are described below. Findings: Larynx: Normal Esophagus: GE junction at 36 cms, small hiatal hernia 36 to 38 cms. LA Grade C esophagitis 32 to 36 cms with edema, erythema and ulcers covered with white exudate (improved from LA Grade D on initial EGD). Edematous folds at GE junction - biopsied. Stomach: Mild gastric erythema. Biopsies obtained during previous EGD were negative for H pylori. Grade 3 flap valve on retroflexed examination of the cardia. Duodenum: Normal bulb and descending duodenum Intervention: Biopsies as noted above Impression and Post Procedure Diagnosis: Endoscopy Findings: ESOPHAGUS: Hiatal hernia, persistent erosive esophagitis Plan: Pt has a FU appointment on 03/29/[address] Arias Consider Lap fundoplication since no significant improvement in erosive esophagitis despite high does PPI (Pt stated he has been compliant with Pantoprazole 40 mg twice daily and was unable to take it over the past week since he ran out of his prescription) Above findings were reviewed with the patient and relevant handouts were given in the discharge area.
[2024-02-22 11:36] VITALS: BP 103/58; PULSE 63; RESP 16; TEMP 36.1; O2SAT 94
[2024-02-22 11:51] VITALS: BP 117/76; PULSE 74; RESP 16; O2SAT 96
[2024-02-22 12:06] VITALS: BP 121/80; PULSE 70; RESP 18; TEMP 36.6; O2SAT 96
== END 2024-02-22 12:22 | disposition home or self-care (01) ==
PROVIDERS: PCP Family Medicine; Visit Provider Internal Medicine Gastroenterology
PROC: 0DJ08ZZ Inspection of Upper Intestinal Tract, Via Natural or Artificial Opening Endoscopic (ICD-10-PCS; CPT 43235; principal; 2024-02-22 10:00)
DX: K22.10 Ulcer of esophagus without bleeding (principal); Z87.19 Personal history of other diseases of the digestive system; K44.9 Diaphragmatic hernia without obstruction or gangrene; K21.9 Gastro-esophageal reflux disease without esophagitis; K42.9 Umbilical hernia without obstruction or gangrene; R10.13 Epigastric pain; D56.9 Thalassemia, unspecified; N17.9 Acute kidney failure, unspecified; J45.909 Unspecified asthma, uncomplicated; F32.A Depression, unspecified; Z79.899 Other long term (current) drug therapy; Z98.890 Other specified postprocedural states
CPT/HCPCS: 43239; 88305; 88313; J1596; J2704

== ENCOUNTER → 2024-02-22 07:45 | Outpatient (BNV) | payer MEDICAID, SELFPAY | PROVIDERS: PCP Family Medicine; Visit Provider Internal Medicine Gastroenterology | DX: K22.10 Ulcer of esophagus without bleeding (principal); K21.00 Gastro-esophageal reflux disease with esophagitis, without bleeding | CPT/HCPCS: 43239 ==

== ENCOUNTER 2024-03-29 13:46 | Outpatient (AMB) | payer MEDICAID, SELFPAY ==
--- NOTE | 2024-03-29 13:50 | A.OFFVIS_ITS ---
Vital Signs 03/29/24 14:10 Height 5 ft 5 in Weight 180 lb BMI 30.0 BP 121/69 Blood Pressure Location Lt brachial Position Sitting Pulse 73 Intake Visit Reasons: s/p egd Intake Note: patient follow up for Ulcer of Esophagus without bleeding and EGD results Patient denies any GI issues. Admitting Office Escort Required: Yes Accompanied by: Self / Same As Patient Allergies No Known Allergies Allergy (Verified 03/29/24 13:49) Medication List - Last Reconciled 03/29/24 by Jules Arais MD albuterol sulfate 90 mcg/actuation (ProAir HFA) 2 puffs PO Q4-6H PRN naproxen (Naprosyn) 500 mg PO BID PRN pantoprazole (Protonix) 40 mg PO BID 90 days prednisone 40 mg (2 x 20 mg) PO DAILY 4 days sennosides (Senna Laxative) 17.2 mg (2 x 8.6 mg) PO BEDTIME HPI HPI s/p egd: Details: GI clinic visit for this 48 year old [place]ican-speaking male for follow-up of GERD with erosive esophagitis TODAY'S VISIT: EGD results were reviewed. Admits to taking PPI twice daily and states he has been compliant with medications Can have regurgitation and heartburn when he bends down Can wake up at night with regurgitation of acid Denies taking NSAIDS or asprin. Patient denies symptoms of nausea, vomiting, change in appetite Admits to gaining weight. Complains of intermittent chronic constipation Denies recent change in bowel habits, diarrhea, black stools or rectal bleeding. Patient denies major cardiac or pulmonary problems, loud snoring or sleep apnea Denies problems with anesthesia in the past. Denies being on chronic anticoagulation. Patient denies known family history of colon polyps, colon cancer or other GI malignancies. LABS IN [facility] : Reviewed IMAGING STUDIES: 11/15/23 ABD US SHOWED: Hepatic steatosis. Possible 4 mm nonobstructing calculus in the mid right kidney which is new compared to prior ultrasound and CT. This could potentially be artifact. There is no hydronephrosis. ENDOSCOPIC STUDIES: 02/22/24 EGD SHOWED: Esophagus: GE junction at 36 cms, small hiatal hernia 36 to 38 cms. LA Grade C esophagitis 32 to 36 cms with edema, erythema and ulcers covered with white exudate (improved from LA Grade D on initial EGD). Edematous folds at GE junction - biopsied. Stomach: Mild gastric erythema. Biopsies obtained during previous EGD were negative for H pylori. Grade 3 flap valve on retroflexed examination of the cardia. Duodenum: Normal bulb and descending duodenum Impression and Post Procedure Diagnosis: Endoscopy Findings: ESOPHAGUS: Hiatal hernia, persistent erosive esophagitis Plan: Consider Lap fundoplication since no significant improvement in erosive esophagitis despite high does PPI (Pt stated he has been compliant with Pantoprazole 40 mg twice daily and was unable to take it over the past week since he ran out of his prescription) PAST GI HISTORY BY REVIEW OF MEDICAL RECORDS: Last seen by Silvia Overton in 02/2023: He is here today with a young female child assume to be his daughter. She shows me all of the lips stick in the contents of her little pocket book! His nausea has continued to improved since he started the pantoprazole but has not yet completely resolved. Since he still had quite a bit of erosive gastritis but biopsies seem to be negative for active inflammation I think he is in a process of healing adult take little more time. He is agreeable to waiting this out and continuing on the medication. The endoscopy this wants to evaluate him again in 3 or 4 months so I sent a note to the schedulers to get this done. He is aware and agreeable to the repeat EGD. He received the senna any feels like this is working well to control his constipation. COLONOSCOPY TILL CECUM WITH [] Pre-op diagnosis: [] Post-op diagnosis: [] Endoscopist: Jules Arias MD Anesthesia: MAC Consent: Indications for the procedure and potential complications of bleeding, perforation, reaction to medications and missed diagnosis were discussed with the patient and informed consent was obtained. Instrument: Olympus PCF H 190 L variable stiffness pediatric colonoscope Monitoring: Vital signs and clinical assessment, intermittent blood pressure monitoring, continuous EKG monitoring, Pulse oximetry and Carbon Dioxide monitoring were done throughout the procedure. Please see anesthesia flowsheet. Colon withdrawl time was [] minutes. Procedure: The patient was placed in the left lateral decubitis position and pre-procedure medications were administered. After a digital rectal examination of the ano-rectum, the video colonoscope was inserted into the rectum and advanced through the colon to the cecum. The colonoscope was slowly withdrawn in a retrograde panoramic fashion and the colon mucosa was carefully examined including a retroflexed view of the rectum. Findings and interventions are described below. Procedure Difficulty: [Without difficulty] [LLQ pressure applied to intubate the transverse colon/cecum] Findings: Terminal Ileum: Not evaluated Cecum: Normal Ascending Colon: Normal Transverse Colon: Normal Descending Colon: Normal Sigmoid Colon: Moderate diverticulosis Rectum: Normal Ano-rectum: Moderate internal hemorrhoids Colon preparation: [Excellent] [Good] [Fair] [poor] Impression and Post Procedure Diagnosis: Colonoscopy Findings: [] polyps removed Moderate diverticulosis seen in the []colon Moderate hemorrhoids on retroflexed exam. Plan: Await pathology results Patient has an appointment on []in the GI Clinic with [VASQUEZ Coleman] [Silvia Overton NP] [Maria Del Rosario Tavarez, [place]-] [Jules Arias M.D.]. Repeat Colonoscopy interval based on path results - in 3-5 years if polyps are adenomatous and 10 years if polyps are hyperplastic. Above findings were reviewed with the patient and [colon polyps] and [diverticulosis] handouts were given in the discharge area [facility] Medical History (Updated 03/29/24 @ 14:34 by Jules Arias MD) Acute renal failure Depression Thalassemia Asthma Umbilical hernia History of diverticulitis Dyspepsia Abdominal distension, gaseous GERD (gastroesophageal reflux disease) Abnormal CT of the abdomen Surgical History Hx of colonoscopy H/O inguinal hernia repair S/P ORIF (open reduction internal fixation) fracture H/O esophagogastroduodenoscopy Social History Are you a primary director of medicare to a significant other at home: No Do you presently have visiting nurse or other home services: No Alcohol intake: never Patient Tobacco Use Status: Never used Tobacco Second Hand Smoke Exposure: No Review of Systems Const All systems reviewed & are unremarkable except as noted in HPI and below Physical Exam Vital Signs: Last Vital Signs Pulse 73 03/29/24 14:10 BP 121/69 03/29/24 14:10 BMI result Body Mass Index 30.0 Const General: healthy appearing and no acute distress Nutritional Appearance: obese Orientation/consciousness: patient oriented x3 Limitations: language barrier HEENT Head: Yes normal to inspection Ears: hearing grossly normal bilaterally Eyes Sclerae: sclerae normal Pupils: Equal, round and reactive pupils present Neck Neck: Yes normal visual inspection Chest Chest palpation & inspection: normal inspection of the chest Resp Effort & Inspection: normal respiratory effort Auscultation: clear to auscultation bilaterally Cardio Palpation: normal PMI Rate: regular rate Rhythm: regular rhythm Heart sounds: S1 normal heart sound present, S2 normal heart sound present and no murmurs GI Palpation (GI): Soft to palpation, nontender and No hepatosplenomegaly present Auscultation: normal bowel sounds Rectal Exam - Male: Yes deferred Skin General skin exam: no rashes or lesions noted Neuro General: patient oriented x3, gait normal and moves all extremities Cranial nerves: Yes Equal, round and reactive pupils present Psych Appearance: grossly normal Mental Status: mental status grossly normal Assessment & Plan Assessment & Plan (1) Erosive esophagitis: Code(s): K22.10 - Ulcer of esophagus without bleeding Category: Medical (2) Abdominal distension: Code(s): R14.0 - Abdominal distension (gaseous) Category: Medical Plan 48 year old [place]ican-speaking male followed in GI for persistent GERD symptoms. 02/2024 EGD showed LA Grade C esophagitis 32 to 36 cms with edema, erythema and ulcers covered with white exudate (improved from LA Grade D on initial EGD). His nausea has continued to improved since he started the pantoprazole but has not yet completely resolved. Patient was advised to schedule a barium swallow Patient was advised to continue senna for constipation. FU in 4 months ADDENDUM: 05/01/24 BARIUM SWALLOW SHOWED: 1. Mildly patulous esophagus with moderately disorganized esophageal peristalsis, consistent with esophageal dysmotility. 2. Grossly no esophageal mucosal abnormalities or ulcerations seen. 3. Small type I hiatal hernia with moderate gastroesophageal reflux. 4. Limited evaluation of the gastric mucosa due to underdistention of the stomach from poor tolerance of the effervescent granules. No obvious masses are seen. Suspect gastric rugal fold thickening and likely underlying gastritis. Orders: Orders FL barium swallow 03/29/24 K22.10 - Ulcer of esophagus without bleeding Medications: Changed From pantoprazole 40 mg PO BID 90 days 180 tabs 1RF K22.10 - Ulcer of esophagus without bleeding, R13.10 - Dysphagia, unspecified To pantoprazole (Protonix) 40 mg PO TID 270 tabs 1RF 90 days K22.10 - Ulcer of esophagus without bleeding, R13.10 - Dysphagia, unspecified Coding Level of Care Code Est Pt Level 3 (30967) Diagnoses Erosive esophagitis K22.10 Abdominal distension R14.0 Time Spent (min) 22
[2024-03-29 14:10] VITALS: BP 121/69; PULSE 73
== END 2024-03-29 14:39 | disposition home or self-care (01) ==
PROVIDERS: PCP Family Medicine; Visit Provider Internal Medicine Gastroenterology
DX: K22.10 Ulcer of esophagus without bleeding (principal); R14.0 Abdominal distension (gaseous)
CPT/HCPCS: 99499

== ENCOUNTER → 2024-03-29 13:46 | Outpatient (BNVA) | payer MEDICAID, SELFPAY | PROVIDERS: PCP Family Medicine; Visit Provider Internal Medicine Gastroenterology ==

== ENCOUNTER 2024-04-04 09:24 | Outpatient (REF) | payer MEDICAID, SELFPAY ==
--- NOTE | ~2024-04-04 | US_ITS ---
EXAMINATION: US ABDOMEN LIMITED CLINICAL INFORMATION: Abdominal distension (gaseous). Patient complains of weight gain with abdominal distension. Rule out ascites. COMPARISON: Ultrasound abdomen complete 11/15/2023 and 01/03/2023. X-ray abdomen KUB 04/18/2019. CT abdomen and pelvis 10/20/2017. TECHNIQUE: Real-time imaging of the abdomen in all 4 quadrants to look for ascites. FINDINGS: No ascites is seen in the abdomen or pelvis. US/US abdomen limited IMPRESSION: No ascites is seen. Electronically signed by: Shahriar Salinas MD 04/20/2024 12:48 AM EDT
== END 2024-04-04 09:25 | disposition home or self-care (01) ==
LOC: HO.US 09:24
PROVIDERS: PCP Family Medicine; Visit Provider Internal Medicine Gastroenterology
DX: R14.0 Abdominal distension (gaseous) (principal)
CPT/HCPCS: 76705

== ENCOUNTER 2024-05-01 07:45 | Outpatient (REF) | payer MEDICAID, SELFPAY ==
--- NOTE | ~2024-05-01 | FL_ITS ---
EXAMINATION: XR FLUOROSCOPY UPPER GI WITH AIR CLINICAL INFORMATION: GERD, erosive esophagitis. COMPARISON: None TECHNIQUE: Fluoroscopic air contrast upper GI examination was performed utilizing standard techniques with thin and thick barium and effervescent granules. Numerous spot images were obtained. FINDINGS: Lateral cine images of the oropharynx and hypopharynx demonstrate reversal of the normal cervical lordosis. There is normal swallow mechanism with normal epiglottic inversion and soft palate elevation. No tracheal penetration, glottic or subglottic aspiration identified. No nasopharyngeal reflux present. Hypopharyngeal structures appear normal without evidence of mass or diverticulum. There is mild cricopharyngeal achalasia. Dual and single contrast images of the esophagus demonstrate a patulous esophagus. Normal mucosal pattern. No ulcerations are seen. No evidence of strictures or masses are identified. There is to and fro motion of the barium column, with nonpropulsive tertiary contractions noted throughout the esophagus. A small type I hiatal hernia is present. Gastroesophageal reflux is seen up to the midesophagus. Dual contrast and single contrast images of the stomach demonstrated a normal contour. Evaluation of the gastric mucosa is limited due to underdistention of the stomach from poor tolerance of the effervescent granules. No obvious masses are seen. Contrast freely passed into the gastric antrum and duodenal bulb without delay. Single and air-contrast images of the duodenal bulb demonstrate no abnormality. The duodenal sweep has a normal appearance, course, and mucosal fold appearance. The imaged proximal jejunum has a normal fold pattern and caliber. FLUOROSCOPY TIME: 4 minutes 55 seconds DOSE AREA PRODUCT: 3095 uGy-m2 (microgray-meter squared) FL/FL barium swallow with air IMPRESSION: 1. Mildly patulous esophagus with moderately disorganized esophageal peristalsis, consistent with esophageal dysmotility. 2. Grossly no esophageal mucosal abnormalities or ulcerations seen. 3. Small type I hiatal hernia with moderate gastroesophageal reflux. 4. Limited evaluation of the gastric mucosa due to underdistention of the stomach from poor tolerance of the effervescent granules. No obvious masses are seen. Suspect gastric rugal fold thickening and likely underlying gastritis. This procedure was performed by Marco A Calle PA-C, and supervised by Dr. Lepe Electronically signed by: Heber Lepe MD 05/02/2024 01:11 PM EDT
== END 2024-05-01 07:46 | disposition home or self-care (01) ==
LOC: HO.XRAY 07:45
PROVIDERS: PCP Family Medicine; Visit Provider Internal Medicine Gastroenterology
DX: K22.10 Ulcer of esophagus without bleeding (principal)
CPT/HCPCS: 74221

== ENCOUNTER → 2024-05-01 07:46 | Outpatient (BNV) | payer MEDICAID, SELFPAY | PROVIDERS: PCP Family Medicine; Visit Provider Radiology Diagnostic Radiology | DX: K21.9 Gastro-esophageal reflux disease without esophagitis (principal) | CPT/HCPCS: 74221 ==

== ENCOUNTER 2024-08-02 12:27 | Outpatient (AMB) | payer MEDICAID, SELFPAY ==
--- NOTE | 2024-08-02 12:30 | A.OFFVIS_ITS ---
Vital Signs 08/02/24 12:31 Height 5 ft 5 in Weight 181 lb BMI 30.1 BP 126/66 Blood Pressure Location Lt brachial Position Sitting Pulse 69 Intake Visit Reasons: 4 month follow up Intake Note: Patient follow up for Abdominal distension, Barrium swallow and abd US results. Patient denies any GI issues. Gas Operation Manager Required: No Accompanied by: Self / Same As Patient Allergies No Known Allergies Allergy (Verified 08/02/24 12:29) Medication List - Last Reconciled 08/02/24 by Jules Arias MD albuterol sulfate 90 mcg/actuation (ProAir HFA) 2 puffs PO Q4-6H PRN naproxen (Naprosyn) 500 mg PO BID PRN pantoprazole (Protonix) 40 mg PO TID 90 days prednisone 40 mg (2 x 20 mg) PO DAILY 4 days sennosides (Senna Laxative) 17.2 mg (2 x 8.6 mg) PO BEDTIME HPI HPI 4 month follow up: Details: GI clinic visit for this 48 year old Serbian-speaking male for follow-up of GERD with erosive esophagitis TODAY'S VISIT: Taking Pantoprazole twice a day and feels better - reports improved compliance with Pantoprazole Notes heartburn if he forgets to take the pill Barium swallow results were reviewed. PAST VISITS: EGD results were reviewed. Admits to taking PPI twice daily and states he has been compliant with medications Can have regurgitation and heartburn when he bends down Can wake up at night with regurgitation of acid Denies taking NSAIDS or asprin. Patient denies symptoms of nausea, vomiting, change in appetite Admits to gaining weight. Complains of intermittent chronic constipation Denies recent change in bowel habits, diarrhea, black stools or rectal bleeding. Patient denies major cardiac or pulmonary problems, loud snoring or sleep apnea Denies problems with anesthesia in the past. Denies being on chronic anticoagulation. Patient denies known family history of colon polyps, colon cancer or other GI malignancies. LABS IN [facility] : Reviewed IMAGING STUDIES: 11/15/23 ABD US SHOWED: Hepatic steatosis. Possible 4 mm nonobstructing calculus in the mid right kidney which is new compared to prior ultrasound and CT. This could potentially be artifact. There is no hydronephrosis. ENDOSCOPIC STUDIES: 02/22/24 EGD SHOWED: Esophagus: GE junction at 36 cms, small hiatal hernia 36 to 38 cms. LA Grade C esophagitis 32 to 36 cms with edema, erythema and ulcers covered with white exudate (improved from LA Grade D on initial EGD). Edematous folds at GE junction - biopsied. Stomach: Mild gastric erythema. Biopsies obtained during previous EGD were negative for H pylori. Grade 3 flap valve on retroflexed examination of the cardia. Duodenum: Normal bulb and descending duodenum Impression and Post Procedure Diagnosis: Endoscopy Findings: ESOPHAGUS: Hiatal hernia, persistent erosive esophagitis Plan: Consider Lap fundoplication since no significant improvement in erosive esophagitis despite high does PPI (Pt stated he has been compliant with Pantoprazole 40 mg twice daily and was unable to take it over the past week since he ran out of his prescription) PAST GI HISTORY BY REVIEW OF MEDICAL RECORDS: Last seen by Silvia Overton in 02/2023: He is here today with a young female child assume to be his daughter. She shows me all of the lips stick in the contents of her little pocket book! His nausea has continued to improved since he started the pantoprazole but has not yet completely resolved. Since he still had quite a bit of erosive gastritis but biopsies seem to be negative for active inflammation I think he is in a process of healing adult take little more time. He is agreeable to waiting this out and continuing on the medication. The endoscopy this wants to evaluate him again in 3 or 4 months so I sent a note to the schedulers to get this done. He is aware and agreeable to the repeat EGD. He received the senna any feels like this is working well to control his constipation. COLONOSCOPY TILL CECUM WITH [] Pre-op diagnosis: [] Post-op diagnosis: [] Endoscopist: Jules Arias MD Anesthesia: MAC Consent: Indications for the procedure and potential complications of bleeding, perforation, reaction to medications and missed diagnosis were discussed with the patient and informed consent was obtained. Instrument: Olympus PCF H 190 L variable stiffness pediatric colonoscope Monitoring: Vital signs and clinical assessment, intermittent blood pressure monitoring, continuous EKG monitoring, Pulse oximetry and Carbon Dioxide monitoring were done throughout the procedure. Please see anesthesia flowsheet. Colon withdrawl time was [] minutes. Procedure: The patient was placed in the left lateral decubitis position and pre-procedure medications were administered. After a digital rectal examination of the ano-rectum, the video colonoscope was inserted into the rectum and advanced through the colon to the cecum. The colonoscope was slowly withdrawn in a retrograde panoramic fashion and the colon mucosa was carefully examined including a retroflexed view of the rectum. Findings and interventions are described below. Procedure Difficulty: [Without difficulty] [LLQ pressure applied to intubate the transverse colon/cecum] Findings: Terminal Ileum: Not evaluated Cecum: Normal Ascending Colon: Normal Transverse Colon: Normal Descending Colon: Normal Sigmoid Colon: Moderate diverticulosis Rectum: Normal Ano-rectum: Moderate internal hemorrhoids Colon preparation: [Excellent] [Good] [Fair] [poor] Impression and Post Procedure Diagnosis: Colonoscopy Findings: [] polyps removed Moderate diverticulosis seen in the []colon Moderate hemorrhoids on retroflexed exam. Plan: Await pathology results Patient has an appointment on []in the GI Clinic with [VASQUEZ Coleman] [Silvia Overton NP] [Maria Del Rosario Tavarez, [facility] [place]-] [Jules Arias M.D.]. Repeat Colonoscopy interval based on path results - in 3-5 years if polyps are adenomatous and 10 years if polyps are hyperplastic. Above findings were reviewed with the patient and [colon polyps] and [diverticulosis] handouts were given in the discharge area [facility] Medical History (Updated 03/29/24 @ 14:34 by Jules Arias MD) Acute renal failure Depression Thalassemia Asthma Umbilical hernia History of diverticulitis Dyspepsia Abdominal distension, gaseous GERD (gastroesophageal reflux disease) Abnormal CT of the abdomen Surgical History Hx of colonoscopy H/O inguinal hernia repair S/P ORIF (open reduction internal fixation) fracture H/O esophagogastroduodenoscopy Social History Are you a primary acute care physical therapist to a significant other at home: No Do you presently have visiting nurse or other home services: No Alcohol intake: never Patient Tobacco Use Status: Never used Tobacco Second Hand Smoke Exposure: No Review of Systems Const All systems reviewed & are unremarkable except as noted in HPI and below Physical Exam Vital Signs: Last Vital Signs Pulse 69 08/02/24 12:31 BP 126/66 08/02/24 12:31 BMI result Body Mass Index 30.1 Const General: healthy appearing and no acute distress Nutritional Appearance: obese Orientation/consciousness: patient oriented x3 Limitations: language barrier HEENT Head: Yes normal to inspection Ears: hearing grossly normal bilaterally Eyes Sclerae: sclerae normal Pupils: Equal, round and reactive pupils present Neck Neck: Yes normal visual inspection Chest Chest palpation & inspection: normal inspection of the chest Resp Effort & Inspection: normal respiratory effort Auscultation: clear to auscultation bilaterally Cardio Palpation: normal PMI Rate: regular rate Rhythm: regular rhythm Heart sounds: S1 normal heart sound present, S2 normal heart sound present and no murmurs GI Palpation (GI): Soft to palpation, nontender and No hepatosplenomegaly present Auscultation: normal bowel sounds Rectal Exam - Male: Yes deferred Skin General skin exam: no rashes or lesions noted Neuro General: patient oriented x3, gait normal and moves all extremities Cranial nerves: Yes Equal, round and reactive pupils present Psych Appearance: grossly normal Mental Status: mental status grossly normal Assessment & Plan Assessment & Plan (1) H/O colonoscopy: Comment: 2021- exam repeat in 10 years Code(s): Z98.890 - Other specified postprocedural states Category: Surgical (2) Erosive esophagitis: Code(s): K22.10 - Ulcer of esophagus without bleeding Category: Medical (3) Dysphagia: Code(s): R13.10 - Dysphagia, unspecified Category: Medical (4) Constipation: Code(s): K59.00 - Constipation, unspecified Category: Medical (5) Abdominal distension: Code(s): R14.0 - Abdominal distension (gaseous) Category: Medical Plan 48 year old Serbian-speaking male followed in GI for persistent GERD symptoms. 02/2024 EGD showed LA Grade C esophagitis 32 to 36 cms with edema, erythema and ulcers covered with white exudate (improved from LA Grade D on initial EGD). His nausea has continued to improved since he started the pantoprazole but has not yet completely resolved. Patient was advised to schedule a barium swallow Patient was advised to continue senna for constipation. 05/01/24 BARIUM SWALLOW SHOWED: 1. Mildly patulous esophagus with moderately disorganized esophageal peristalsis, consistent with esophageal dysmotility. 2. Grossly no esophageal mucosal abnormalities or ulcerations seen. 3. Small type I hiatal hernia with moderate gastroesophageal reflux. 4. Limited evaluation of the gastric mucosa due to underdistention of the sto mach from poor tolerance of the effervescent granules. No obvious masses are seen. Suspect gastric rugal fold thickening and likely underlying gastritis. FU in 6 months Repeat EGD in 1 year - follow-up of erosive esophagitis Medications: Discontinued prednisone Discontinued Reason: Patient Completed Course 40 mg (2 x 20 mg) PO DAILY 4 days 8 tabs 0RF Coding Level of Care Code Est Pt Level 3 (21035) Diagnoses H/O colonoscopy Z98.890 Erosive esophagitis K22.10 Dysphagia R13.10 Constipation K59.00 Abdominal distension R14.0 Time Spent (min) 15
[2024-08-02 12:31] VITALS: BP 126/66; PULSE 69; BMI 30.1
== END 2024-08-03 02:40 | disposition home or self-care (01) ==
PROVIDERS: PCP Family Medicine; Visit Provider Internal Medicine Gastroenterology
DX: Z98.890 Other specified postprocedural states (principal); K22.10 Ulcer of esophagus without bleeding; R13.10 Dysphagia, unspecified; K59.00 Constipation, unspecified; R14.0 Abdominal distension (gaseous)
CPT/HCPCS: 99213

== ENCOUNTER → 2024-08-02 12:27 | Outpatient (BNVA) | payer MEDICAID, SELFPAY | PROVIDERS: PCP Family Medicine; Visit Provider Internal Medicine Gastroenterology | DX: K22.10 Ulcer of esophagus without bleeding (principal); K59.00 Constipation, unspecified; R13.10 Dysphagia, unspecified; R14.0 Abdominal distension (gaseous); Z98.890 Other specified postprocedural states | CPT/HCPCS: 99212 ==

== ENCOUNTER 2024-08-03 07:28 | Outpatient (REF) | payer MEDICAID, SELFPAY ==
[2024-08-03 07:52] LABS: MANUAL DIFF FLAG NO
[2024-08-03 08:02] LABS: Basophils Percent Auto 0.8 % (0-2); Eosinophils Absolute Auto 0.1 X10*3/uL (0.0-0.4); Eosinophils Percent Auto 1.5 % (0-4); Hematocrit 47.2 % (42.0-52.0); Hemoglobin 13.9 g/dl (14.0-18.0); Imm Gran Abs Auto 0.01 X10*3/uL (0.00-0.03); Imm Gran Pct Auto 0.2 % (0.0-0.4); Lymphocytes Percent Auto 42.4 % (20-40); Mean Corpuscular HGB Conc 29.4 g/dl (31.0-36.0); Mean Corpuscular Hemoglobin 21.5 pg (27.0-33.0); Mean Corpuscular Volume 72.8 fL (80.0-98.0); Mean Platelet Volume 10.2 fL (9.4-12.4); Monocytes Absolute Auto 0.5 X10*3/uL (0.1-1.2); Neutrophils Absolute Auto 2.1 x10*3/uL (2.0-8.3); Neutrophils Percent Auto 44.1 % (45-73); Platelet Count 220 X10*3/uL (160-400); Red Blood Count 6.48 X10*6/uL (4.60-5.80); Red Cell Distribution Width 14.6 % (11.0-16.0); White Blood Count 4.7 X10*3/uL (4.8-10.8)
[2024-08-03 08:44] LABS: HBS Num1 236.23 mIU/mL (0-7.99); HBc Num1 0.38 S/CO (0.00-0.79); HBsAGNum1 0.36 S/CO (0.00-0.99); HIV AB/AG Nonreactive (Nonreactive); HIV Num 1 0.07 S/CO (0.00-0.99); Hepatitis B Core Antibody Nonreactive (Nonreactive); Hepatitis B Surface Antigen Negative (Negative); ~Hepatitis B Surface Antibody REACTIVE (Nonreactive); ~Hepatitis C Antibody Nonreactive (Nonreactive)
[2024-08-03 08:45] LABS: Hepatitis A Antibody IgG Nonreactive (Nonreactive)
[2024-08-03 08:51] LABS: Syphilis Screen Nonreactive (Nonreactive)
[2024-08-03 12:43] LABS: CT PCR NOT DETECTED (Not Detect.); NG PCR NOT DETECTED (Not Detect.)
== END 2024-08-03 07:29 | disposition home or self-care (01) ==
LOC: HO.LAB 07:28
PROVIDERS: PCP Family Medicine; Visit Provider Family Medicine
DX: Z11.3 Encounter for screening for infections with a predominantly sexual mode of transmission (principal); Z01.84 Encounter for antibody response examination; K76.0 Fatty (change of) liver, not elsewhere classified
CPT/HCPCS: 85025; 86704; 86706; 86708; 86780; 86803; 87340; 87389; 87491; 87591

== ENCOUNTER 2025-01-22 10:43 | Outpatient (REF) | payer MEDICAID, SELFPAY ==
--- OUTSIDE RECORDS SUMMARY | 2025-01-22 11:44 | XMS_ITS | Encounter Summary ---
Author Organization [employer] Address [address] [facility] [address] [place] [address] Care Team Providers Care Technology Applications Teacher Name Role Phone Payal Limon MD Primary Care Provider [phone] Encounter Details Date Type Department Care Team ([facility] st Contact Info) Description 11/16/2023 Orders Only [facility] [address] [place], [place] [phone] Payal Limon MD [address] [place], [place] [phone] Social History Tobacco Use Types Packs/Day Years Used Date Smoking Tobacco: Never Passive Smoke Exposure: Never Smokeless Tobacco: Never Depression Answer Date Recorded Patient Health Questionnaire-9 Score 0 11/07/2023 Patient Health Questionnaire-9 Score 0 11/07/2023 Last PHQ-9: Questionnaire Data Not on file 0 11/07/2023 Housing Stability Answer Date Recorded What is your housing situation today? I have margret aguilar 05/05/[address] you li ve. Do you have problems with any of the following? None of the above 05/05/2023 Food Insecurity Answer Date Recorded Within the past 12 months, y ou worried that your food would run out before you got money to buy more: Never True 05/05/2023 Within the past 12 months,th e food you bought just didn't last and you didn't have enough money to get more: Never True Transportation Answer Date Recorded In the past 12 months, has l ack of transportation kept you from medical appts, meetings, work or from getting things needed for daily living? No 05/05/2023 Utilities Answer Date Recorded In the past 12 months, has t he electric, gas, oil or water company threatened to shut off services in your home? No 05/05/2023 Depression Answer Date Recorded Patient Health Questionnaire-2 Score 0 11/07/2023 Sex and Gender Information Value Date Recorded Sex Assigned at Male 05/17/2022 10:17 AM EDT Legal Sex Male 10:17 AM EDT Gender Identity Male 05/17/2022 10:17 AM EDT Sexual Orientation Straight 05/17/2022 10 :17 AM EDT documented as of this encounter Plan of Treatment Not on file documented as of this encounter Visit Diagnoses Not on filedocumented in this encounter Additional Health Concerns Assessment Noted Time PHQ-9 Depression Total Score: 0 11/07/19 24 11:02 AM EDT documented as of this encounter Care Teams Technology Applications Teacher Relationship Specialty Start Date End Date Payal Limon MD [address] [place] [address] PCP - General Family Medicine 06/29/12 documented as of this encounter
--- OUTSIDE RECORDS SUMMARY | 2025-01-22 11:44 | XMS_ITS | Patient Health Record ---
Author Organization [facility] Address [address] [place] [address] Care Team Providers Care Ginner Name Role Phone Alayna CAMPUZANO, Anita Primary Care Provider Unavail able Jose Painting Jr Unavailable [phone] Reason For Referral No Information Medications Medication SIG (Take, Route, Fr equency, Duration) Notes Start Date End Date Status Omeprazole Active Tylenol 8 Hour Activ e Albuterol Sulfate Ac tive Problems Problem Type SNOMED Code ICD Code Onset Dates Problem Status W/U Status Risk Notes Problem Nonspecific abno rmal findings on radiological and examination of gastrointestinal tract (793.4) Active confirmed Plan Of Treatment No Information Insurance Providers Payer Name Payer Address Payer Phone Subscriber Number Group Number Insured Name Patient Relationship to Insured Coverage Start Date Coverage End Date MEDICAID OF [employer] [address] [place] [phone] [id number] [id number] [id number] Self - patient is the insured Medical (General) History Medical History History ICD Code Diverticulitis ARF Surgical History Surgery Date(Month/Year) carpal tunnel
[2025-01-22 11:57] LABS: Hemoglobin A1C 162.2990 umol/L; Total Hemoglobin (HGBA1C) 3682.8891 umol/L
[2025-01-22 12:22] LABS: Alanine Aminotransferase 37 U/L (0-40); Albumin Level 4.5 g/dL (3.5-5.0); Alkaline Phosphatase 62 U/L (39-117); Anion Gap 11 (12-20); Aspartate Amino Transferase 34 U/L (5-37); Blood Urea Nitrogen 10 mg/dL (9-16); Calcium 9.4 mg/dL (8.4-10.2); Carbon Dioxide 29 mmol/L (22-29); Chloride 105 mmol/L (96-108); Cholesterol 175 mg/dL (<200); Estimated Glomerular Filt Rate > 60; HDL Cholesterol 35 mg/dL (>40); Potassium 4.1 mmol/L (3.3-5.1); Sodium 141 mmol/L (135-145); Total Protein 7.4 g/dL (6.5-8.0); Triglycerides 105 mg/dL (<150)
[2025-01-22 12:26] LABS: Reflex LDLD? No
== END 2025-01-22 10:44 | disposition home or self-care (01) ==
LOC: HO.LAB 10:43
PROVIDERS: PCP Family Medicine; Visit Provider Family Medicine
DX: R73.03 Prediabetes (principal); R03.0 Elevated blood-pressure reading, without diagnosis of hypertension
CPT/HCPCS: 36415; 80053; 80061; 83036

== ENCOUNTER 2025-05-01 07:37 | Emergency (ER) | payer OTHER, SELFPAY ==
--- NOTE | ~2025-05-01 | CT_ITS ---
EXAMINATION: CT ABDOMEN PELVIS WITH IV CONTRAST HISTORY: RLQ pain COMPARISON: Abdominal ultrasound post recent October 2023 and March 2024 and abdominal and pelvic CT October 2017 TECHNIQUE: CT scan of the abdomen and pelvis was performed following administration of 85 mL Omnipaque 350 using standard departmental protocol. Coronal and sagittal reformatted images were generated and reviewed. This CT exam was performed with one or more of the following dose reduction techniques: automated exposure control, adjustment of the mA and/or kV according to patient size, use of iterative reconstruction technique. DLP: 465 mGy-cm FINDINGS: LOWER CHEST: 6 mm peripheral or subpleural right lower lobe nodule adjacent to the major fissure axial image 13 series 4 and 6 mm peripheral or subpleural right middle lobe nodule axial image 22 series 4. These probably represent peripheral or subpleural lymph nodes. Minimal subsegmental atelectasis at the right lung base. CARDIOVASCULATURE: The heart is normal in size. There is no pericardial effusion. LIVER: The liver is normal in size and contour. No liver mass is identified. The hepatic and portal veins are patent. GALLBLADDER / BILE DUCTS: The gallbladder is unremarkable. There is no intra or extrahepatic biliary ductal dilatation. SPLEEN: The spleen is normal in size. No focal splenic lesion is identified. PANCREAS: The pancreas is unremarkable in appearance. ADRENAL GLANDS: Within normal limits. KIDNEYS/RETROPERITONEUM: No renal calculi are identified. There is no hydronephrosis. 7 mm low-attenuation lesion in the posterior medial mid pole of the left kidney for example axial image 39 series 3 and coronal reconstructed image 59 series 6. This is not appreciated on prior CT or ultrasound. There is mild right ureteral dilatation. There is a 3 mm right distal ureteral stone for example coronal image 66 series 6 and axial image 587 series 4. LYMPH NODES: Small mesenteric and retroperitoneal lymph nodes. No enlarged lymph nodes. VASCULATURE: The abdominal aorta is normal in caliber. MESENTERY/PERITONEUM: No free fluid. No masses. There is no free intraperitoneal gas. STOMACH: Normal SMALL BOWEL: The small bowel is normal in caliber. No rotation or wall thickening. COLON: There is a small linear radiopaque density seen in the distal transverse colon for example axial image 20 series 3, axial image 159 series 4 and coronal reconstructed image 29 series 6. Measures 7 mm in length. This may represent something the patient has ingested. The colon is otherwise unremarkable. No dilatation or wall thickening. APPENDIX: Normal. URINARY BLADDER/PELVIC ORGANS: The urinary bladder is unremarkable. The prostate gland does not appear enlarged. BONES / SOFT TISSUES: No suspicious bony or soft tissue abnormalities. Mild degenerative changes of the spine. Small umbilical hernia containing fat. CT/CT abdomen pelvis w IV con IMPRESSION: Mild right ureteral dilatation from a 3 mm right distal ureteral stone. No renal stone or hydronephrosis. 7 mm low-attenuation lesion in the left kidney not appreciated on prior exams. Follow-up renal ultrasound recommended. Normal appendix. 7 mm linear high attenuation density in the distal transverse colon. This probably represents something the patient has ingested. No wall thickening or dilatation to suggest secondary inflammation. 6 mm peripheral or subpleural right middle and right lower lobe pulmonary nodules. These may represent peripheral or subpleural lymph nodes. Consider chest CT follow-up if clinically warranted. Electronically signed by: Vicki Day MD 05/01/2025 11:26 AM EDT
[2025-05-01 07:43] VITALS: BP 166/102; PULSE 68; RESP 18; TEMP 36.7; O2SAT 97
[2025-05-01 07:57] LABS: MANUAL DIFF FLAG NO
[2025-05-01 07:58] LABS: Hematocrit 48.5 % (42.0-52.0); Hemoglobin 14.0 g/dl (14.0-18.0); Imm Gran Abs Auto 0.01 X10*3/uL (0.00-0.03); Imm Gran Pct Auto 0.2 % (0.0-0.4); Lymphocytes Absolute Auto 2.3 X10*3/uL (1.2-4.9); Mean Corpuscular HGB Conc 28.9 g/dl (31.0-36.0); Mean Corpuscular Hemoglobin 21.2 pg (27.0-33.0); Mean Corpuscular Volume 73.4 fL (80.0-98.0); NRBC Abs Auto 0.000 X10*3/uL (0.0-0.012); NRBC Pct Auto 0.0 /100WBC (0.0-0.2); Platelet Count 236 X10*3/uL (160-400); Red Blood Count 6.61 X10*6/uL (4.60-5.80); White Blood Count 5.5 X10*3/uL (4.8-10.8)
--- OUTSIDE RECORDS SUMMARY | 2025-05-01 08:00 | XMS_ITS | Encounter Summary ---
Author Organization [employer] Address [address] [facility] [address] [place] [address] Care Team Providers Care Activity Therapy Specialist Name Role Phone Payal Limon MD Primary Care Provider [phone] Encounter Details Date Type Department Care Team ([facility] st Contact Info) Description 10/14/[address] [facility] MED[facility]INE [address] [place], [place] [phone] Payal Limon MD [address] [place], [place] [phone] Social History Tobacco Use Types Packs/Day Years Used Date Smoking Tobacco: Never Passive Smoke Exposure: Never Smokeless Tobacco: Never Depression Answer Date Recorded Patient Health Questionnaire-9 Score 0 07/27/2022 Housing Stability Answer Date Recorded What is your housing situation today? I have margretsimona aguilar 05/05/[address] you [...] Date Recorded Patient Health Questionnaire-2 Score 0 07/27/2022 Sex and Gender Information Value Date Recorded [...] Noted Time PHQ-9 Depression Total Score: 0 07/27/19 23 3:46 PM EST documented as of this encounter Care Teams Activity Therapy Specialist Relationship Specialty Start Date End Date Payal Limon MD [address] [place] [id number] PCP - General Family Medicine 06/29/12 documented as of this encounter
--- OUTSIDE RECORDS SUMMARY | 2025-05-01 08:00 | XMS_ITS | Patient Health Record ---
Author Organization [facility] Address [address] [place] [address] Care Team Providers Care Councilman Name Role Phone Alayna CAMPUZANO, Anita Primary Care Provider Unavail able Jose Painting Jr Unavailable [phone] Reason For Referral No Information Medications Medication [...] Start Date Coverage End Date MEDICAID OF [employer] [address] [place] [phone] [id number] [id number] [id number] Self - patient is the insured Medical (General) History Medical History History ICD Code Diverticulitis ARF Surgical History Surgery Date(Month/Year) carpal tunnel
--- OUTSIDE RECORDS SUMMARY | 2025-05-01 08:00 | XMS_ITS | Clinical Summary ---
Author Organization [employer] Address [address] [place] [address] [address] [place] [address] Care Team Providers Care Family Law Specialist Name Role Phone Payal Limon MD Primary Care Provider [phone] Allergies Active Allergy Reactions Criticality Noted Date Comments Tadalafil Medium 07/27/2024 Medications Ventolin HFA 108 (90 Base) MCG/ACT inhaler TAKE 2 PUFFS BY MOUTH EVERY 4 -6 HOURS NEEDED FOR DIFFICULTY BREATHING MAX OF 8 PUFFS IN 24 HOURS 2 Active GaviLAX 17 GM/SCOOP powder PLEASE SEE ATTACHED FOR DETAILED DIRECTIONS 3 Active albuterol (2.5 MG/3ML) 0.083% nebulizer solution Take 3 mL (2.5 mg) by nebulization every 4 (four) hours if needed for wheezing or shortness of breath (Maximum 4 treatments per day). 75 mL 1 4 Active Blood Pressure Monitoring (Omron 3 Series BP Monitor) device USE TO CHECK BLOOD PRESSURE ONCE PER DAY AND NEEDED FOR SYMPTOMS 1 each 4 Active pantoprazole (ProtoNix) 40 MG EC tablet TAKE 1 TABLET BY MOUTH ONCE A DAY 90 tablet 1 5 Active Active Problems Problem Noted Date Diagnosed Date Metabolic dysfunction-associ ated steatotic liver disease (MASLD) 05/05/2024 Assessment & Plan (02/03/2025 3:29 PM EDT): - Last liver test: 11/07/23 mildly elevated ALT, otherwise normal - Last US / elastography: 11/05/23 - FIB4 index 0.97 - GI: [facility] - continue working on lifestyle modifications - continue surveillance study Assessment & Plan (07/17/2024 11:34 AM EST): - Last liver test: 11/07/23 mildly elevated ALT, otherwise normal - Last US / elastography: 11/05/23 - FIB4 index 0.97 - GI: [facility] - continue working on lifestyle modifications - continue surveillance study Assessment & Plan (05/05/2024 6:09 AM EDT): - Last liver test: 11/07/23 mildly elevated ALT, otherwise normal - Last US / elastography: 11/05/23 - FIB4 index 0.97 - GI: [facility] - continue working on lifestyle modifications - continue surveillance study Right kidney stone 05/05/2024 Assessment & Plan (01/22/2025 10:05 AM EDT): - asymptomatic - incidental finding on US on 11/15/23 - encourage adequate hydration - will repeat US Assessment & Plan (07/27/2024 11:48 AM EST): - asymptomatic - incidental finding on US on 11/15/23 - encourage adequate hydration - will repeat US in October Assessment & Plan (05/05/2024 6:11 AM EDT): - asymptomatic - incidental finding on US on 11/15/23 - encourage adequate hydration - will repeat US in October Obesity 05/01/2024 Dermatofibroma of back 10/03/2023 H/O colonoscopy 10/03/2023 Right elbow tendinitis 10/03/2023 Erosive esophagitis 04/30/2023 04/30/2023 Assessment & Plan (02/03/2025 3:30 PM EDT): - Hx of H. Pylori s/p eradication with amoxicillin, clarithromycin, and PPI in 2014 - EGD on 02/01/23 small hiatal hernia, erosive esophagitis, gastritis. Negative H. Pylori and celiac disease by biopsy. - repeat EGD 05/20/23 esophagitis, minimal chronic inactive gastritis, active peptic duodenitis with erosion - EGD on 02/22/24 showed chronic inactive esophagitis - continue pantoprazole 40 mg bid Assessment & Plan (07/17/2024 11:34 AM EST): - Hx of H. Pylori s/p eradication with amoxicillin, clarithromycin, and PPI in 2014 - EGD on 02/01/23 small hiatal hernia, erosive esophagitis, gastritis. Negative H. Pylori and celiac disease by biopsy. - repeat EGD 05/20/23 esophagitis, minimal chronic inactive gastritis, active peptic duodenitis with erosion - EGD on 02/22/24 showed chronic inactive esophagitis - continue pantoprazole 40 mg bid Assessment & Plan (05/01/2024 12:24 PM EDT): - Hx of H. Pylori s/p eradication with amoxicillin, clarithromycin, and PPI in 2014 - EGD on 02/01/23 small hiatal hernia, erosive esophagitis, gastritis. Negative H. Pylori and celiac disease by biopsy. - repeat EGD 05/20/23 esophagitis, minimal chronic inactive gastritis, active peptic duodenitis with erosion - EGD on 02/22/24 showed chronic inactive esophagitis - continue pantoprazole 40 mg bid Assessment & Plan (11/12/2023 6:43 PM EDT): - Hx of H. Pylori s/p eradication with amoxicillin, clarithromycin, and PPI in 2014 - EGD on 02/01/23 small hiatal hernia, erosive esophagitis, gastritis. Negative H. Pylori and celiac disease by biopsy. - repeat EGD 05/20/23 esophagitis, minimal chronic inactive gastritis, active peptic duodenitis with erosion - continue pantoprazole 40 mg bid - patient has not followed up with GI after 2nd EGD. Dr. Arias recommended to continue PPI and to repeat EGD in 6 mo. If no improvement, possible lap fundoplication. - patient will call GI to schedule a follow up appointment. Assessment & Plan (04/30/2023 5:44 AM EDT): - s/p EGD on 02/01/23 - continue PPI and H2 nancy - plan to repeat EGD in 3-4mo Dysphagia 04/30/2023 04/30/2023 Constipation 04/30/2023 04/30/2023 Assessment & Plan (07/27/2024 11:47 AM EST): - s/p colonoscopy in Jul 2022, which was normal - fiber-rich diet - judicious use of senna Assessment & Plan (04/30/2023 5:45 AM EDT): - s/p colonoscopy in Jul 2022, which was normal - fiber-rich diet - judicious use of senna Dental calculus 11/30/2022 Epigastric pain 11/04/2022 Assessment & Plan (11/12/2023 6:42 PM EDT): - Hx of H. Pylori s/p eradication with amoxicillin, clarithromycin, and PPI in 2014 - EGD on 02/01/23 showed gastritis, esophagitis, and negative H. Pylori and celiac. Hiatal hernia - Normal colonoscopy in 07/2022 - H. Pylori stool antigen in 10/2022 and 12/2022 showed negative for both tests - continue Pantoprazole 40 mg BID; If no improvement, add famotidine in the evening - Plan to repeat EGD in 6 mo per GI - avoid irritants and NSAIDs Assessment & Plan (04/30/2023 5:42 AM EDT): - Hx of H. Pylori s/p eradication with amoxicillin, clarithromycin, and PPI in 2014 - EGD on 02/01/23 showed gastritis, esophagitis, and negative H. Pylori and celiac. Hiatal hernia - Normal colonoscopy in 07/2022 - H. Pylori stool antigen in 10/2022 and 12/2022 showed negative for both tests - continue Pantoprazole 40 mg BID; If no improvement, add famotidine in the evening - Plan to repeat EGD in 3-4 mo per GI - avoid irritants Assessment & Plan (12/28/2022 10:55 AM EDT): - Hx of H. Pylori s/p eradication with amoxicillin, clarithromycin, and PPI in 2014 - Normal EGD in 2019. Negative H. Pylori - Normal colonoscopy in 07/2022 - H. Pylori stool antigen in 10/2022 and 12/2022 showed negative for both tests - check CMP, CBC - continue Pantoprazole 40 mg BID; If no improvement, add famotidine in the evening - upcoming US and EGD Assessment & Plan (11/05/2022 5:09 AM EDT): - Hx of H. Pylori s/p eradication with amoxicillin, clarithromycin, and PPI in 2014 - Normal EGD in 2018. Negative H. Pylori - Normal colonoscopy in 07/2022 - will check H. Pylori stool antigen again - check CMP, CBC - restart omeprazole 20 mg bid after submitting H. Pylori test; If no improvement, add famotidine in the evening - refer to GI for EGD evaluation Erectile dysfunction 07/28/2022 Assessment & Plan (07/27/2024 11:51 AM EST): -Evaluated by urologist and prescribed tadalafil -Pt had severe reaction to Tadalafil -pt switched urologist and was prescribed Viagra, but it was never picked up. Assessment & Plan (12/28/2022 10:44 AM EDT): -Evaluated by urologist and prescribed tadalafil -Pt has severe reaction to Tadalafil -pt switched urologist and was prescribed Viagra Assessment & Plan (07/28/2022 6:08 AM EST): -Evaluated by urologist and prescribed tadalafil -Pt seems to be using tadalafil prn or unable to afford Prediabetes 07/28/2022 Assessment & Plan (01/22/2025 9:14 AM EDT): -A1C 5.9% on 11/04/22 -A1C 6.1% on 11/07/23 -Continue working on lifestyle modifications Assessment & Plan (07/17/2024 11:34 AM EST): -A1C 5.9% on 11/04/22 -A1C 6.1% on 11/07/23 -Continue working on lifestyle modifications Assessment & Plan (05/01/2024 3:56 PM EDT): -A1C 5.9% on 11/04/22 -A1C 6.1% on 11/07/23 -Continue working on lifestyle modifications Assessment & Plan (11/12/2023 6:45 PM EDT): -A1C 5.9% on 11/04/22 -A1C 6.1% on 11/07/23 -Continue working on lifestyle modifications Assessment & Plan (04/30/2023 5:46 AM EDT): -A1C 5.9% on 11/04/22 -Continue working on lifestyle modifications -Check A1C in 6 mo Assessment & Plan (12/28/2022 10:42 AM EDT): -A1C 5.9% on 11/04/22 -Continue working on lifestyle modifications -Check A1C in 6 mo Assessment & Plan (07/28/2022 6:10 AM EST): -01/19/22 A1C 6.1% -Continue working on lifestyle modifications -Check A1C in 6 mo Prehypertension 12/08/2017 Assessment & Plan (02/03/2025 3:29 PM EDT): -Goal BP < 130/80 per ACC/AHA guideline (Treatment threshold >= 140/90) -Continue working on lifestyle modifications -Continue checking BP at home periodically Assessment & Plan (07/17/2024 11:34 AM EST): -Goal BP < 140/90 per JNC-8 and < 130/80 per ACC/AHA guideline (Treatment threshold >= 140/90) -Continue working on lifestyle modifications -Continue checking BP at home periodically -Follow up in 6 mos, sooner if any problem arises Assessment & Plan (05/01/2024 12:20 PM EDT): -Goal BP < 140/90 per JNC-8 and < 130/80 per ACC/AHA guideline (Treatment threshold >= 140/90) -Continue working on lifestyle modifications -Continue checking BP at home periodically -Follow up in 6 mos, sooner if any problem arises Assessment & Plan (11/12/2023 6:05 PM EDT): -Goal BP < 140/90 per JNC-8 and < 130/80 per ACC/AHA guideline (Treatment threshold >= 140/90) -Continue working on lifestyle modifications -Continue checking BP at home periodically -Follow up in 3 mo, sooner if any problem arises Assessment & Plan (04/30/2023 5:43 AM EDT): -Goal BP < 140/90 per JNC-8 and < 130/80 per ACC/AHA guideline (Treatment threshold >= 140/90) -Continue working on lifestyle modifications -Continue checking BP at home periodically -Follow up in 6-12 mo, sooner if any problem arises Assessment & Plan (12/28/2022 10:38 AM EDT): -Goal BP < 140/90 per JNC-8 and < 130/80 per ACC/AHA guideline (Treatment threshold >= 140/90) -Continue working on lifestyle modifications -Continue checking BP at home periodically -Follow up in 6-12 mo, sooner if any problem arises Assessment & Plan (07/28/2022 6:03 AM EST): -Goal BP < 140/90 per JNC-8 and < 130/80 per ACC/AHA guideline (Treatment threshold >= 140/90) -Continue working on lifestyle modifications -Continue checking BP at home periodically -Follow up in 6-12 mo, sooner if any problem arises Gastroesophageal reflux disease 12/18/2013 Assessment & Plan (02/03/2025 3:30 PM EDT): -Followed by [facility] -Negative H. Pylori stool antigen in 10/2022 and 12/2022 -s/p EGD evaluation several times, most recently on 02/22/24, biopsy result shows chronic inactive esophagitis. Celiac panel was negative for celiac disease -Continue Pantoprazole 40 mg BID, as prescribed by GI Specialist -Avoid irritants Assessment & Plan (07/17/2024 11:34 AM EST): -Followed by [facility] -Negative H. Pylori stool antigen in 10/2022 and 12/2022 -s/p EGD evaluation several times, most recently on 02/22/24, biopsy result shows chronic inactive esophagitis. Celiac panel was negative for celiac disease -Continue Pantoprazole 40 mg BID, as prescribed by GI Specialist -Avoid irritants Assessment & Plan (05/01/2024 12:22 PM EDT): -Followed by [facility] -Negative H. Pylori stool antigen in 10/2022 and 12/2022 -s/p EGD evaluation several times, most recently on 02/22/24, biopsy result shows chronic inactive esophagitis. Celiac panel was negative for celiac disease -Continue Pantoprazole 40 mg BID, as prescribed by GI Specialist -Avoid irritants Assessment & Plan (12/28/2022 10:48 AM EDT): -Followed by [facility] -Negative H. Pylori stool antigen in 10/2022 and 12/2022 -s/p EGD evaluation in 05/29/19, biopsy result shows possibility of celiac disease otherwise normal. Celiac panel was negative for celiac disease -Continue Pantoprazole 40 mg BID, as prescribed by GI Specialist -Scheduled for US and EGD --Recently prescribed famotidine; will reconcile medication -Avoid irritants Assessment & Plan (11/05/2022 5:11 AM EDT): - Followed by [facility] - Hx H Pylori in 2012, s/p eradication treatment with amoxicillin, clarithromycin, and PPI - s/p EGD evaluation in 05/29/19, biopsy result shows possibility of celiac disease otherwise normal. Celiac panel was negative for celiac disease - Continue omeprazole 20 mg bid - Add famotidine 20-40 mg in the evening as needed - Avoid irritants, try healthier diet and eating pattern - control asthma symtpoms Assessment & Plan (07/28/2022 6:06 AM EST): -Followed by [facility] -Hx H Pylori in 2012, s/p treatment -s/p EGD evaluation in 05/29/19, biopsy result shows possibility of celiac disease otherwise normal. Celiac panel was negative for celiac disease -Continue omeprazole 20 mg bid --Recently prescribed famotidine; will reconcile medication -Avoid irritants Thalassemia 03/12/2013 Assessment & Plan (07/27/2024 11:51 AM EST): - microcytosis with out anemia Assessment & Plan (01/04/2023 11:58 AM EDT): - always low MCV, but CBC is normal otherwise Asthma 03/12/2013 Assessment & Plan (01/22/2025 9:14 AM EDT): -Continue albuterol HFA prn -Optimize symptoms of GERD, which can exacerbate cough Assessment & Plan (07/17/2024 11:34 AM EST): -Continue albuterol HFA prn -Optimize symptoms of GERD, which can exacerbate cough Assessment & Plan (05/01/2024 12:22 PM EDT): -Continue albuterol HFA prn -Optimize symptoms of GERD, which can exacerbate cough Assessment & Plan (11/12/2023 6:44 PM EDT): -Continue albuterol HFA prn -Optimize symptoms of GERD, which can exacerbate cough Assessment & Plan (04/30/2023 5:43 AM EDT): -Continue albuterol HFA prn -Optimize symptoms of GERD, which can exacerbate cough Assessment & Plan (01/04/2023 11:57 AM EDT): -Continue albuterol HFA prn Assessment & Plan (11/05/2022 5:09 AM EDT): -Continue albuterol HFA prn Assessment & Plan (07/28/2022 6:03 AM EST): -Continue albuterol HFA prn Resolved Problems Problem Noted Date Diagnosed Date Resolved Date Folliculitis 10/03/2023 01/15/2024 Bleeding gums 11/30/2022 04/30/2023 Overweight 11/04/2022 05/01/2024 Assessment & Plan (11/05/2022 5:13 AM EDT): - work on lifestyle modifications - lipid panel and A1C were ordered in July 2022, but not drawn yet Helicobacter pylori gastroin testinal tract infection 06/19/2015 07/28/2022 Encounters Date Type Department Care Team Description 05/01/2025 Orders Only GENERIC EXTERNAL DATA DEPARTMENT Provider, Generic External Data from Last 3 Months Immunizations Immunization Administration Dates Next Due Hep B, Adolescent or Pediatric 02/09/2007,2006,06/28/2006 Influenza injectable quadriv alent IIV4 with preservative 06/19/2015 Influenza injectable quadriv alent preservative free 07/30/2019,08/01/2018 Influenza, IIV3, injectable 04/10/2014, 0,06/28/2006 Influenza, Injectable, MDCK, preservative free 03/26/2024 Pneumococcal Polysaccharide PPSV23 01/07/2012, TD (adult), 2 Lf tetanus tox oid, preservative free, adsorbed 07/18/2003 Tdap 06/19/2015 Social History Tobacco Use Types Packs/Day Years Used Date Smoking Tobacco: Never Passive Smoke Exposure: Never Smokeless Tobacco: Never Tobacco Cessation:Counseling Given: Not Answered Depression Answer Date Recorded Patient Health Questionnaire-9 Score 0 11/07/2023 Patient Health Questionnaire-9 Score 0 11/07/2023 Last PHQ-9: Questionnaire Data Not on file 0 11/07/2023 Housing Stability Answer Date Recorded What is your housing situation today? I have margret aguilar 01/22/[address] you li ve. Do you have problems with any of the following? None of the above 01/22/2025 Food Insecurity Answer Date Recorded Within the past 12 months, y ou worried that your food would run out before you got money to buy more: Never True 01/22/2025 Within the past 12 months,th e food you bought just didn't last and you didn't have enough money to get more: Never True 02/2025 Transportation Answer Date Recorded In the past 12 months, has l ack of transportation kept you from medical appts, meetings, work or from getting things needed for daily living? No 01/22/2025 Utilities Answer Date Recorded In the past 12 months, has t he electric, gas, oil or water company threatened to shut off services in your home? No 01/22/2025 Depression Answer Date Recorded Patient Health Questionnaire-2 Score 0 05/01/2024 Internet Access Answer Date Recorded Internet Access Q1 Yes 01/22/2025 Internet Access Q2 Not on file 01/22/2025 Sex and Gender Information Value Date Recorded Sex Assigned at Male 05/17/2022 10:17 AM EDT Legal Sex Male 10:17 AM EDT Gender Identity Male 05/17/2022 10:17 AM EDT Sexual Orientation Straight 05/17/2022 10 :17 AM EDT Last Filed Vital Signs Vital Sign Reading Time Taken Comments Blood Pressure 124/82 01/22/2025 9:23 AM EDT Pulse 75 01/22/2025 9:23 AM EDT Temperature 36.3 C (97.4 F) 01/22/2025 9:23 AM EDT Respiratory Rate 18 01/22/2025 9:23 AM EDT Oxygen Saturation 98% 07/17/2024 10:46 AM EST Inhaled Oxygen Concentration - - Weight 80.7 kg (178 lb) 01/22/2025 9:23 AM EDT Height 162.6 cm (5' 4 ) 01/22/2025 9:23 AM EDT Body Mass Index 30.55 01/22/2025 9:23 AM EDT Plan of Treatment Health Maintenance Due Date Last Done Comments CT Colonography 1976 FIT DNA/Cologuard 1976 FIT 1976 FOBT 1976 Sigmoidoscopy 1976 Family Planning (PISQ) 09/22/1991 Hepatitis A Vaccines (1 of 2 - Risk 2-dose series) 09/22/1995 Pneumococcal Vaccine: Pediatrics (0 to 5 Years) and At-Risk Patients (6 to 49) Years (2 of 2 - PCV) 01/06/2013 01/07/2012, 09/19/2007 Dental Prophylaxis 06/03/2023 11/30/2022 Dental Oral Exam 02/11/2024 08/12/2023, 10/12/2022 Dental X-Ray: Bitewings 08/13/2024 08/12/19 24, 11/30/2022, 10/12/2022 Dental X-Ray: Full Mouth 02/12/2025 02/11/2022 COVID-19 Vaccine ( season) 2025 05/24/2022, 07/31/2021, 12/22/2020, Additional history exists Influenza Vaccine (#1) 2025 , 07/30/2019, 08/01/2018, Additional history exists Depression Screening 05/01/2025 05/01/2024, 11/07/19 DTaP/Tdap/Td Vaccines (2 - Td or Tdap) 06/19/2025 06/19/2015, 07/18/2003 Alcohol/Substance Use Screening 07/17/2025 07/17/2024 Diabetes: Hemoglobin A1C 01/22/2026 025, 11/07/2023, 11/04/2022, Additional history exists Disability Screening 01/22/2026 01/22/2025 SDOH Screening 01/22/2026 01/22/2025 Tobacco Screening 01/22/2026 01/22/2025 Zoster Vaccines (1 of 2) 2026 Lipid Panel 01/22/2030 01/22/2025, 10/17, 05/06/2023, Additional history exists Colonoscopy 08/10/2032 08/10/2022 Colorectal Cancer Screening 08/10/2032 RSV Patients and Patients Aged 60 years or older (1 - 1-dose 75+ series) 09/22/2051 Hepatitis B Vaccines Discontinued 02/09/2007, 09/14/2006, 06/28/2006 HIV Screening Completed 08/03/2024, 07/0 11/2021, 01/03/2020 Hepatitis C Screening Completed 08/03/2024 , 01/19/2022, 01/03/2020 HIB Vaccines Aged Out No longer eligi ble based on patient's age to complete this topic HPV Vaccines Aged Out No longer eligi ble based on patient's age to complete this topic IPV Vaccines Aged Out No longer eligi ble based on patient's age to complete this topic Meningococcal B Vaccine Aged Out No l onger eligible based on patient's age to complete this topic Meningococcal Vaccine Aged Out No dg nam eligible based on patient's age to complete this topic RSV under 20 months Aged Out No longe r eligible based on patient's age to complete this topic Rotavirus Vaccines Aged Out No longer eligible based on patient's age to complete this topic Procedures Procedure Name Priority Date/Time Associated Diagnosis Comments CBC WITH AUTO DIFFERENTIAL Routine 05/01/2025 7:53 AM EDT HEMOGLOBIN A1C Routine 01/22/2025 10:52 AM EDT Prediabetes LIPID PANEL WITH REFLEX TO DIRECT LDL Routine 01/22/2025 10:52 AM EDT Prediabetes Prehypertension HEPATITIS C AB W/REFL TO HCV RNA, QN, PCR Routine 08/03/2024 7:49 AM EST Routine screening for STI (sexually transmitted infection) HIV 1/2 ANTIGEN/ANTIBODY, FOURTH GENERATION W/RFL Routine 08/03/2024 7:49 AM EST Routine screening for STI (sexually transmitted infection) BITEWINGS - 4 RADIOGRAPHIC IMAGES Routine 08/12/2023 11:00 AM EST Encounter for dental examination Dental caries Teeth missing PERIODIC ORAL EVALUATION - ESTABLISHED PATIENT Routine 08/12/2023 11:00 AM EST Encounter for dental examination Dental caries Teeth missing PROPHYLAXIS - ADULT Routine 11/30/2022 8 :00 AM EDT HM COLONOSCOPY Routine 08/10/2022 9:17 PM EST from Last 3 Months or Most Recently Relevant to Health Maintenance Results * (ABNORMAL) CBC auto differential (05/01/2025 7:53 AM EDT) White Blood Count 5.5 4.8 - 10.8 X10*3/uL [facility] Red Blood Count 6.61(H) 4.60 - 5.80 X10*6/uL [facility] Hemoglobin 14.0 14.0 - 18.0 g/dl [facility] Hematocrit 48.5 42.0 - 52.0 % [facility] Mean Corpuscular Volume 73.4(L) 80.0 - 98.0 fL [facility] Mean Corpuscular Hemoglobin 21.2(L) 27.0 - 33.0 pg [facility] Mean Corpuscular HGB Conc 28.9(L) 31.0 - 36.0 g/dl [facility] Red Cell Distribution Width 15.1 11.0 - 16.0 % [facility] Platelet Count 236 160 - 400 X10*3/uL [facility] Mean Platelet Volume 9.5 9.4 - 12.4 fL [facility] Neutrophils Percent Auto 45.8 45 - 73 % [facility] Imm Gran Pct Auto 0.2 0.0 - 0.4 % [facility] Lymphocytes Percent Auto 41.5(H) 20 - 40 % [facility] Monocytes Percent Auto 10.3 2 - 11 % [facility] Eosinophils Percent Auto 1.1 0 - 4 % [facility] Basophils Percent Auto 1.1 0 - 2 % [facility] NRBC Pct Auto 0.0 0.0 - 0.2 /100WBC [facility] Neutrophils Absolute Auto 2.5 2.0 - 8.3 x10*3/uL [facility] Imm Gran Abs Auto 0.01 0.00 - 0.03 X10*3/uL [facility] Lymphocytes Absolute Auto 2.3 1.2 - 4.9 X10*3/uL [facility] Monocytes Absolute Auto 0.6 0.1 - 1.2 X10*3/uL [facility] Eosinophils Absolute Auto 0.1 0.0 - 0.4 X10*3/uL [facility] Basophils Absolute Auto 0.1 0.0 - 0.2 X10*3/uL [facility] NRBC Abs Auto 0.000 0.0 - 0.012 X10*3/uL [facility] 05/01/2025 7:53 AM EDT 05/01/2025 7:56 AM EDT us Generic External Data Provider LAB BLOOD ORDERAB LES Final Result Performing Organization Address [facility] Co de Phone Number [facility] [address] [place] [address] [phone] * (ABNORMAL) Lipid Panel with Reflex to Direct LDL (01/22/2025 10:52 AM EDT) Triglycerides 105 <150 mg/dL [facility] Comment:Desirable Triglyceri de: less than 150 mg/dLBorderline High Triglyceride 150-199 mg/dLHigh Triglyceride: 200-499 mg/dLVery High Triglyceride: greater than or equal to 5OO mg/dL Cholesterol 175 <200 mg/dL [facility] Comment:Desirable Cholestero l: less than 200 mg/dLBorderline High Cholesterol: 200-239 mg/dLHigh Cholesterol: greater than 239 mg/dL LDL Cholesterol Calculated 119(H) <100 mg/dL [facility] Comment:Desirable LDL: less than 100 mg/dLNear Optimal/Above Optimal LDL: 110- 129 mg/dLBorderline High LDL: 130-159 mg/dLHigh LDL: 160-189 mg/dLVery High LDL: greater than or equal to 190 mg/dL HDL Cholesterol 35(L) >40 mg/dL [facility] Comment:Desirable HDL: great er than 40 mg/dL Note: This HDL assay may give artificially low results in patients with liver disease. Blood 01/22/2025 10:5 2 AM EDT 01/22/2025 10:52 AM EDT us Payal Limon MD LAB BLOOD ORDERABLES Final Resul t Performing Organization Address [facility]/ZIP Co de Phone Number [facility] [address] [place] [address] [phone] * (ABNORMAL) Hemoglobin A1c (01/22/2025 10:52 AM EDT) Hemoglobin A1c 6.2(H) <6.0 % [facility] Comment:Hemoglobin A1C Refer ence Range Adults: 4.8 - 6.0 % Non diabetic: < 6.0 % Goal: < 7.0 %Additional Action Suggested: > 8.0 %Note: Hemoglobin A1c results are invalid for patients with abnormal amounts of HbF. Blood transfusions may impact the HbA1c concentration in the patient sample. Estimated Average Glucose 131 mg/dL [facility] Comment:eAG = Estimated ave rage glucose which is %A1C expressed asaverage glucose, using the formula of the [id number] Glucose study (ADAG), Diabetes Care, Vol.31,#8,Feb. 2007 Blood Venous blood specimen / Unknown 01/22/2025 10:52 AM EDT 01/22/2025 10:52 AM EDT Payal Limon MD LAB BLOOD ORDERABLES Final Resul t Performing Organization Address [facility] Co de Phone Number [facility] [address] [place] [phone] * Hepatitis C Antibody with Reflex to HCV, RNA, Quantitative, Real-Time PCR (08/03/2024 7:49 AM EST) Hepatitis C Antibody Nonreactive Nonreactive [facility] Comment:Antibodies to HCV no t detected; does not exclude early acuteHCV infection. Blood Venous blood specimen / Unknown 08/03/2024 7:49 AM EST 08/03/2024 7:49 AM EST us Payal Limon MD LAB BLOOD ORDERABLES Final Resul t Performing Organization Address [facility] Co de Phone Number [facility] [address] [place] [phone] * HIV-1/2 Antigen and Antibodies, Fourth Generation, with Reflexes (08/03/2024 7:49 AM EST) HIV AB/AG Nonreactive Nonreactive [facility] Comment:HIV-1 p24 Ag and/or HIV-1/HIV-2 Ab not detected.A test result that is nonreactive does not exclude thepossibility of exposure to or infection with HIV-1 and/orHIV-2. Nonreactive results in this assay for individualswith prior exposure to HIV-1 and/or HIV-2 may be due toantigen and antibody levels that are below the limit ofdetection of this assay.The [place] HIV Ag/Ab Combo assay result andsupplemental assay results should be interpreted inconjunction with the patient's clinical presentation,history and other laboratory results. If the results areinconsistent with clinical evidence, additional testing issuggested to confirm the result. Blood Venous blood specimen / Unknown 08/03/2024 7:49 AM EST 08/03/2024 7:49 AM EST Payal Limon MD LAB BLOOD ORDERABLES Final Resul t Performing Organization Address [facility] de Phone Number [facility] [address] [place] [phone] * Hm Colonoscopy (08/10/2022 9:17 PM EST) [facility] Signature Colonoscopy Normal Normal [facility] Jules Arias MD HEALTH MAINTENANCE Edited Resul t - Final Performing Organization Address [facility] de Phone Number [facility] [address] [place] [phone] from Last 3 Months or Most Recently Relevant to Health Maintenance Insurance [employer] [employer] [place] AD[place] Care Teams Family Law Specialist Relationship Specialty Start Date End Date Payal Limon MD [address] [place] [phone] PCP - General Family Medicine 06/29/12
--- OUTSIDE RECORDS SUMMARY | 2025-05-01 08:00 | XMS_ITS | Encounter Summary ---
Author Organization [facility] Address [address] [facility] 7t [place] [address] Care Team Providers Care Nurse'S Assistant Name Role Phone Payal Limon MD Primary Care Provider [phone] Encounter Details Date Type Department Care Team (Latest Contact Info) Description 07/31/2019 Abstract [facility] CONVERSIONS Dental, Provider, DDS Social History Tobacco Use Types Packs/Day Years Used Date Smoking Tobacco: Never Assessed Sex and Gender Information Value Date Recorded Sex Assigned at Male 05/17/2022 10:17 AM EDT Legal Sex Male 10:17 AM EDT Gender Identity Male 05/17/2022 10:17 AM EDT Sexual Orientation Straight 05/17/2022 10 :17 AM EDT documented as of this encounter Plan of Treatment Not on file documented as of this encounter Visit Diagnoses Not on filedocumented in this encounter Care Teams Nurse'S Assistant Relationship Specialty Start Date End Date Payal Limon MD [address] [place] [phone] PCP - General Family Medicine 06/29/12 documented as of this encounter
--- OUTSIDE RECORDS SUMMARY | 2025-05-01 08:00 | XMS_ITS | Encounter Summary ---
Author Organization [employer] Address [address] [facility] 7[address] [place] [address] Care Team Providers Care Payroll Services Analyst Name Role Phone Payal Limon MD Primary Care Provider [phone] Encounter Details Date Type Department Care Team (Latest Contact Info) Description 07/25/2018 Abstract [facility] CONVERSIONS Dental, Provider, DDS Social History Tobacco [...] on filedocumented in this encounter Care Teams Payroll Services Analyst Relationship Specialty Start Date End Date Payal Limon MD [address] [place] [phone] PCP - General Family Medicine 06/29/12 documented as of this encounter
--- OUTSIDE RECORDS SUMMARY | 2025-05-01 08:00 | XMS_ITS | Encounter Summary ---
Author Organization [employer] Address [address] [facility] 7t [place] [address] Care Team Providers Care Procedural Nurse Name Role Phone Payal Limon MD Primary Care Provider [phone] Encounter Details Date Type Department Care Team ([facility] st Contact Info) Description 11/16/2023 Orders Only [facility] MEDICINE [address] [place], [place] [phone] Payal Limon MD [address] [place], [place] [phone] Social History Tobacco Use Types Packs/Day Years [...] documented as of this encounter Care Teams Procedural Nurse Relationship Specialty Start Date End Date Payal Limon MD [address] [place] [address] PCP - General Family Medicine 06/29/12 documented as of this encounter
--- OUTSIDE RECORDS SUMMARY | 2025-05-01 08:00 | XMS_ITS | Encounter Summary ---
Author Organization [facility] Address [address] [address] [place] [address] Care Team Providers Care Kitchen Bath Designer Name Role Phone Payal Limon MD Primary Care Provider [phone] Encounter Details Date Type Department Care Team (Latest Contact Info) Description 10/24/2020 Abstract [facility] CONVERSIONS Dental, Provider, DDS Social History [...] on filedocumented in this encounter Care Teams Kitchen Bath Designer Relationship Specialty Start Date End Date Payal Limon MD [address] [place] [address] PCP - General Family Medicine 06/29/12 documented as of this encounter
--- OUTSIDE RECORDS SUMMARY | 2025-05-01 08:00 | XMS_ITS | Encounter Summary ---
Author Organization [employer] Address [address] [place] [address] 7t [place] [address] Care Team Providers Care High Lead Yarder Name Role Phone Payal Limon MD Primary Care Provider [phone] Reason for Referral * Imaging (Routine) - Closed Specialty Diagnoses / Procedures Referred By Contac t Referred To Contact Radiology Diagnoses Elevated ALT measurement Dysphagia, unspecified type Procedures US Abdomen Complete Payal Limon MD [address] [place] [address] Phone: tel: fax: [address] Phone: tel: fax: Referral ID Status Reason Start Date Expiration Date Visits Re quested Visits Authorized [id number] Closed 11/08/2023 11/07/2024 1 1 Encounter Details Date Type Department Care Team (Late st Contact Info) Description 11/08/2023 Orders Only [facility] [address] [place], [place] [phone] Payal Limon MD [address] [place] [address] Elevated ALT measurement (Primary Dx); Dysphagia, unspecified type Social History Tobacco Use Types Packs/Day Years [...] on file documented as of this encounter Procedures Procedure Name Priority Date/Time Associated Diagnosis Comments US ABDOMEN COMPLETE Routine 11/15/2023 8 :51 AM EDT Elevated ALT measurement Dysphagia, unspecified type documented in this encounter Results * US Abdomen Complete (11/15/2023 8:51 AM EDT) Anatomical Region Laterality Modality Abdomen Ultrasound 11/15/2023 8:51 AM EDT Narrative 11/16/2023 9:07 AM EDT [address] [address] Ultrasound Report Signed Patient: Jony Ryan MR# : [id number] : 1975 Acct:[id number] Age/Sex: 48 / M ADM Date: 11/15/23 Loc: HO.US Attending Dr: Payal Limon MD Ordering Physician: Payal Limon MD Date of Service: 11/15/23 Procedure(s): US abdomen complete Accession Number(s): [id number] cc: Payal Limon MD EXAMINATION: US ABDOMEN COMPLETE CLINICAL INFORMATION: Transaminitis. Abdominal discomfort. COMPARISON: Ultrasound abdomen complete 01/03/2023. CT abdomen and pelvis 10/20/2017. TECHNIQUE: Real-time imaging of the abdominal viscera. FINDINGS: PANCREAS: Obscured by bowel gas. ABDOMINAL AORTA: Visualized portions are normal in caliber. INFERIOR VENA CAVA: Visualized portions are normal. LIVER: The liver is normal in size. The liver contour is normal. There is diffuse increased liver parenchymal echogenicity, consistent with hepatic steatosis. No focal hepatic lesion. There is no intrahepatic biliary duct dilatation seen. GALLBLADDER: Normal. The gallbladder is physiologically distended without evidence of stones, sludge, polyps, wall thickening or pericholecystic fluid. COMMON BILE DUCT: Normal in caliber measuring 0.3 cm in diameter. RIGHT KIDNEY: No hydronephrosis or focal parenchymal lesions. The kidney measures 10.4 cm in maximum dimension. Possible 4 mm nonobstructing calculus in the mid kidney. LEFT KIDNEY: Normal. No hydronephrosis. No renal calculi or focal parenchymal lesions. The kidney measures 10.8 cm in maximum dimension. SPLEEN: Normal. The spleen measures 11.0 cm in maximum dimension. FREE FLUID: None. US/US abdomen complete IMPRESSION: Hepatic steatosis. Possible 4 mm nonobstructing calculus in the mid right kidney which is new compared to prior ultrasound and CT. This could potentially be artifact. There is no hydronephrosis. Dictated By: Siddhartha Ferguson MD Signed By: <Electronically signed by Siddhartha Ferguson MD in [place]> 11/16/23 0903 DD/ 0851 TD/TT: Data Coder Operator: [email or web address] Procedure Note Donotuseinterpreter, Image - 11/16/[address] [address] Ultrasound Report Signed Patient: Jony Ryan MMR# : [id number] : 1975Acct:[id number] Age/Sex: 48 / MADM Date: 11/15/23 Loc: HO.US Attending Dr: Payal Limon MD Ordering Physician: Payal Limon MD Date of Service: 11/15/23 Procedure(s): US abdomen complete Accession Number(s): [id number] cc: Payal Limon MD EXAMINATION: US ABDOMEN COMPLETE CLINICAL INFORMATION: Transaminitis. Abdominal discomfort. COMPARISON: Ultrasound abdomen complete 01/03/2023. CT abdomen and pelvis 10/20/2017. TECHNIQUE: Real-time imaging of the abdominal viscera. FINDINGS: PANCREAS: Obscured by bowel gas. ABDOMINAL AORTA: Visualized portions are normal in caliber. INFERIOR VENA CAVA: Visualized portions are normal. LIVER: The liver is normal in size. The liver contour is normal. There is diffuse increased liver parenchymal echogenicity, consistent with hepatic steatosis. No focal hepatic lesion. There is no intrahepatic biliary duct dilatation seen. GALLBLADDER: Normal. The gallbladder is physiologically distended without evidence of stones, sludge, polyps, wall thickening or pericholecystic fluid. COMMON BILE DUCT: Normal in caliber measuring 0.3 cm in diameter. RIGHT KIDNEY: No hydronephrosis or focal parenchymal lesions. The kidney measures 10.4 cm in maximum dimension. Possible 4 mm nonobstructing calculus in the mid kidney. LEFT KIDNEY: Normal. No hydronephrosis. No renal calculi or focal parenchymal lesions. The kidney measures 10.8 cm in maximum dimension. SPLEEN: Normal. The spleen measures 11.0 cm in maximum dimension. FREE FLUID: None. US/US abdomen complete IMPRESSION: Hepatic steatosis. Possible 4 mm nonobstructing calculus in the mid right kidney which is new compared to prior ultrasound and CT. This could potentially be artifact. There is no hydronephrosis. Dictated By: Siddhartha Ferguson MD Signed By: <Electronically signed by Siddhartha Ferguson MD in [place]> 11/16/23 0903 DD/ 0851 TD/TT: Data Coder Operator: DESMOND us Payal Limon MD IMG US PROCEDURES Final Result documented in this encounter Visit Diagnoses Diagnosis Elevated ALT measurement- Primary Dysphagia, unspecified type documented in this encounter Additional Health Concerns Assessment Noted Time PHQ-9 Depression Total Score: 0 11/07/19 24 11:02 AM EDT documented as of this encounter Care Teams High Lead Yarder Relationship Specialty Start Date End Date Payal Limon MD [address] [place] [address] PCP - General Family Medicine 06/29/12 documented as of this encounter
[2025-05-01 08:12] LABS: Alanine Aminotransferase 33 U/L (0-40); Albumin Level 4.6 g/dL (3.5-5.0); Alkaline Phosphatase 68 U/L (39-117); Anion Gap 11 (12-20); Aspartate Amino Transferase 28 U/L (5-37); Blood Urea Nitrogen 10 mg/dL (9-16); Calcium 9.4 mg/dL (8.4-10.2); Carbon Dioxide 27 mmol/L (22-29); Chloride 107 mmol/L (96-108); Creatinine Clr Calc Pharmacy 80.8; Estimated Glomerular Filt Rate > 60; Lipase 105 U/L (8-78); Potassium 4.0 mmol/L (3.3-5.1); Sodium 141 mmol/L (135-145); Total Protein 7.6 g/dL (6.5-8.0)
[2025-05-01 08:21] LABS: Appearance Urine Cloudy; Glucose Urine UA Negative (Negative); PH 5.5 (5.0-9.0); Specific Gravity - Urine >= 1.030 (1.005-1.025); UMIC TRIGGER UACC YES
--- NOTE | 2025-05-01 09:09 | ED.ABDPAIN ---
HPI - Abdominal Pain General Chief Complaint: Abdominal Pain Stated Complaint: R sided abd pain Time Seen by Provider: 05/01/25 10:36 Source: patient and RN notes reviewed Mode of arrival: ambulatory Limitations: no limitations History of Present Illness ED Provider: Yessenia Gonzales PA-C HPI narrative: This is a 49 year old male, with no known medical problems, presents to the ED for evaluation of lower right sided flank and abdominal pain which started this morning. This patient reports 3 hour history of lower right sided flank pain described as sharp and stabbing in nature, slightly radiating to the back. Patient does not report a past medical history. Patient does report a similar, less extreme pain, occurring 4 days prior on 04/27/25. Patient denies any nausea, vomiting, diarrhea, or constipation, with last bowel movement being yesterday. Patient denies dark or black stools. Patient additionally denies any other abdominal pain, chest pain, shortness of breath, and headache. He denies any urinary symptoms. No history of any abdominal surgeries in the past. No other complaints or concerns at this time. MD elicited complaint: abdominal pain and flank pain Pertinent past history: none Onset (ago): day(s) Pain Consistency: constant Location: none Quality: aching Radiation: none Migration to: no migration Exacerbating factors: nothing Relieving factors: nothing Associated symptoms: denies other symptoms Related Data Home Medications ?Medication ?Instructions ?Recorded ?Confirmed albuterol sulfate 90 mcg/actuation 2 puff PO Q4-6H PRN dyspnea 02/23/22 08/02/24 aerosol inhaler (ProAir HFA) Previous Rx's ?Medication ?Instructions ?Recorded naproxen 500 mg tablet (Naprosyn) 500 mg PO BID PRN pain #20 tabs 12/07/22 sennosides 8.6 mg tablet (Senna 17.2 mg (2 x 8.6 mg) PO BEDTIME 01/06/23 Laxative) #60 tabs pantoprazole 40 mg tablet,delayed 40 mg PO TID 90 days #270 tabs 03/29/24 release (Protonix) prednisone 20 mg tablet 20 mg PO DAILY 5 days #5 tabs 05/01/25 tamsulosin 0.4 mg capsule 0.4 mg PO DAILY 14 days #14 caps 05/01/25 Allergies Allergy/AdvReac Type Severity Reaction Status Date / Time No Known Allergies Allergy Verified 05/01/25 07:44 Review of Systems Review of Systems Constitutional : No Fever, No Chills ENT/Mouth : No sore throat, No Rhinorrhea Eyes: No Eye Pain, No Swelling, No Redness Cardiovascular : No Chest Pain, No SOB Respiratory : No Cough, No Sputum Gastrointestinal : No Nausea, No Vomiting, No Diarrhea, No abdominal Pain Genitourinary : No Dysuria, No Hematuria Musculoskeletal : No joint pain, No Myalgias, No Joint Swelling Skin : No Skin Lesions Neuro : No Weakness, No Numbness, No Headache All other systems reviewed and are negative Yes all other systems are reviewed and are negative Constitutional: Reports as per HPI FOR[facility]LY [facility] Past Medical History Medical History (Updated 05/02/25 @ 00:00 by Julián Sun) Acute renal failure Depression Thalassemia Asthma Umbilical hernia History of diverticulitis Dyspepsia Abdominal distension, gaseous GERD (gastroesophageal reflux disease) Abnormal CT of the abdomen Surgical History Hx of colonoscopy H/O inguinal hernia repair S/P ORIF (open reduction internal fixation) fracture H/O esophagogastroduodenoscopy Social History Social History Are you a primary critical care physician assistant to a significant other at home: No Do you presently have visiting nurse or other home services: No Alcohol intake: never Patient Tobacco Use Status: Never used Tobacco Second Hand Smoke Exposure: No Physical Exam ED Vital Signs: Vital Signs - 24 hr 05/01/25 07:43 05/01/25 09:10 05/01/25 11:14 Temperature 98.1 F 98.0 F Pulse Rate 68 54 62 Respiratory Rate 18 18 18 Blood Pressure 166/102 H 129/70 124/81 Pulse Oximetry 97 96 98 Oxygen Delivery Method Room Air Room Air Room Air 05/01/25 14:22 Temperature 98.0 F Pulse Rate 62 Respiratory Rate 18 Blood Pressure 124/81 Pulse Oximetry 98 Oxygen Delivery Method Room Air BMI result Body Mass Index 30.0 Const General: cooperative, healthy appearing, alert and awake Orientation/consciousness: patient oriented x3 Limitations: no limitations HENMT Head: Yes normal to inspection, Yes normocephalic and Yes atraumatic Ears: hearing grossly normal bilaterally General nose exam: Normal external nose present Face and sinus: Yes normal facial exam Mouth: Normal oral and palatal mucosa present, oropharynx normal and moist mucous membranes Throat: Yes posterior oropharynx normal Eyes General: appearance normal, both eyes and all related structures Eyelids: Yes eyelids normal Conjunctivae: conjunctivae normal Sclerae: sclerae normal Pupils: Equal, round and reactive pupils present EOM: EOMs intact bilaterally Neck Neck: Yes normal visual inspection, Yes full ROM and Yes no lymphadenopathy Lymphatic: no lymphadenopathy noted Chest Chest palpation & inspection: normal inspection of the chest Resp Effort & Inspection: normal respiratory effort and able to speak in complete sentences Auscultation: clear to auscultation bilaterally, no crackles, no rales, no rhonchi and no wheezes Cardio Rate: regular rate Rhythm: regular rhythm Heart sounds: S1 normal heart sound present and S2 normal heart sound present GI Other: Abdomen is soft, nontender, nondistended Inspection: Yes normal to inspection Palpation (GI): Soft to palpation and nontender Auscultation: normal bowel sounds General: Yes no CVA tenderness Back/Spine/Pelvis Other: right sided flank tenderness to palpation Back: no CVA tenderness Skin General skin exam: no rashes or lesions noted Trauma: no lacerations or abrasions Wounds: no wounds Neuro General: patient oriented x3 Cranial nerves: Yes Equal, round and reactive pupils present Extrem General: Yes normal to inspection Right upper extremity: normal to inspection Left upper extremity: normal to inspection Right lower extremity: normal to inspection Left lower extremity: normal to inspection Course Course Course Narrative: 49 yo male with PMH of constipation, GERD, diverticulitis, hx of hernia repair no other abdominal surgeries here with abd pain since this AM. No n/v/d, no pain with peeing. No fevers. He feels no bulge or mass in RLQ. He notes it hurts past two days but much worse this AM. He was able to eat dinner last night. Labs and likely imaging needed. this is a RAPID medical screening exam the rest of the history and physical exam is to be done by the main provider. LALO 05/01/25 910am Medical Decision Making Medical Decision Making [facility] Narrative: This is a 49 year old male presents to the ED for evaluation of lower right sided flank and abdominal pain. Most likely diagnosis at this time is nephrolithiasis due to the right sided flank pain, but less likely due to the lack of urinary symptoms such as burning, urgency, or frequency. Pyelonephritis or acute UTI was considered due to localized right sided flank pain, but less likely due to lack of systemic symptoms such as fever or chills as well as lacking urinary symptoms. No CVA tenderness. Small bowel obstruction considered due to abdominal distension and left sided abdominal pain, but less likely without nausea, vomiting, or constipation. Also considered appendicitis however no right lower abdominal pain, no rebound or guarding. Musculosksletal strain considered due to localized right sided pain that is reproducible on exam, but less likely without injury. 11:54 AM 05/01/2025 (Yessenia Gonzales PA-C): Labs returned, he has no leukocytosis, stable H&H, chemistry revealing no significant electrolyte derangement. Urine with high specific gravity, large blood, trace leuk esterases, and rbc's greater than 20. CT revealing mild right ureteral dilatation from a 3 mm right distal ureteral stone. No renal stone or hydronephrosis. Normal appendix, there is a 7 mm linear high attenuation density in the distal colon, likely something that patient has ingested. >>Discussed with surgical service, will likely pass. Urology consult recommending flomax and prednisone. Given returrn precautions. He is feeling well. pain managed. Spoke to Dr. Rizo, recommending prednisone 20 milligrams for 5 days as well as tamsulosin 14 days, and patient can follow-up outpatient. Pt stable for d.c. Differential Diagnosis Differential Diagnoses: The differential diagnosis associated with the presentation includes Admission/Observation Consideration of admission/observation: Escalation of care including admission/observation considered Lab Data [facility] Lab Attestation statement: I reviewed the patient's lab results. See MDM 05/01/25 07:53 05/01/25 07:53 Labs: Lab Results 05/01/25 05/01/25 Range/Units 07:53 08:13 WBC 5.5 (4.8-10.8) X10*3/uL RBC 6.61 H (4.60-5.80) X10*6/uL Hgb 14.0 (14.0-18.0) g/dl Hct 48.5 (42.0-52.0) % MCV 73.4 L (80.0-98.0) fL MCH 21.2 L (27.0-33.0) pg MCHC 28.9 L (31.0-36.0) g/dl RDW 15.1 (11.0-16.0) % Plt Count 236 (160-400) X10*3/uL MPV 9.5 (9.4-12.4) fL Immature Gran % (Auto) 0.2 (0.0-0.4) % Neut % (Auto) 45.8 (45-73) % Lymph % (Auto) 41.5 H (20-40) % [place] % (Auto) 10.3 (2-11) % Eos % (Auto) 1.1 (0-4) % Baso % (Auto) 1.1 (0-2) % Lymph # (Auto) 2.3 (1.2-4.9) X10*3/uL [place] # (Auto) 0.6 (0.1-1.2) X10*3/uL Eos # (Auto) 0.1 (0.0-0.4) X10*3/uL Baso # (Auto) 0.1 (0.0-0.2) X10*3/uL Abs Immat Gran (auto) 0.01 (0.00-0.03) X10*3/uL Absolute Neuts (auto) 2.5 (2.0-8.3) x10*3/uL Absolute Nucleated RBC 0.000 (0.0-0.012) X10*3/uL Nucleated RBC % (auto) 0.0 (0.0-0.2) /100WBC Sodium 141 (135-145) mmol/L Potassium 4.0 (3.3-5.1) mmol/L Chloride 107 (96-108) mmol/L Carbon Dioxide 27 (22-29) mmol/L Anion Gap 11 L (12-20) BUN 10 (9-16) mg/dL Creatinine 1.10 (0.5-1.4) mg/dL Estim Creat Clear Calc 80.8 Estimated GFR > 60 Random Glucose 111 (60-115) mg/dL Calcium 9.4 (8.4-10.2) mg/dL Total Bilirubin 0.4 (0.0-1.0) mg/dL Direct Bilirubin 0.2 (0.0-0.5) mg/dL AST 28 (5-37) U/L ALT 33 (0-40) U/L Alkaline Phosphatase 68 (39-117) U/L Total Protein 7.6 (6.5-8.0) g/dL Albumin 4.6 (3.5-5.0) g/dL Lipase 105 H (8-78) U/L Urine Color Dark Yellow Urine Appearance Cloudy Urine pH 5.5 (5.0-9.0) Ur Specific [place] >= 1.030 H (1.005-1.025) Urine Protein 30 (1+) H (Neg-Trace) mg/dL Urine Glucose (UA) Negative (Negative) mg/dL Urine Ketones Trace (Negative) mg/dL Urine Blood Large (3+) H (Negative) Urine Nitrite Negative (Negative) Ur Leukocyte Esterase Trace H (Negative) Urine RBC >20 H (0-2) /HPF Urine WBC 0-5 (0-5) /HPF Ur Squamous Epith Cells 0-2 (0-2) /HPF Urine Bacteria None Seen (None Seen) Hyaline Casts 3-5 (0-2) /LPF Radiology Impression Discussion of test interpretation with radiology: I have reviewed the radiologist's reading. Radiologist Impression: [place] [id number] CT Scan Report Signed Patient: Jony Ryan MR#: [id number] : 1975 Acct:[id number] Age/Sex: 49 / M ADM Date: 05/01/25 Loc: .ED Attending Dr: Ordering Physician: Preeti Rodriguez DO Date of Service: 05/01/25 Procedure(s): CT abdomen pelvis w IV con Accession Number(s): [id number] cc: Preeti Rodriguez DO; Payal Limon MD~ Report Number: [id number]: Total DLP = 465.00 mGy-cm Reason for Exam: RLQ pain EXAMINATION: CT ABDOMEN PELVIS WITH IV CONTRAST HISTORY: RLQ pain COMPARISON: Abdominal ultrasound post recent October 2023 and March 2024 and abdominal and pelvic CT October 2017 TECHNIQUE: CT scan of the abdomen and pelvis was performed following administration of 85 mL Omnipaque 350 using standard departmental protocol. Coronal and sagittal reformatted images were generated and reviewed. This CT exam was performed with one or more of the following dose reduction techniques: automated exposure control, adjustment of the mA and/or kV according to patient size, use of iterative reconstruction technique. DLP: 465 mGy-cm FINDINGS: LOWER CHEST: 6 mm peripheral or subpleural right lower lobe nodule adjacent to the major fissure axial image 13 series 4 and 6 mm peripheral or subpleural right middle lobe nodule axial image 22 series 4. These probably represent peripheral or subpleural lymph nodes. Minimal subsegmental atelectasis at the right lung base. CARDIOVASCULATURE: The heart is normal in size. There is no pericardial effusion. LIVER: The liver is normal in size and contour. No liver mass is identified. The hepatic and portal veins are patent. GALLBLADDER / BILE DUCTS: The gallbladder is unremarkable. There is no intra or extrahepatic biliary ductal dilatation. SPLEEN: The spleen is normal in size. No focal splenic lesion is identified. PANCREAS: The pancreas is unremarkable in appearance. ADRENAL GLANDS: Within normal limits. KIDNEYS/RETROPERITONEUM: No renal calculi are identified. There is no hydronephrosis. 7 mm low-attenuation lesion in the posterior medial mid pole of the left kidney for example axial image 39 series 3 and coronal reconstructed image 59 series 6. This is not appreciated on prior CT or ultrasound. There is mild right ureteral dilatation. There is a 3 mm right distal ureteral stone for example coronal image 66 series 6 and axial image 587 series 4. LYMPH NODES: Small mesenteric and retroperitoneal lymph nodes. No enlarged lymph nodes. VASCULATURE: The abdominal aorta is normal in caliber. MESENTERY/PERITONEUM: No free fluid. No masses. There is no free intraperitoneal gas. STOMACH: Normal SMALL BOWEL: The small bowel is normal in caliber. No rotation or wall thickening. COLON: There is a small linear radiopaque density seen in the distal transverse colon for example axial image 20 series 3, axial image 159 series 4 and coronal reconstructed image 29 series 6. Measures 7 mm in length. This may represent something the patient has ingested. The colon is otherwise unremarkable. No dilatation or wall thickening. APPENDIX: Normal. URINARY BLADDER/PELVIC ORGANS: The urinary bladder is unremarkable. The prostate gland does not appear enlarged. BONES / SOFT TISSUES: No suspicious bony or soft tissue abnormalities. Mild degenerative changes of the spine. Small umbilical hernia containing fat. CT/CT abdomen pelvis w IV con IMPRESSION: Mild right ureteral dilatation from a 3 mm right distal ureteral stone. No renal stone or hydronephrosis. 7 mm low-attenuation lesion in the left kidney not appreciated on prior exams. Follow-up renal ultrasound recommended. Normal appendix. 7 mm linear high attenuation density in the distal transverse colon. This probably represents something the patient has ingested. No wall thickening or dilatation to suggest secondary inflammation. 6 mm peripheral or subpleural right middle and right lower lobe pulmonary nodules. These may represent peripheral or subpleural lymph nodes. Consider chest CT follow-up if clinically warranted. Electronically signed by: Vicki Day MD 05/01/2025 11:26 AM EDT RP Dictated By: Vicki Day MD External Record Review External record reviewed: Inpatient record, Office record, Outpatient record, Prior outpatient labs, Prior outpatient radiology, Primary care record and Outside ED record Medications Administered Discontinued Medications Generic Name Dose Route Start Last Admin Trade Name Freq PRN Reason Stop Dose Admin Iohexol 85 ml 05/01/25 11:02 05/01/25 11:03 Iohexol 350 Mg/Ml 100 Ml Infus..Btl IV 05/01/25 11:03 85 ml ONCE ONE Administration Ketorolac Tromethamine 15 mg 05/01/25 10:28 05/01/25 11:16 Ketorolac Tromethamine 15 Mg/Ml Vial IVPUSH 05/01/25 10:29 15 mg ONCE ONE Administration Discharge Plan Discharge Clinical Impression: Nephrolithiasis, Abnormal CT scan Patient Disposition: Home, Self-Care Instructions: Kidney Stones (ED), Low Oxalate Diet (ED) Additional Instructions: You were seen in the emergency department due to a kidney stone. You will likely pass this kidney stone with the help of 2 different medications. Tamsulosin is a medication that helps dilate your ureters. Prednisone can help decrease inflammation. Take these medications as prescribed. Please follow-up with urologist, call to make an appointment. Also on your CAT scan there was a 7 mm linear density in your colon, you will likely excrete this through your stool. Of note you also have some pulmonary nodules, please follow-up with your primary care physician regarding this finding. You also have a 7 mm lesion in your left kidney, this will be followed by the urologist. If any new or worsening symptoms occur including but not limited to high fevers, severe chest pain, shortness of breath, nausea, vomiting, or diarrhea, please seek emergent care. Prescriptions: New tamsulosin 0.4 mg capsule 0.4 mg PO DAILY 14 Days Qty: 14 0RF prednisone 20 mg tablet 20 mg PO DAILY 5 Days Qty: 5 0RF No Action naproxen [Naprosyn] 500 mg tablet 500 mg PO BID PRN (Reason: pain) Qty: 20 0RF albuterol sulfate [ProAir HFA] 90 mcg/actuation HFA aerosol inhaler 2 puff PO Q4-6H PRN (Reason: dyspnea) pantoprazole [Protonix] 40 mg tablet,delayed release (DR/EC) 40 mg PO TID 90 Days Qty: 270 1RF sennosides [Senna Laxative] 8.6 mg tablet 17.2 mg PO BEDTIME Qty: 60 6RF Referrals: [facility] – [place] Urology Services [Provider Group, Urology] Interventions: ED Discharge Assessment Last Done: 05/01/25 14:22 Discharge Date/Time: 05/01/25 14:22 Print Language: Lithuanian
[2025-05-01 09:10] VITALS: BP 129/70; PULSE 54; RESP 18; O2SAT 96
--- NOTE | 2025-05-01 09:10 | PC.NURSE ---
Being seen by MD in triage
[2025-05-01] MEDS: iohexoL 350 MG/ML 100 ML INFUS..BTL 85 ML IV (11:03)
[2025-05-01 11:14] VITALS: BP 124/81; PULSE 62; RESP 18; TEMP 36.7; O2SAT 98
--- NOTE | 2025-05-01 11:23 | PC.NURSE ---
pt is alert and oriented, skin appropriate for ethnicity, respirations even and unlabored, pt reports around 0600 started with right mid abd pain denies n/v/d and denies urinary symptoms, vs stable
--- NOTE | 2025-05-01 12:59 | PM.EVENT ---
Event Note Date of Service: 05/01/25 Event Note: 49-year-old male admitted to the emergency department for right flank pain and have kidney stones. General surgery consulted for Incidental finding of a small 7 mm linear high attenuation density in the distal transverse colon. He denies any left-sided abdominal pain, is passing gas and stool as at baseline. This is likely something that the patient ingested and will likely pass with defecation. No intervention needed, patient can be discharged per emergency department recommendations Time Spent With Patient Time: Total time managing care of this patient today ____ minutes.
[2025-05-01 14:22] VITALS: BP 124/81; PULSE 62; RESP 18; TEMP 36.7; O2SAT 98
== END 2025-05-01 14:22 | disposition home or self-care (01) ==
PROVIDERS: Emergency Provider Emergency Medicine; PCP Family Medicine
DX: N20.0 Calculus of kidney (principal); R10.A1 Flank pain, right side
CPT/HCPCS: 36415; 74177; 80048; 80076; 81001; 83690; 85025; 96374; 99284; 99285; J1885; Q9967

== ENCOUNTER → 2025-05-01 10:28 | Outpatient (BNV) | payer OTHER, SELFPAY | PROVIDERS: Emergency Provider Emergency Medicine; PCP Family Medicine; Visit Provider Radiology Diagnostic Radiology | DX: R93.422 Abnormal radiologic findings on diagnostic imaging of left kidney (principal); N20.1 Calculus of ureter | CPT/HCPCS: 74177 ==

== ENCOUNTER 2025-05-06 09:08 | Outpatient (REF) | payer OTHER, SELFPAY ==
[2025-05-06 09:58] LABS: Hemoglobin A1C 151.3294 umol/L
== END 2025-05-06 09:09 | disposition home or self-care (01) ==
LOC: HO.LAB 09:08
PROVIDERS: PCP Family Medicine; Visit Provider Family Medicine
DX: R73.03 Prediabetes (principal)
CPT/HCPCS: 36415; 83036

== ENCOUNTER 2025-06-28 15:33 | Outpatient (AMB) | payer OTHER, SELFPAY ==
--- NOTE | 2025-06-28 15:45 | A.OFFVIS_ITS ---
Intake Visit Reasons: Follow up/Stone(set) Intake Note: Reason for Visit: Stone Follow up Urology Meds: Tamsulosin Blood Thinners: None Labs: None Imaging: Abdomen/Pelvis CT- 05/01/2025 Last PVR: None Allergies No Known Allergies Allergy (Verified 05/01/25 07:44) HPI Comments Details: Jony is a very pleasant male. He is a patient of Dr. Limon. They are seen in the office today for the following urologic conditions. - erectile dysfunction - nephrolithiasis Has not been seen in 3 years Now diabetic Here for Stone follow-up - seen in emergency room in April for distal right ureteric stone Recommend dietary changes, increased fluid Six-month follow-up repeat imaging Nephrolithiasis April evaluation in emergency room Imaging 3 mm distal right ureteric stone Medical expulsion therapy successful Erectile dysfunction:? He presents today for?further evaluation of erectile dysfunction.? Symptoms have been present for/since?Ongoing.? Current treatment includes?daily tadalafil 5mg ? At this time he experiences erections?are partial and adequate for vaginal penetration, that undergo rapid detumesence after penetration, INDIO 12- 16 Mild-Moderate ED.? Nocturnal erections?do occur.? Currently they are?in a stable relationship Laboratory investigations 09/08 testosterone 578, creatinine 1.01, HbA1c 5.8, ? Associated problems? hypertension ?No ? diabetes ?No ? dyslipidemia ?No ? depression ?No ? stress ?No ? decreased libido ?No ? pelvic surgery ?No ? Overall he is ?is not satisfied with the current management.? Therapeutic plan includes?continue with tadalafil 5 mg PFSH Medical History (Updated 06/28/25 @ 16:12 by Nba Rizo MD) Acute renal failure Depression Thalassemia Asthma Umbilical hernia History of diverticulitis Dyspepsia Abdominal distension, gaseous GERD (gastroesophageal reflux disease) Abnormal CT of the abdomen Surgical History Hx of colonoscopy H/O inguinal hernia repair S/P ORIF (open reduction internal fixation) fracture H/O esophagogastroduodenoscopy Social History Are you a primary patient centered care specialist to a significant other at home: No Do you presently have visiting nurse or other home services: No Alcohol intake: never Patient Tobacco Use Status: Never used Tobacco Second Hand Smoke Exposure: No Review of Systems Const Denies chills and Denies fever(s) Card Reports no additional complaints and Denies syncope Resp Denies cough GI Denies abdominal pain and Denies heartburn Reports as per HPI and Denies change in libido Neuro Denies syncope Psych Denies change in libido Endo Denies change in libido Physical Exam Const General: cooperative, healthy appearing, comfortable and no acute distress Orientation/consciousness: patient oriented x3 HEENT Face and sinus: Yes normal facial exam Mouth: moist mucous membranes Neck Neck: Yes normal visual inspection, Yes full ROM and Yes trachea midline Chest Chest palpation & inspection: normal inspection of the chest Resp Effort & Inspection: normal respiratory effort, able to speak in complete sentences and no respiratory distress GI Inspection: Yes normal to inspection Back/Spine/Pelvis Cervical Spine: normal cervical lordosis Thoracic/Lumbar Spine: thoracic and lumbar spine normal to inspection Skin General skin exam: no rashes or lesions noted Neuro General: patient oriented x3, gait normal, tone normal and moves all extremities Extrem General: Yes normal to inspection and Yes capillary refill normal Assessment & Plan Assessment & Plan (1) Nephrolithiasis: Code(s): N20.0 - Calculus of kidney Category: Medical Plan Six-month follow-up imaging Patient Instructions: This note is constructed using voice recognition software. While every effort has been made to ensure accuracy cutter down errors may have been included. Imaging studies, laboratory and physical exam results were discussed and reviewed in detail. No major barriers to patient understanding were identified. An opportunity to ask questions regarding the treatment plan was provided. All questions were answered. The patient expressed understanding and agreement with the above treatment plan. The patient is aware they should contact our office by phone for worsening of their current condition or the appearance of new urologic symptoms. Compliance is encouraged with any medications and followup testing that is ordered. It is a privilege to participate in the urologic care of your patient. If you have any questions or concerns regarding treatment for the above conditions, or other urologic issues, please do not hesitate to contact me. The office telephone contact is [phone]. Sincerely, Dr Nba Rizo MD, [facility] - Urology Compassionate Specialist Care for the Genitourinary System Coding Level of Care Code New Pt Level 3 (53029) Diagnoses Nephrolithiasis N20.0
--- OUTSIDE RECORDS SUMMARY | 2025-06-28 20:22 | XMS_ITS | Encounter Summary ---
Author Organization [facility] Address [address] [place] [address] 7t [place] [address] Care Team Providers Care Powder Worker Name Role Phone Payal Limon MD Primary Care Provider [phone] Encounter Details Date Type Department Care Team (Latest Contact Info) Description 10/24/2020 Abstract [facility] CONVERSIONS Dental, Provider, DDS Social History Tobacco Use Types Packs/Day Years Used Date Smoking Tobacco: Never Assessed Sex and Gender Information Value Date Recorded Sex Assigned at Male 05/17/2022 10:17 AM EDT Legal Sex Male 10:17 AM EDT Gender Identity Male 05/17/2022 10:17 AM EDT Sexual Orientation Straight 05/17/2022 10 :17 AM EDT documented as of this encounter Plan of Treatment Upcoming Encounters Date Type Department Care Team (Late st Contact Info) Description 07/22/2025 9:30 AM EST Office Visit [facility] MEDICINE [address] [place] [address] Payal Limon MD [address] [place] [address] 09/04/2025 8:45 AM EST Office Visit [facility] ADULT DENTAL [address] [place] [address] Yasmeen Dasilva [address] [place] [address] documented as of this encounter Visit Diagnoses Not on filedocumented in this encounter Care Teams Powder Worker Relationship Specialty Start Date End Date Payal Limon MD [address] [place] [address] PCP - General Family Medicine 06/29/12 documented as of this encounter
--- OUTSIDE RECORDS SUMMARY | 2025-06-28 20:22 | XMS_ITS | Encounter Summary ---
Author Organization [facility] Address [address] [place] [address] 7t [place] [address] Care Team Providers Care Phlebotomy Support Tech Name Role Phone Payal Limon MD Primary Care Provider [phone] Encounter Details Date Type Department Care Team (Latest Contact Info) Description 07/25/2018 Abstract [facility] CONVERSIONS Dental, Provider, DDS Social History [...] Description 07/22/2025 9:30 AM EST Office Visit [facility] MEDICINE [address] [place] [address] Payal Limon MD [address] [place] [address] 09/04/2025 8:45 AM EST Office Visit [facility] ADULT DENTAL [address] [place] [address] Yasmeen Dasilva [address] [place] [address] documented as of this encounter Visit Diagnoses Not on filedocumented in this encounter Care Teams Phlebotomy Support Tech Relationship Specialty Start Date End Date Payal Limon MD [address] [place] [address] PCP - General Family Medicine 06/29/12 documented as of this encounter
--- OUTSIDE RECORDS SUMMARY | 2025-06-28 20:22 | XMS_ITS | Encounter Summary ---
Author Organization [employer] Address [address] [facility] 7t [place] [address] Care Team Providers Care Atomic Welder Name Role Phone Payal Limon MD Primary Care Provider [phone] Encounter Details Date Type Department Care Team ([facility] st Contact Info) Description 05/06/2025 Orders Only [facility] MEDICINE [address] [place], [place] [phone] Payal Limon MD [address] [place], [place] [phone] Prediabetes (Primary Dx) Social History Tobacco Use Types Packs/Day Years [...] Description 07/22/2025 9:30 AM EST Office Visit [facility] MEDICINE [address] [place] [address] Payal Limon MD [address] [place] [address] 09/04/2025 8:45 AM EST Office Visit [facility] ADULT DENTAL [address] [place] [address] Brown, Yasmeen [address] [place] [address] documented as of this encounter Visit Diagnoses Diagnosis Prediabetes- Primary Other abnormal glucose documented in this encounter Additional Health Concerns Assessment Noted Time PHQ-9 Depression Total Score: 0 11/07/19 24 11:02 AM EDT documented as of this encounter Care Teams Atomic Welder Relationship Specialty Start Date End Date Payal Limon MD [address] [place] [address] PCP - General Family Medicine 06/29/12 documented as of this encounter
--- OUTSIDE RECORDS SUMMARY | 2025-06-28 20:22 | XMS_ITS | Encounter Summary ---
Author Organization [employer] Address [address] [place] [address] 7t [place] [address] Care Team Providers Care Branch Specialist Name Role Phone Payal Limon MD Primary Care Provider [phone] Reason for Referral * Imaging (Routine) - Closed Specialty Diagnoses / Procedures Referred By Contac t Referred To Contact Radiology Diagnoses Elevated ALT measurement Dysphagia, unspecified type Procedures US Abdomen Complete Payal Limon MD [address] [place] [address] Phone: tel: fax: [facility] [address] [place] [phone] Phone: tel: fax: Referral ID Status Reason Start Date Expiration Date Visits Re quested Visits Authorized [id number] Closed 11/08/2023 11/07/2024 1 1 Encounter Details Date Type Department Care Team (Late st Contact Info) Description 11/08/2023 Orders Only [facility] MEDICINE [address] [place], [place] [phone] Payal Limon MD [address] [place] [address] Elevated ALT measurement (Primary Dx); [...] Description 07/22/2025 9:30 AM EST Office Visit [facility] MEDICINE [address] [place] [address] Payal Limon MD [address] [place] [address] 09/04/2025 8:45 AM EST Office Visit [facility] ADULT DENTAL [address] [place] [address] aYsmeen Dasilva [address] [place] [address] documented as of this encounter Procedures Procedure Name Priority Date/Time Associated Diagnosis Comments US ABDOMEN COMPLETE Routine 11/15/2023 8 :51 AM EDT Elevated ALT measurement Dysphagia, unspecified type documented in this encounter Results * US Abdomen Complete (11/15/2023 8:51 AM EDT) Anatomical Region Laterality Modality Abdomen Ultrasound 11/15/2023 8:51 AM EDT Narrative 11/16/2023 9:07 AM EDT [place] [address] Ultrasound Report Signed Patient: Jony Ryan MR# : [id number] : 1975 Acct:[id number] Age/Sex: 48 / M ADM Date: 11/15/23 Loc: HO.US Attending Dr: Payal iLmon MD Ordering Physician: Payal Limon MD Date of Service: 11/15/23 Procedure(s): US abdomen complete Accession Number(s): [id number] cc: Payal Limon MD EXAMINATION: US ABDOMEN [...] signed by Siddhartha Ferguson MD in OV> 11/16/2303 DD/ 0851 TD/TT: Finger Grip Machine Operator: DESMOND Procedure Note Donotuseinterpreter, Image - 11/16/[address] [address] Ultrasound Report Signed Patient: Jony Ryan [facility]# : [id number] : 1975Acct:[id number] Age/Sex: 48 / MADM Date: 11/15/23 Loc: HO.US Attending Dr: Payal Limon MD Ordering Physician: Payal Limon MD Date of Service: 11/15/23 Procedure(s): US abdomen complete Accession Number(s): [id number] cc: Payal Limon MD EXAMINATION: US ABDOMEN [...] in OV> 11/16/23 0903 DD/ 0851 TD/TT: Finger Grip Machine Operator: DESMOND us Payal Limon MD IMG US PROCEDURES Final Result documented in this encounter Visit Diagnoses Diagnosis Elevated ALT measurement- Primary Dysphagia, unspecified type documented in this encounter Additional Health Concerns Assessment Noted Time PHQ-9 Depression Total Score: 0 11/07/19 24 11:02 AM EDT documented as of this encounter Care Teams Branch Specialist Relationship Specialty Start Date End Date Payal Limon MD [address] [place] [address] PCP - General Family Medicine 06/29/12 documented as of this encounter
--- OUTSIDE RECORDS SUMMARY | 2025-06-28 20:22 | XMS_ITS | Patient Health Record ---
Author Organization [facility] Address [address] [place] [address] Care Team Providers Care Human Resources Temp Name Role Phone Alayna CAMPUZANO, Anita Primary Care Provider Unavail able Jose Painting Jr Unavailable [phone] Reason For Referral No Information Medications Medication SIG (Take, Route, Fr equency, Duration) Notes Start Date End Date Status Omeprazole Active Tylenol 8 Hour Activ e Albuterol Sulfate Ac tive Social History Tobacco Use: Social History Observation Description Date Details (start date - stop date) Never Smoker NA - NA Social History Drugs/Alcohol: Social Info Question Answer Notes Alcohol Screen Did you have a drink containing alcohol in the past year? No Points 0 Interpretation Negative Tobacco Use: Social Info Question Answer Notes Tobacco Use/Smoking Patient is a nonsmoker Additional Details Category Social Info Options Details Miscellaneous: Marital status: Occupation: Disabled Problems Problem Type SNOMED Code ICD Code Onset Dates Problem Status W/U Status Risk Notes Problem Nonspecific abno rmal findings on radiological and examination of gastrointestinal tract (793.4) Active confirmed Plan Of Treatment No Information Insurance Providers Payer Name Payer Address Payer Phone Subscriber Number Group Number Insured Name Patient Relationship to Insured Coverage Start Date Coverage End Date MEDICAID OF [facility] [address] [place] [phone] [id number] KOBE ARBOLEDA Self - patient is the insured Medical (General) History Medical History History ICD Code Diverticulitis ARF Surgical History Surgery Date(Month/Year) carpal tunnel
--- OUTSIDE RECORDS SUMMARY | 2025-06-28 20:22 | XMS_ITS | Encounter Summary ---
Author Organization [employer] Address [address] [facility] 7t [place] [address] Care Team Providers Care Daytime Caregiver Name Role Phone Payal Limon MD Primary Care Provider [phone] Encounter Details Date Type Department Care Team ([facility] st Contact Info) Description 05/03/2025 Orders Only [facility] MEDICINE [address] [place], [place] [phone] Payal Limon MD [address] [place], [place] [phone] Social History Tobacco Use Types Packs/Day Years [...] Description 07/22/2025 9:30 AM EST Office Visit [facility] MEDICINE [address] [place] [address] Payal Limon MD [address] [place] [address] 09/04/2025 8:45 AM EST Office Visit [facility] ADULT DENTAL [address] [place] [address] Brown, Yasmeen [address] [place] [address] documented as of this encounter Visit Diagnoses Not on filedocumented in this encounter Additional Health Concerns Assessment Noted Time PHQ-9 Depression Total Score: 0 11/07/19 24 11:02 AM EDT documented as of this encounter Care Teams Daytime Caregiver Relationship Specialty Start Date End Date Payal Limon MD [address] [place] [address] PCP - General Family Medicine 06/29/12 documented as of this encounter
--- OUTSIDE RECORDS SUMMARY | 2025-06-28 20:22 | XMS_ITS | Encounter Summary ---
Author Organization [facility] Address [address] [place] [address] 7t [place] [address] Care Team Providers Care Slitting Machine Feeder Name Role Phone Payal Limon MD Primary Care Provider [phone] Encounter Details Date Type Department Care Team (Latest Contact Info) Description 07/31/2019 Abstract [facility] CONVERSIONS Dental, Provider, DDS Social History Tobacco [...] Description 07/22/2025 9:30 AM EST Office Visit [facility] MEDICINE [address] [place] [address] Payal Limon MD [address] [place] [address] 09/04/2025 8:45 AM EST Office Visit [facility] ADULT DENTAL [address] [place] [address] Yasmeen Dasilva [address] [place] [address] documented as of this encounter Visit Diagnoses Not on filedocumented in this encounter Care Teams Slitting Machine Feeder Relationship Specialty Start Date End Date Payal Limon MD [address] [place] [address] PCP - General Family Medicine 06/29/12 documented as of this encounter
--- OUTSIDE RECORDS SUMMARY | 2025-06-28 20:22 | XMS_ITS | Encounter Summary ---
Author Organization [employer] Address [address] [facility] 7t [place] [address] Care Team Providers Care Under Baster Name Role Phone Payal Limon MD Primary Care Provider Encounter Details Date Type Department Care Team ([facility] st Contact Info) Description 11/16/2023 Orders Only [facility] MEDICINE [address] [place], [place] [phone] Payal Limon MD [address] [place], [place] [phone] Social History Tobacco Use Types Packs/Day Years [...] Office Visit [facility] MEDICINE [address] [place] [address] Payal Limon MD [address] [place] [address] 09/04/2025 8:45 AM EST Office Visit [facility] ADULT DENTAL [address] [place] [address] Brown, Yasmeen [address] [place] [address] documented as of this encounter Visit Diagnoses Not on filedocumented in this encounter Additional Health Concerns Assessment Noted Time PHQ-9 Depression Total Score: 0 11/07/19 24 11:02 AM EDT documented as of this encounter Care Teams Under Baster Relationship Specialty Start Date End Date Payal Limon MD [address] [place] [address] PCP - General Family Medicine 06/29/12 documented as of this encounter
--- OUTSIDE RECORDS SUMMARY | 2025-06-28 20:22 | XMS_ITS | Encounter Summary ---
Author Organization [employer] Address [address] [facility] 7t [place] [address] Care Team Providers Care Whitewasher Name Role Phone Jose Carlos Limon MD Primary Care Provider [phone] Reason for Visit * Reason Onset Date Comments Telephone Call 05/10/2025 Encounter Details Date Type Department Care Team ([facility] st Contact Info) Description 05/10/2025 Telephone [facility] MEDICINE [address] [place], [place] [phone] Jose Carlos Limon MD [address] [place], [place] [phone] Telephone Call Social History Tobacco Use Types Packs/Day Years [...] AM EDT documented as of this encounter Miscellaneous Notes * Telephone Encounter - Martha Oliveros RN - 06/28/2025 2:17 PM EST Pt walked in asking about status of pulmonology referral or imaging suggested by ED after 05/01/25 visit. Message previously sent to Dr. Limon 05/10/25 regarding this (in thread below). Will forward to covering provider to advise. * Telephone Encounter - Martha Oliveros RN - 06/10/2025 10:06 AM EST Pt walked in asking about status of glucometer supplies. Sent by PCP 05/19/25. Called [facility] today, Rx was filled but pt never picked up. Payment will be as below, waterfront director informed pt. $6 - machine $7 - lancets $10 - test strips * Addendum Note - Jose Carlos Limon MD - 05/19/2025 3:46 PM ESTAddended by: JOSE CARLOS LIMON on: 05/19/2025 03:46 PM Modules accepted: Orders * Addendum Note - Martha Oliveros RN - 05/10/2025 12:25 PM EDTAddended by: MARTHA OLIVEROS on: 05/10/2025 12:25 PM Modules accepted: Orders * Telephone Encounter - Martha Oliveros RN - 05/10/2025 11:55 AM EDT Pt had call with danica hernandez RN regarding ED visit 05/01/25 for kidney stones (right sided abdominalpain). He has follow up with urology in June. He reports concern about pulmonary nodules found on Ct of the abdomen 05/01/25 at [facility]. The radiologist recommendation states consider chest CT follow up , will ask PCP about follow up imaging or pulmonology referral as appropriate. He is on metformin 500mg daily, will pend glucometer to provider. Advised pt nurses will call back with update, no further questions. * Telephone Encounter - Luther Dumont - 05/10/2025 10:37 AM EDT Patient walked in requesting the following things: Glucose monitor following his A1C results. ED follow up, Patient was seen at [facility] on 05/01/25 for pain in the right side of body. Referral for a Thermal Spray Operator, regarding ED visit results. documented in this encounter Plan of Treatment Upcoming Encounters Date Type Department Care Team (Late st Contact Info) Description 07/22/2025 9:30 AM EST Office Visit [facility] MEDICINE [address] [place] [address] Jose Carlos Limon MD [address] [place] [address] 09/04/2025 8:45 AM EST Office Visit [facility] ADULT DENTAL [address] [place] [address] Yasmeen Dasilva [address] [place] [address] documented as of this encounter Visit Diagnoses Diagnosis Prediabetes Other abnormal glucose documented in this encounter Additional Health Concerns Assessment Noted Time PHQ-9 Depression Total Score: 0 11/07/19 24 11:02 AM EDT documented as of this encounter Care Teams Whitewasher Relationship Specialty Start Date End Date Jose Carlos Limon MD [address] [place] [address] PCP - General Family Medicine 06/29/12 documented as of this encounter
--- OUTSIDE RECORDS SUMMARY | 2025-06-28 20:22 | XMS_ITS | Clinical Summary ---
Author Organization [employer] Address [address] [place] [address] [address] [place] [address] Care Team Providers Care Commercial Pest Control Technician Name Role Phone Payal Limon MD Primary Care Provider [phone] Allergies Active Allergy Reactions Criticality Noted Date [...] A DAY 90 tablet 1 5 Active metFORMIN XR (Glucophage-XR) 500 MG 24 hr tablet Take 1 tablet (500 mg) by mouth with evening meal. Do not crush, chew, or split. 90 tablet 3 5 05/06/20 26 Active FREESTYLE LITE test stripIndication s:Prediabetes Use to test blood sugar 1 time daily 50 each 12 5 05/10/20 26 Active Lancets miscIndications :Prediabetes Use to test blood sugar 1 time daily 50 each 5 Active Alcohol Swabs 70 % padsIndications :Prediabetes Use to test blood sugar 1 times daily 50 each 5 Active Blood Glucose Monitoring Suppl ([employer] [place] Lite) w/Device kitIndications: Prediabetes Use to test blood sugar 1 time daily 1 kit 5 Active Active Problems Problem Noted Date Diagnosed Date Metabolic dysfunction-associ ated steatotic liver disease (MASLD) 05/05/2024 Assessment & Plan (02/03/2025 3:29 PM EDT): - Last liver test: 11/07/23 mildly elevated ALT, otherwise normal - Last US / elastography: 11/05/23 - FIB4 index 0.97 - GI: [facility] - continue working on lifestyle modifications - continue surveillance study Assessment & Plan (07/17/2024 11:34 AM EST): - Last liver test: 11/07/23 mildly elevated ALT, otherwise normal - Last US / elastography: 11/05/23 - FIB4 index 0.97 - GI: [facility] - continue working on lifestyle modifications - continue surveillance study Assessment & Plan (05/05/2024 6:09 AM EDT): - Last liver test: 11/07/23 mildly elevated ALT, otherwise normal - Last US / elastography: 11/05/23 - FIB4 index 0.97 - GI: [facility] - continue working on lifestyle modifications - [...] Plan (02/03/2025 3:30 PM EDT): -Followed by [facility] GI -Negative H. Pylori stool antigen in 10/2022 and 12/2022 -s/p EGD evaluation several times, most recently on 02/22/24, biopsy result shows chronic inactive esophagitis. Celiac panel was negative for celiac disease -Continue Pantoprazole 40 mg BID, as prescribed by GI Specialist -Avoid irritants Assessment & Plan (07/17/2024 11:34 AM EST): -Followed by [facility] GI -Negative H. Pylori stool antigen in 10/2022 and 12/2022 -s/p EGD evaluation several times, most recently on 02/22/24, biopsy result shows chronic inactive esophagitis. Celiac panel was negative for celiac disease -Continue Pantoprazole 40 mg BID, as prescribed by GI Specialist -Avoid irritants Assessment & Plan (05/01/2024 12:22 PM EDT): -Followed by [facility] GI -Negative H. Pylori stool antigen in 10/2022 and 12/2022 -s/p EGD evaluation several times, most recently on 02/22/24, biopsy result shows chronic inactive esophagitis. Celiac panel was negative for celiac disease -Continue Pantoprazole 40 mg BID, as prescribed by GI Specialist -Avoid irritants Assessment & Plan (12/28/2022 10:48 AM EDT): -Followed by [facility] GI -Negative H. Pylori stool antigen in [...] (11/05/2022 5:11 AM EDT): - Followed by [facility] GI - Hx H Pylori in 2012, [...] Plan (07/28/2022 6:06 AM EST): -Followed by [facility] GI -Hx H Pylori in 2012, s/p [...] Encounters Date Type Department Care Team Description 06/18/2025 Telephone [facility] [address] Payal Limon MD july06/10/2025 Telephone [facility] [address] Payal Limon MD Referral 05/14/2025 Travel 05/10/2025 Telephone [facility] [address] [facility] [address] Payal Limon MD Telephone Call 05/06/2025 Orders Only [facility] [address] Payal Limon MD Prediabetes (Primary Dx) 05/06/2025 Results Follow-Up [facility] [address] Payal Limon MD Hemoglobin A1c 05/03/2025 Orders Only [facility] [place] [address] Payal Limon MD 05/03/2025 Orders Only [facility] [place] [address] Payal Limon MD Prediabetes (Primary Dx) 05/03/2025 Telephone [facility] [place] [address] Payal Limon MD Results 05/01/2025 Results Follow-Up [facility] [place] [address] Abdomen Pelvis w/ Contrast 05/01/2025 Orders Only GENERIC EXTERNAL DATA DEPARTMENT [...] 01/22/2025 9:23 AM EDT Plan of Treatment Upcoming Encounters Date Type Department Care Team (Late st Contact Info) Description 07/22/2025 9:30 AM EST Office Visit [facility] [address] [place] [address] Payal Limon MD [address] [place] [address] 09/04/2025 8:45 AM EST Office Visit [facility] [address] [place] [address] Sai Dasilvaaris [address] [place] [address] Health Maintenance Due Date Last Done Comments [...] X-Ray: [facility] 08/13/2024 08/12/19 24, 11/30/2022, 10/12/2022 COVID-19 Vaccine ( season) 2025 05/24/2022, 07/31/2021, 12/22/2020, Additional history exists Influenza Vaccine (#1) 2025 , 07/30/2019, 08/01/2018, Additional history exists Depression Screening 05/01/2025 05/01/2024, 11/07/19 24 DTaP/Tdap/Td Vaccines (2 - Td or Tdap) 06/19/2025 06/19/2015, 07/18/2003 Alcohol/Substance Use Screening 07/17/2025 07/17/2024 Disability Screening 01/22/2026 01/22/2025 SDOH Screening 01/22/2026 01/22/2025 Tobacco Screening 01/22/2026 01/22/2025 Diabetes: Hemoglobin A1C 05/06/2026 025, 01/22/2025, 11/07/2023, Additional history exists Dental X-Ray: Full Mouth 05/11/2026 023, 02/11/2022, 02/11/2022 Zoster Vaccines (1 of 2) 2026 Lipid Panel 01/22/2030 01/22/2025, 04/2 08/2023, 05/06/2023, Additional history exists Colonoscopy 08/10/2032 08/10/2022, 08/10/2022 Colorectal Cancer Screening 08/10/2032 RSV Patients [...] Procedure Name Priority Date/Time Associated Diagnosis Comments HEMOGLOBIN A1C Routine 05/06/2025 9:[address] ABDOMEN PELVIS W CONTRAST Routine 05/01/2025 10:46 AM EDT URINALYSIS, COMPLETE, WITH REFLEX TO CULTURE Routine 05/01/2025 8:13 AM EDT URINALYSIS WITH REFLEX MICROSCOPIC Routine 05/01/2025 8:13 AM EDT LIPASE Routine 05/01/2025 7:53 AM EDT BASIC METABOLIC PANEL Routine 05/01/2025 7:53 AM EDT HEPATIC FUNCTION PANEL Routine 05/01/2025 7:53 AM EDT CBC WITH AUTO DIFFERENTIAL Routine 05/01/2025 7:53 AM EDT LIPID PANEL WITH REFLEX TO DIRECT LDL [...] Relevant to Health Maintenance Results * (ABNORMAL) Hemoglobin A1c (05/06/2025 9:26 AM EDT) Hemoglobin A1c 6.3(H) <6.0 % [facility] Comment:Hemoglobin A1C Refer ence Range Adults: 4.8 - 6.0 % Non diabetic: < 6.0 % Goal: < 7.0 %Additional Action Suggested: > 8.0 %Note: Hemoglobin A1c results are invalid for patients with abnormal amounts of HbF. Blood transfusions may impact the HbA1c concentration in the patient sample. Estimated Average Glucose 134 mg/dL [facility] Comment:eAG = Estimated ave rage glucose which is %A1C expressed asaverage glucose, using the formula of the [id number] Glucose study (ADAG), Diabetes Care, Vol.31,#8,Feb. 2007 Blood Venous blood specimen / Unknown 05/06/2025 9:26 AM EDT 05/06/2025 9:26 AM EDT us Payal Limon MD LAB BLOOD ORDERABLES Final Resul t [facility] [address] [place] [phone] * CT Abdomen Pelvis w/ Contrast (05/01/2025 10:46 AM EDT) Anatomical Region Laterality Modality Body, Pelvis, Abdomen Computed T omography 05/01/2025 10:4 6 AM EDT Narrative 05/01/2025 11:29 AM EDT [address] [address] [address] Scan Report Signed Patient: Jony Ryan MR# : [id number] : 1975 Acct:[id number] Age/Sex: 49 / M ADM Date: 05/01/25 Loc: HO.ED Attending Dr: Ordering Physician: Preeti Rodriguez DO Date of Service: 05/01/25 Procedure(s): CT abdomen pelvis w IV con Accession Number(s): [id number] cc: Preeti Rodriguez DO; Payal Limon MD Report Number: [id number]: Total DLP = 465.00 mGy-cm Reason for Exam: RLQ pain EXAMINATION: CT ABDOMEN PELVIS WITH IV CONTRAST HISTORY: RLQ pain COMPARISON: Abdominal ultrasound post recent October 2023 and March 2024 and abdominal and pelvic CT October 2017 TECHNIQUE: CT scan of the abdomen and pelvis was performed following administration of 85 mL Omnipaque 350 using standard departmental protocol. Coronal and sagittal reformatted images were generated and reviewed. This CT exam was performed with one or more of the following dose reduction techniques: automated exposure control, adjustment of the mA and/or kV according to patient size, use of iterative reconstruction technique. DLP: 465 mGy-cm FINDINGS: LOWER CHEST: 6 mm peripheral or subpleural right lower lobe nodule adjacent to the major fissure axial image 13 series 4 and 6 mm peripheral or subpleural right middle lobe nodule axial image 22 series 4. These probably represent peripheral or subpleural lymph nodes. Minimal subsegmental atelectasis at the right lung base. CARDIOVASCULATURE: The heart is normal in size. There is no pericardial effusion. LIVER: The liver is normal in size and contour. No liver mass is identified. The hepatic and portal veins are patent. GALLBLADDER / BILE DUCTS: The gallbladder is unremarkable. There is no intra or extrahepatic biliary ductal dilatation. SPLEEN: The spleen is normal in size. No focal splenic lesion is identified. PANCREAS: The pancreas is unremarkable in appearance. ADRENAL GLANDS: Within normal limits. KIDNEYS/RETROPERITONEUM: No renal calculi are identified. There is no hydronephrosis. 7 mm low-attenuation lesion in the posterior medial mid pole of the left kidney for example axial image 39 series 3 and coronal reconstructed image 59 series 6. This is not appreciated on prior CT or ultrasound. There is mild right ureteral dilatation. There is a 3 mm right distal ureteral stone for example coronal image 66 series 6 and axial image 587 series 4. LYMPH NODES: Small mesenteric and retroperitoneal lymph nodes. No enlarged lymph nodes. VASCULATURE: The abdominal aorta is normal in caliber. MESENTERY/PERITONEUM: No free fluid. No masses. There is no free intraperitoneal gas. STOMACH: Normal SMALL BOWEL: The small bowel is normal in caliber. No rotation or wall thickening. COLON: There is a small linear radiopaque density seen in the distal transverse colon for example axial image 20 series 3, axial image 159 series 4 and coronal reconstructed image 29 series 6. Measures 7 mm in length. This may represent something the patient has ingested. The colon is otherwise unremarkable. No dilatation or wall thickening. APPENDIX: Normal. URINARY BLADDER/PELVIC ORGANS: The urinary bladder is unremarkable. The prostate gland does not appear enlarged. BONES / SOFT TISSUES: No suspicious bony or soft tissue abnormalities. Mild degenerative changes of the spine. Small umbilical hernia containing fat. CT/CT abdomen pelvis w IV con IMPRESSION: Mild right ureteral dilatation from a 3 mm right distal ureteral stone. No renal stone or hydronephrosis. 7 mm low-attenuation lesion in the left kidney not appreciated on prior exams. Follow-up renal ultrasound recommended. Normal appendix. 7 mm linear high attenuation density in the distal transverse colon. This probably represents something the patient has ingested. No wall thickening or dilatation to suggest secondary inflammation. 6 mm peripheral or subpleural right middle and right lower lobe pulmonary nodules. These may represent peripheral or subpleural lymph nodes. Consider chest CT follow-up if clinically warranted. Electronically signed by: Vicki Day MD 05/01/2025 11:26 AM EDT Dictated By: Vicki Day MD Signed By: <Electronically signed by Vicki Day MD in OV> 05/01/25 1126 DD/ 1046 TD/TT: 05/01/25 1107 Utility Driver: CARY Procedure Note Donotuseinterpreter, Image - 05/01/[address] [address] [address] Scan Report Signed Patient: Jony Ryan [facility]# : [id number] : 1975Acct:[id number] Age/Sex: 49 / MADM Date: 05/01/25 Loc: .ED Attending Dr: Ordering Physician: Preeti Rodriguez DO Date of Service: 05/01/25 Procedure(s): CT abdomen pelvis w IV con Accession Number(s): [id number] cc: Preeti Rodriguez DO; Payal Limon MD Report Number: [id number]: Total DLP = 465.00 mGy-cm Reason for Exam: RLQ pain EXAMINATION: CT ABDOMEN PELVIS WITH IV CONTRAST HISTORY: RLQ pain COMPARISON: Abdominal ultrasound post recent October 2023 and March 2024 and abdominal and pelvic CT October 2017 TECHNIQUE: CT scan of the abdomen and pelvis was performed following administration of 85 mL Omnipaque 350 using standard departmental protocol. Coronal and sagittal reformatted images were generated and reviewed. This CT exam was performed with one or more of the following dose reduction techniques: automated exposure control, adjustment of the mA and/or kV according to patient size, use of iterative reconstruction technique. DLP: 465 mGy-cm FINDINGS: LOWER CHEST: 6 mm peripheral or subpleural right lower lobe nodule adjacent to the major fissure axial image 13 series 4 and 6 mm peripheral or subpleural right middle lobe nodule axial image 22 series 4. These probably represent peripheral or subpleural lymph nodes. Minimal subsegmental atelectasis at the right lung base. CARDIOVASCULATURE: The heart is normal in size. There is no pericardial effusion. LIVER: The liver is normal in size and contour. No liver mass is identified. The hepatic and portal veins are patent. GALLBLADDER / BILE DUCTS: The gallbladder is unremarkable. There is no intra or extrahepatic biliary ductal dilatation. SPLEEN: The spleen is normal in size. No focal splenic lesion is identified. PANCREAS: The pancreas is unremarkable in appearance. ADRENAL GLANDS: Within normal limits. KIDNEYS/RETROPERITONEUM: No renal calculi are identified. There is no hydronephrosis. 7 mm low-attenuation lesion in the posterior medial mid pole of the left kidney for example axial image 39 series 3 and coronal reconstructed image 59 series 6. This is not appreciated on prior CT or ultrasound. There is mild right ureteral dilatation. There is a 3 mm right distal ureteral stone for example coronal image 66 series 6 and axial image 587 series 4. LYMPH NODES: Small mesenteric and retroperitoneal lymph nodes. No enlarged lymph nodes. VASCULATURE: The abdominal aorta is normal in caliber. MESENTERY/PERITONEUM: No free fluid. No masses. There is no free intraperitoneal gas. STOMACH: Normal SMALL BOWEL: The small bowel is normal in caliber. No rotation or wall thickening. COLON: There is a small linear radiopaque density seen in the distal transverse colon for example axial image 20 series 3, axial image 159 series 4 and coronal reconstructed image 29 series 6. Measures 7 mm in length. This may represent something the patient has ingested. The colon is otherwise unremarkable. No dilatation or wall thickening. APPENDIX: Normal. URINARY BLADDER/PELVIC ORGANS: The urinary bladder is unremarkable. The prostate gland does not appear enlarged. BONES / SOFT TISSUES: No suspicious bony or soft tissue abnormalities. Mild degenerative changes of the spine. Small umbilical hernia containing fat. CT/CT abdomen pelvis w IV con IMPRESSION: Mild right ureteral dilatation from a 3 mm right distal ureteral stone. No renal stone or hydronephrosis. 7 mm low-attenuation lesion in the left kidney not appreciated on prior exams. Follow-up renal ultrasound recommended. Normal appendix. 7 mm linear high attenuation density in the distal transverse colon. This probably represents something the patient has ingested. No wall thickening or dilatation to suggest secondary inflammation. 6 mm peripheral or subpleural right middle and right lower lobe pulmonary nodules. These may represent peripheral or subpleural lymph nodes. Consider chest CT follow-up if clinically warranted. Electronically signed by: Vicki Day MD 05/01/2025 11:26 AM EDT Dictated By: Vicki Day MD Signed By: <Electronically signed by Vicki Day MD in OV> 05/01/25 1126 DD/ 1046 TD/TT: 05/01/25 1107 Utility Driver: CARY [facility] External Provider IMG CT PROCEDURES Final Result * (ABNORMAL) Urinalysis, Complete, with Reflex to Culture (05/01/2025 8:13 AM EDT) Color Urine Dark Yellow [facility] Appearance Urine Cloudy [facility] PH 5.5 5.0 - 9.0 [facility] Glucose Urine UA Negative Negative mg/dL [facility] Urine Blood Large (3+)(A) Negative [facility] Specific Rosanky - Urine >=1.030(H) 1.005 - 1.025 [facility] Urine Protein 30 (1+)(A) Neg-Trace mg/dL [facility] Urine Ketones Trace Negative mg/dL [facility] Nitrite Urine Negative Negative [facility] Leukocyte Esterase Urine Trace(A) Negative [facility] RBC Urine >20(A) 0 - 2 /HPF [facility] Urine WBC 0-5 0 - 5 /HPF [facility] Urine Squamous Epithelial Cell 0-2 0 - 2 /HPF [facility] Urine Bacteria None Seen None Seen [facility] Hyaline Casts, Urine 3-5 0 - 2 /LPF [facility] 05/01/2025 8:13 AM EDT 05/01/2025 8:17 AM EDT Narrative [facility] - 05/01/2025 8:28 AM EDT [id number], Clean Catch Generic External Data Provider LAB URINE ORDERAB LES Final Result [facility] [address] [place] [address] [phone] * (ABNORMAL) Urinalysis w/reflex microscopic (05/01/2025 8:13 AM EDT) Color Urine Dark Yellow [facility] Appearance Urine Cloudy [facility] PH 5.5 5.0 - 9.0 [facility] Glucose Urine UA Negative Negative mg/dL [facility] Urine Blood Large (3+)(A) Negative [facility] Specific Ros[place]y - Urine >=1.030(H) 1.005 - 1.025 [facility] Urine Protein 30 (1+)(A) Neg-Trace mg/dL [facility] Urine Ketones Trace Negative mg/dL [facility] Nitrite Urine Negative Negative [facility] Leukocyte Esterase Urine Trace(A) Negative [facility] 05/01/2025 8:13 AM EDT 05/01/2025 8:17 AM EDT Narrative [facility] - 05/01/2025 8:22 AM EDT [id number], Clean Catch Generic External Data Provider LAB URINE ORDERAB LES Final Result Performing Organization Address [facility] de Phone Number [facility] [address] [place] [address] [phone] * (ABNORMAL) CBC auto differential (05/01/2025 7:53 AM EDT) White Blood Count 5.5 4.8 - 10.8 X10*3/uL [facility] Red Blood Count 6.61(H) 4.60 - 5.80 X10*6/uL [facility] Hemoglobin 14.0 14.0 - 18.0 g/dl [facility] Hematocrit 48.5 42.0 - 52.0 % [facility] Mean Corpuscular Volume 73.4(L) 80.0 - 98.0 fL [facility] Mean Corpuscular Hemoglobin 21.2(L) 27.0 - 33.0 pg [facility] Mean Corpuscular HGB Conc 28.9(L) 31.0 - 36.0 g/dl [facility] Red Cell Distribution Width 15.1 11.0 - 16.0 % [facility] Platelet Count 236 160 - 400 X10*3/uL [facility] Mean Platelet Volume 9.5 9.4 - 12.4 fL [facility] Neutrophils Percent Auto 45.8 45 - 73 % [facility] Imm Gran Pct Auto 0.2 0.0 - 0.4 % [facility] Lymphocytes Percent Auto 41.5(H) 20 - 40 % [facility] Monocytes Percent Auto 10.3 2 - 11 % [facility] Eosinophils Percent Auto 1.1 0 - 4 % [facility] Basophils Percent Auto 1.1 0 - 2 % [facility] NRBC Pct Auto 0.0 0.0 - 0.2 /100WBC [facility] Neutrophils Absolute Auto 2.5 2.0 - 8.3 x10*3/uL [facility] Imm Gran Abs Auto 0.01 0.00 - 0.03 X10*3/uL [facility] Lymphocytes Absolute Auto 2.3 1.2 - 4.9 X10*3/uL [facility] Monocytes Absolute Auto 0.6 0.1 - 1.2 X10*3/uL [facility] Eosinophils Absolute Auto 0.1 0.0 - 0.4 X10*3/uL [facility] Basophils Absolute Auto 0.1 0.0 - 0.2 X10*3/uL [facility] NRBC Abs Auto 0.000 0.0 - 0.012 X10*3/uL [facility] 05/01/2025 7:53 AM EDT 05/01/2025 7:56 AM EDT us Generic External Data Provider LAB BLOOD ORDERAB LES Final Result [facility] [address] [place] [address] [phone] * (ABNORMAL) Lipase (05/01/2025 7:53 AM EDT) Pathologist [facility] Lipase 105(H) 8 - 78 U/L [facility] 05/01/2025 7:53 AM EDT 05/01/2025 7:56 AM EDT Generic External Data Provider LAB BLOOD ORDERAB LES Final Result [facility] [address] [place] [address] [phone] * Hepatic Function Panel (05/01/2025 7:53 AM EDT) [facility] Bilirubin, Total 0.4 0.0 - 1.0 mg/dL [facility] Bilirubin, Direct 0.2 0.0 - 0.5 mg/dL [facility] Aspartate Amino Transferase 28 5 - 37 U/L [facility] Alanine Aminotransferase 33 0 - 40 U/L [facility] Total Protein 7.6 6.5 - 8.0 g/dL [facility] Albumin Level 4.6 3.5 - 5.0 g/dL [facility] Alkaline Phosphatase 68 39 - 117 U/L [facility] 05/01/2025 7:53 AM EDT 05/01/2025 7:56 AM EDT Generic External Data Provider LAB BLOOD ORDERAB LES Final Result [facility] [address] [place] [address] [phone] * (ABNORMAL) Basic Metabolic Panel (05/01/2025 7:53 AM EDT) [facility] Sodium 141 135 - 145 mmol/L [facility] Potassium 4.0 3.3 - 5.1 mmol/L [facility] Chloride 107 96 - 108 mmol/L [facility] Carbon Dioxide 27 22 - 29 mmol/L [facility] Anion Gap 11(L) 12 - 20 [facility] Urea Nitrogen (BUN) 10 9 - 16 mg/dL [facility] Creatinine, Serum 1.10 0.5 - 1.4 mg/dL [facility] Creatinine Clr Calc Pharmacy 80.8 [facility] Comment:eGFR (calculated fro m the MDRD study equation) and eCrCl(calculated from the Cockcroft-Gault equation) are based ondifferent parameters and may not yield comparable results.If eCrCl result is absurd, please check patient'sheight/weight. Estimated Glomerular Filt Rate >60 [facility] Comment:Chronic Kidney Disea se: Estimated GFR < 60 mL/min/1.60p9Bcfpoh Kidney Disease: Estimated GFR < 15 mL/min/1.73m2 Glucose 111 60 - 115 mg/dL [facility] Calcium 9.4 8.4 - 10.2 mg/dL [facility] 05/01/2025 7:53 AM EDT 05/01/2025 7:56 AM EDT us Generic External Data Provider LAB BLOOD ORDERAB LES Final Result [facility] [address] [place] [address] [phone] * (ABNORMAL) Lipid Panel with Reflex to Direct LDL (01/22/2025 10:52 AM EDT) Triglycerides 105 <150 mg/dL [facility] Comment:Desirable Triglyceri de: less than 150 mg/dLBorderline High Triglyceride 150-199 mg/dLHigh Triglyceride: 200-499 mg/dLVery High Triglyceride: greater than or equal to 5OO mg/dL Cholesterol 175 <200 mg/dL [facility] Comment:Desirable Cholestero l: less than 200 mg/dLBorderline High Cholesterol: 200-239 mg/dLHigh Cholesterol: greater than 239 mg/dL LDL Cholesterol Calculated 119(H) <100 mg/dL [facility] Comment:Desirable LDL: less than 100 mg/dLNear Optimal/Above Optimal LDL: 110- 129 mg/dLBorderline High LDL: 130-159 mg/dLHigh LDL: 160-189 mg/dLVery High LDL: greater than or equal to 190 mg/dL HDL Cholesterol 35(L) >40 mg/dL [facility] Comment:Desirable HDL: great er than 40 mg/dL Note: This HDL assay may give artificially low results in patients with liver disease. Blood 01/22/2025 10:5 2 AM EDT 01/22/2025 10:52 AM EDT Payal Limon MD LAB BLOOD ORDERABLES Final Resul t Performing Organization Address [facility] Co de Phone Number [facility] [address] [place] [phone] * Hepatitis C Antibody with Reflex to HCV, RNA, Quantitative, Real-Time PCR (08/03/2024 7:49 AM EST) Hepatitis C Antibody Nonreactive Nonreactive [facility] Comment:Antibodies to HCV no t detected; does not exclude early acuteHCV infection. Blood Venous blood specimen / Unknown 08/03/2024 7:49 AM EST 08/03/2024 7:49 AM EST Payal Limon MD LAB BLOOD ORDERABLES Final Resul t Performing Organization Address [facility] Co de Phone Number [facility] [address] [place] [address] [phone] HIV-1/2 Antigen and Antibodies, Fourth Generation, with Reflexes (08/03/2024 7:49 AM EST) HIV AB/AG Nonreactive Nonreactive [facility] Comment:HIV-1 p24 Ag and/or HIV-1/HIV-2 Ab not detected.A test result that is nonreactive does not exclude thepossibility of exposure to or infection with HIV-1 and/orHIV-2. Nonreactive results in this assay for individualswith prior exposure to HIV-1 and/or HIV-2 may be due toantigen and antibody levels that are below the limit ofdetection of this assay.The [employer]MiniLuxe HIV Ag/Ab Combo assay result andsupplemental assay results should be interpreted inconjunction with the patient's clinical presentation,history and other laboratory results. If the results areinconsistent with clinical evidence, additional testing issuggested to confirm the result. Blood Venous blood specimen / Unknown 08/03/2024 7:49 AM EST 08/03/2024 7:49 AM EST Payal Limon MD LAB BLOOD ORDERABLES Final Resul t Performing Organization Address [facility] Co de Phone Number [facility] [address] [place] [address] [phone] Colonoscopy (08/10/2022 9:17 PM EST) Colonoscopy Normal Normal [facility] us Jules Arias MD HEALTH MAINTENANCE Edited Resul t - Final Performing Organization Address [facility] de Phone Number [facility] [address] [place] [address] [phone] from Last 3 Months or Most Recently Relevant to Health Maintenance Insurance [facility] [employer] [facility] MEDICAID STAND ADULT Care Teams Commercial Pest Control Technician Relationship Specialty Start Date End Date Payal Limon MD [address] [place] [phone] PCP - General Family Medicine 06/29/12
--- OUTSIDE RECORDS SUMMARY | 2025-06-28 20:22 | XMS_ITS | Encounter Summary ---
Author Organization [employer] Address [address] [facility] [address] [place] [address] Care Team Providers Care Tax Assistant Name Role Phone Payal Limon MD Primary Care Provider [phone] Encounter Details Date Type Department Care Team ([facility] st Contact Info) Description 10/14/2023 Orders Only [facility] MEDICINE [address] [place], [place] [phone] Payal Limon MD [address] [place], [place] [phone] Social History Tobacco Use Types Packs/Day Years [...] Description 07/22/2025 9:30 AM EST Office Visit [facility] MED[facility]INE [address] [place] [phone] Payal Limon MD [address] [place] [address] 09/04/2025 8:45 AM EST Office Visit [facility] ADULT DENTAL [address] [place] [address] Brown, Yasmeen [address] [place] [address] documented as of this encounter Visit Diagnoses Not on filedocumented in this encounter Additional Health Concerns Assessment Noted Time PHQ-9 Depression Total Score: 0 07/27/19 23 3:46 PM EST documented as of this encounter Care Teams Tax Assistant Relationship Specialty Start Date End Date Payal Limon MD [address] [place] [phone] PCP - General Family Medicine 06/29/12 documented as of this encounter
--- OUTSIDE RECORDS SUMMARY | 2025-06-28 20:22 | XMS_ITS | Encounter Summary ---
Author Organization [employer] Address [address] [facility] [address] [place] [address] Care Team Providers Care Stone Rubber Name Role Phone Payal Limon MD Primary Care Provider [phone] Encounter Details Date Type Department Care Team ([facility] st Contact Info) Description 05/01/2025 Results Follow-Up [facility] MEDICINE [address] [place], [place] [phone] Payal Limon MD [address] [place], [place] [phone] CT Abdomen Pelvis w/ Contrast Social History Tobacco Use Types Packs/Day Years [...] Description 07/22/2025 9:30 AM EST Office Visit [facility] MEDICINE [address] [place] [phone] Payal Limon MD [address] [place] [address] 09/04/2025 8:45 AM EST Office Visit [facility] ADULT DENTAL [address] [place] [address] Brown, Yasmeen [address] [place] [address] documented as of this encounter Visit Diagnoses Not on filedocumented in this encounter Additional Health Concerns Assessment Noted Time PHQ-9 Depression Total Score: 0 11/07/19 24 11:02 AM EDT documented as of this encounter Care Teams Stone Rubber Relationship Specialty Start Date End Date Payal Limon MD [address] [place] [phone] PCP - General Family Medicine 06/29/12 documented as of this encounter
== END 2025-06-28 16:25 | disposition home or self-care (01) ==
LOC: HO.HUSH 15:33
PROVIDERS: PCP Family Medicine; Visit Provider Urology
DX: N20.0 Calculus of kidney (principal)
CPT/HCPCS: 99203

== ENCOUNTER → 2025-06-28 15:33 | Outpatient (BNVA) | payer OTHER, SELFPAY | PROVIDERS: PCP Family Medicine; Visit Provider Urology | DX: N20.0 Calculus of kidney (principal) | CPT/HCPCS: 99202 ==